=== PATIENT | female | born 1935 | race Caucasian/White ===

== ENCOUNTER 2016-07-22 07:55 | Day surgery (SDC) | payer MEDICARE, BC ==
[~2016-07-22 07:55] MED LIST: Sodium Chloride 0.9% 10 ML Syringe FLUSH PRN
[2016-07-22 10:13] VITALS: BP 158/68
--- NOTE | 2016-07-22 12:58 | OR ---
DATE OF PROCEDURE: 07/22/2016 POSTOPERATIVE CARE: Postoperative care will be provided mainly at the [address] [place] [address] Eye [facility] in conjunction with [facility]. PREOPERATIVE DIAGNOSIS: Cataract, left eye. PREOPERATIVE DIAGNOSIS: Cataract, left eye. PROCEDURE: Phacoemulsification with intraocular lens placement, left eye. ANESTHESIA: Topical and intracameral. ESTIMATED BLOOD LOSS: Minimal. COMPLICATIONS: None. PATHOLOGY SPECIMENS: None. SURGICAL FINDINGS: None. INDICATION FOR PROCEDURE: The patient is an 81-year-old female with history of a visually significant cataract in the left eye, which interfered with activities of daily living. This consisted of a nuclear sclerosis cataract. Following careful discussion of the risks, benefits and alternatives to cataract extraction with intraocular lens placement including blindness and , the patient elected to proceed, and informed, written consent was obtained prior to the procedure. DESCRIPTION OF THE PROCEDURE: The patient was previously identified, and a nasrin placed above the left eye. All sources, including the patient, indicated that the left eye was the correct eye. The patient was subsequently taken to the operating room where standard monitors were applied. The patient was then prepped and draped in the usual sterile fashion for ophthalmic surgery. Attention was first directed at the 12 o'clock position where a paracentesis port was fashioned. Shugar solution followed by Viscoat was instilled into the eye. Attention was then directed to the 8:30 position where a triplanar incision was made in a near-clear manner using a keratome. A continuous capsulorrhexis was then made using a combination of the cystotome and Utrata forceps. Hydrodissection was achieved using a balanced salt solution, and the lens rotated nicely. Phacoemulsification was then done using a modified pabavw-lwn-sadbmpa technique without complication. Phaco time was 21.49 CDE. The remaining cortex was removed using the irrigation/aspiration handpiece. Provisc was then instilled into the eye. A Technis lens, model [id number], at 20.5 diopters was then placed in the capsular bag using an Barron injector. The remaining viscoelastic was removed using the irrigation/aspiration forceps. All wounds were then checked and found to be watertight. The lid speculum and drapes were removed. Maxitrol ointment was placed in the patient's left eye, and the eye was shielded. The patient tolerated the procedure well. The patient was instructed to follow up tomorrow. All needle and sponge counts were correct at the end of the procedure. Kelsey Wright MD /[id number]
== END 2016-07-22 10:15 ==
LOC: JP.SDS 07:55
PROVIDERS: ATTEND Ophthalmology
DX: H26.9 Unspecified cataract (principal); I10 Essential (primary) hypertension; E11.9 Type 2 diabetes mellitus without complications; Z88.0 Allergy status to penicillin; Z91.011 Allergy to milk products
CPT/HCPCS: 66984; C1780

== ENCOUNTER 2016-08-19 06:49 | Day surgery (SDC) | payer MEDICARE, BC, MEDICAID ==
[2016-08-19] MEDS ORDERED: Sodium Chloride 0.9% 10 ML Syringe FLUSH PRN (07:00)
[2016-08-19 09:29] VITALS: BP 128/63
--- NOTE | 2016-08-19 12:28 | OR ---
DATE OF PROCEDURE: 08/19/2016 POSTOPERATIVE CARE: Postoperative care will be provided mainly at the [address] [place] [address] Eye [facility] in conjunction with [facility]. PREOPERATIVE DIAGNOSIS: Cataract, right eye. PREOPERATIVE DIAGNOSIS: Cataract, right eye. PROCEDURE: Phacoemulsification with intraocular lens placement, right eye. ANESTHESIA: Topical and intracameral. ESTIMATED BLOOD LOSS: Minimal. COMPLICATIONS: None. PATHOLOGY SPECIMENS: None. SURGICAL FINDINGS: None. INDICATION FOR PROCEDURE: The patient is an 81-year-old female with history of a visually significant cataract in the right eye, which interfered with activities of daily living. This consisted of a nuclear sclerosis cataract. Following careful discussion of the risks, benefits and alternatives to cataract extraction with intraocular lens placement including blindness and , the patient elected to proceed, and informed, written consent was obtained prior to the procedure. DESCRIPTION OF THE PROCEDURE: The patient was previously identified, and a nasrin placed above the right eye. All sources, including the patient, indicated that the right eye was the correct eye. The patient was subsequently taken to the operating room where standard monitors were applied. The patient was then prepped and draped in the usual sterile fashion for ophthalmic surgery. Attention was first directed at the 12 o'clock position where a paracentesis port was fashioned. Shugar solution followed by Viscoat was instilled into the eye. Attention was then directed to the 8:30 position where a triplanar incision was made in a near-clear manner using a keratome. A continuous capsulorrhexis was then made using a combination of the cystotome and Utrata forceps. Hydrodissection was achieved using a balanced salt solution, and the lens rotated nicely. Phacoemulsification was then done using a modified emgeoy-sfj-dggupbr technique without complication. Phaco time was 25.02 CDE. The remaining cortex was removed using the irrigation/aspiration handpiece. Provisc was then instilled into the eye. A Technis lens, model [id number], at 21.0 diopters was then placed in the capsular bag using an [place] injector. The remaining viscoelastic was removed using the irrigation/aspiration forceps. All wounds were then checked and found to be watertight. The lid speculum and drapes were removed. Maxitrol ointment was placed in the patient's right eye, and the eye was shielded. The patient tolerated the procedure well. The patient was instructed to follow up tomorrow. All needle and sponge counts were correct at the end of the procedure. Kelsey Wright MD /[id number]
== END 2016-08-19 10:00 ==
LOC: JP.SDS 06:49
PROVIDERS: ATTEND Ophthalmology
DX: H26.9 Unspecified cataract (principal); I10 Essential (primary) hypertension; K21.9 Gastro-esophageal reflux disease without esophagitis; E11.9 Type 2 diabetes mellitus without complications; Z88.0 Allergy status to penicillin; Z91.011 Allergy to milk products
CPT/HCPCS: 66984; C1780

== ENCOUNTER 2019-04-09 21:43 | Inpatient (IN) | payer MEDICARE, MEDICAID ==
--- NOTE | 2019-04-09 22:44 | CRLCR ---
INDICATION: Shortness of breath TECHNIQUE: Chest 1 view COMPARISON: None FINDINGS: Cardiovascular and mediastinum: Cardiomegaly with atherosclerotic calcification. Lungs and pleural spaces: Pulmonary cephalization with mild elevation of the right hemidiaphragm. Slight patchy opacities, probably atelectasis. Bones and soft tissues: Left glenohumeral osteoarthritis. IMPRESSION: Cardiomegaly with pulmonary cephalization and slight patchy opacities at the lung bases, probably atelectasis. Dictated by Colby Hedrick MD @ Apr 09 2019 10:42PM Signed by Dr. Colby Hedrick @ Apr 09 2019 10:43PM
--- NOTE | 2019-04-09 23:13 | EDM.PDOC ---
ED HPI GENERAL MEDICAL PROBLEM - General Chief Complaint: Respiratory Problem Stated Complaint: MEDICAL Time Seen by Provider: 04/09/19 23:31 Source of Information: Reports: Patient, EMS, Intermediate Records History Limitations: Reports: No Limitations - History of Present Illness INITIAL COMMENTS - FREE TEXT/NARRATIVE: 84 years old female patient brought in by ambulance with a chief complaint of cough, fever, shortness breath. History collected from her, EMS, residential. Patient was eating, choked on some of her food and started vomiting. Later on she went back to the room and vomited more and starts spiking a fever. 101.3. Per EMS. She was also hypoxic in the low 80s there EMS and requiring 4 or 5 L of oxygen. Shortness breath. Denies any chest pain. Feeling generalized weakness. Denies any abdominal pain diarrhea or constipation. Denies any urinary symptom. - Related Data Allergies Allergy/AdvReac Type Severity Reaction Status Date / Time milk Allergy Cannot Verified 04/09/19 22:16 Remember Penicillins Allergy Hives Verified 04/09/19 22:16 Home Meds: Home Meds Aspirin 325 mg PO DAILY 01/01/13 [History] Cholecalciferol (Vitamin D3) [Vitamin D] 400 units PO DAILY 01/01/13 [History] DULoxetine HCl [Cymbalta] 60 mg PO DAILY 01/01/13 [History] Meclizine HCl 25 mg PO TID PRN 01/01/13 [History] Phenytoin Sodium Extended 200 mg PO DAILY 01/01/13 [History] Phenytoin [Dilantin] 50 mg PO DAILY 01/01/13 [History] Simvastatin 40 mg PO BEDTIME 01/01/13 [History] Gabapentin [Neurontin] 400 - 800 mg PO TID 07/12/14 [History] Insulin Glargine,Hum.Rec.Anlog [Lantus Solostar] 40 units SQ BEDTIME 07/12/14 [ History] Losartan [Cozaar] 100 mg PO DAILY 07/12/14 [History] Oxybutynin [Oxybutynin ER] 10 mg PO DAILY 07/12/14 [History] Valsartan [Diovan] 160 mg PO DAILY 07/12/14 [History] metFORMIN [Glucophage] 1,000 mg PO BID 07/12/14 [History] traMADol [Ultram] 50 mg PO Q6H PRN 07/12/14 [History] Nystatin [Nystatin Crm] 1 applic TOP TID 07/19/16 [History] Past Medical History HEENT History: Reports: Allergic Rhinitis, Cataract, Impaired Vision Other HEENT History: wears glasses Cardiovascular History: Reports: High Cholesterol, Hypertension Gastrointestinal History: Reports: Colon Polyp, GERD Genitourinary History: Reports: Urinary Incontinence 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: Endometriosis, Musculoskeletal History: Reports: Back Pain, Chronic, Fracture, Osteoarthritis Neurological History: Reports: CVA, Seizure Psychiatric History: Reports: Depression Endocrine/Metabolic History: Reports: Diabetes, Type II, Obesity/BMI 30+ Hematologic History: Reports: Blood Transfusion(s) - Infectious Disease History Infectious Disease History: Reports: Chicken Pox, Measles, Rubella, Shingles - Past Surgical History HEENT Surgical History: Reports: Cataract Surgery Cardiovascular Surgical History: Reports: None GI Surgical History: Reports: Colonoscopy Female Surgical History: Reports: None Endocrine Surgical History: Reports: None Neurological Surgical History: Reports: None Musculoskeletal Surgical History: Reports: Hip Replacement Dermatological Surgical History: Reports: None Social & Family History - Tobacco Use Smoking Status *Q: Never Smoker - Caffeine Use Caffeine Use: Reports: Coffee - Recreational Drug Use Recreational Drug Use: No ED ROS GENERAL - Review of Systems Review Of Systems: Comprehensive ROS is negative, except as noted in HPI. ED EXAM, GENERAL - Physical Exam Exam: See Below Exam Limited By: No Limitations General Appearance: Alert, No Apparent Distress Nose: Normal Inspection, Normal Mucosa, No Blood Throat/Mouth: Normal Inspection, Normal Lips, Normal Teeth, Normal Gums, Normal Oropharynx, Normal Voice, No Airway Compromise Head: Atraumatic, Normocephalic Neck: Normal Inspection, Supple, Non-Tender, Full Range of Motion Respiratory/Chest: No Respiratory Distress, No Accessory Muscle Use, Chest Non- Tender, Crackles. No: Respiratory Distress, Wheezing Cardiovascular: Normal Peripheral Pulses, Regular Rate, Rhythm, No Edema, No Gallop, No JVD, No Murmur, No Rub GI/Abdominal: Normal Bowel Sounds, Soft, Non-Tender, No Organomegaly, No Distention, No Abnormal Bruit, No Mass Neurological: Alert, Oriented, CN II-XII Intact, Normal Cognition Psychiatric: Normal Affect, Normal Mood Skin Exam: Warm, Dry, Intact, Normal Color, No Rash Course - Vital Signs Last Recorded V/S: Last Vital Signs Temp 36.8 C 04/09/19 22:14 Pulse 104 H 04/09/19 22:14 Resp 20 04/09/19 22:14 BP 149/54 H 04/09/19 22:14 Pulse Ox 91 L 04/09/19 22:14 - Orders/Labs/Meds Orders: Active Orders 24 hr Category Date Time Status Patient Status [ADT] Routine ADT 04/09/19 23:20 Active Bedrest Bedside Commode [RC] ASDIRECTED Care 04/09/19 23:20 Active Blood Glucose Check, Bedside [RC] WITHMEALSANDBED Care 04/09/19 23:20 Active Oxygen Therapy [RC] PRN Care 04/09/19 23:20 Active Pulse Oximetry [RC] CONTINUOUS Care 04/09/19 23:23 Active RT Aerosol Therapy [RC] ASDIRECTED Care 04/09/19 23:25 Active Up With Assistance [RC] ASDIRECTED Care 04/09/19 23:20 Active Up to Chair [RC] QID Care 04/09/19 23:20 Active VTE/DVT Education [RC] Per Unit Routine Care 04/09/19 23:20 Active Vital Signs [RC] Q4H Care 04/09/19 23:20 Active Regular Diet [DIET] Diet 04/10/19 Breakfast Active CBC WITH AUTO DIFF [HEME] Timed Lab 04/10/19 06:00 Ordered COMPREHENSIVE METABOLIC PN,CMP [CHEM] Timed Lab 04/10/19 06:00 Ordered CULTURE BLOOD [BC] Urgent Lab 04/09/19 22:25 Received INFLUENZA A+B AG SCREEN [RM] Stat Lab 04/09/19 22:42 Ordered PRO B-TYPE NATRIUR PEPT,BNPPRO [CHEM] Stat Lab 04/09/19 23:21 Ordered UA W/MICROSCOPIC [URIN] Urgent Lab 04/09/19 21:51 Ordered Albuterol [Proventil Neb Soln] Med 04/09/19 23:20 Ordered 2.5 mg NEB Q4H PRN Levofloxacin/Dextrose 5%-Water [Levaquin in D5W 750 MG/ Med 04/09/19 23:30 Ordered 150 ML] 750 mg Premix Bag 1 bag IV Q24H Ondansetron [Zofran ODT] Med 04/09/19 23:20 Ordered 4 mg PO Q6H PRN Promethazine [Phenergan] 12.5 mg Med 04/09/19 23:20 Ordered Sodium Chloride 0.9% [Normal Saline] 50 ml IV Q6H Sodium Chloride 0.9% [Normal Saline] 1,000 ml Med 04/09/19 23:21 Active IV .BOLUS Vancomycin 1 gm Med 04/09/19 23:25 Active Sodium Chloride 0.9% [Normal Saline] 250 ml IV ONETIME Resuscitation Status Routine Resus Stat 04/09/19 23:20 Ordered Medication Orders Albuterol (Proventil Neb Soln) 2.5 mg NEB Q4H PRN PRN Reason: Shortness Of Breath/wheezing Sodium Chloride (Normal Saline) 1,000 mls @ 999 mls/hr IV .BOLUS STA Stop: 04/10/19 00:21 Vancomycin HCl 1 gm/ Sodium (Chloride) 250 mls @ 150 mls/hr IV ONETIME ONE Stop: 04/10/19 01:04 Levofloxacin/Dextrose 750 mg/ (Premix) 150 mls @ 100 mls/hr IV Q24H MISTI Promethazine HCl 12.5 mg/ (Sodium Chloride) 50.5 mls @ 200 mls/hr IV Q6H PRN PRN Reason: Nausea/Vomiting Ondansetron HCl (Zofran Odt) 4 mg PO Q6H PRN PRN Reason: Nausea able to take PO Labs: Laboratory Tests 04/09/19 04/09/19 04/09/19 Range/Units 22:25 22:25 22:25 WBC 15.6 H (4.5-11.0) K/uL RBC 4.40 (3.30-5.50) M/uL Hgb 11.8 L D (12.0-15.0) g/dL Hct 39.2 (36.0-48.0) % MCV 89 (80-98) fL MCH 27 (27-31) pg MCHC 30 L (32-36) % Plt Count 377 (150-400) K/uL Neut % (Auto) 85 H (36-66) % Lymph % (Auto) 9 L (24-44) % [place] % (Auto) 6 (2-6) % Eos % (Auto) 1 L (2-4) % Baso % (Auto) 0 (0-1) % PT 9.7 (9.5-12.0) sec INR 0.89 (0.80-1.20) Sodium 143 (140-148) mmol/L Potassium 3.9 (3.6-5.2) mmol/L Chloride 103 (100-108) mmol/L Carbon Dioxide 31 (21-32) mmol/L Anion Gap 8.9 (5.0-14.0) mmol/L BUN 26 H D (7-18) mg/dL Creatinine 1.0 D (0.6-1.0) mg/dL Est Cr Clr Drug Dosing 39.27 mL/min Estimated GFR (MDRD) 53 L (>60) Glucose 88 (74-106) mg/dL Lactic Acid (0.4-2.0) mmol/L Calcium 9.0 (8.5-10.1) mg/dL Total Bilirubin 0.2 (0.2-1.0) mg/dL AST 13 L (15-37) U/L ALT 25 (12-78) U/L Alkaline Phosphatase 76 (46-116) U/L Troponin I 0.045 (0.000-0.056) ng/mL C-Reactive Protein 2.38 H (0.0-0.3) mg/dL Total Protein 7.5 (6.4-8.2) g/dL Albumin 2.9 L (3.4-5.0) g/dL Globulin 4.6 H (2.3-3.5) g/dL Albumin/Globulin Ratio 0.6 L (1.2-2.2) 04/09/19 Range/Units 22:25 WBC (4.5-11.0) K/uL RBC (3.30-5.50) M/uL Hgb (12.0-15.0) g/dL Hct (36.0-48.0) % MCV (80-98) fL MCH (27-31) pg MCHC (32-36) % Plt Count (150-400) K/uL Neut % (Auto) (36-66) % Lymph % (Auto) (24-44) % [place] % (Auto) (2-6) % Eos % (Auto) (2-4) % Baso % (Auto) (0-1) % PT (9.5-12.0) sec INR (0.80-1.20) Sodium (140-148) mmol/L Potassium (3.6-5.2) mmol/L Chloride (100-108) mmol/L Carbon Dioxide (21-32) mmol/L Anion Gap (5.0-14.0) mmol/L BUN (7-18) mg/dL Creatinine (0.6-1.0) mg/dL Est Cr Clr Drug Dosing mL/min Estimated GFR (MDRD) (>60) Glucose (74-106) mg/dL Lactic Acid 2.6 H (0.4-2.0) mmol/L Calcium (8.5-10.1) mg/dL Total Bilirubin (0.2-1.0) mg/dL AST (15-37) U/L ALT (12-78) U/L Alkaline Phosphatase (46-116) U/L Troponin I (0.000-0.056) ng/mL C-Reactive Protein (0.0-0.3) mg/dL Total Protein (6.4-8.2) g/dL Albumin (3.4-5.0) g/dL Globulin (2.3-3.5) g/dL Albumin/Globulin Ratio (1.2-2.2) Meds: Medications Generic Name Dose Route Start Last Admin Trade Name Freq PRN Reason Stop Dose Admin Albuterol 2.5 mg 04/09/19 23:20 Proventil Neb Soln NEB Q4H PRN Shortness Of Breath/wheezing Sodium Chloride 1,000 mls @ 999 mls/hr 04/09/19 23:21 Normal Saline IV 04/10/19 00:21 .BOLUS STA Vancomycin HCl 1 gm/ Sodium 250 mls @ 150 mls/hr 04/09/19 23:25 Chloride IV 04/10/19 01:04 ONETIME ONE Levofloxacin/Dextrose 750 mg/ 150 mls @ 100 mls/hr 04/09/19 23:30 Premix IV Q24H MISTI Promethazine HCl 12.5 mg/ 50.5 mls @ 200 mls/hr 04/09/19 23:20 Sodium Chloride IV Q6H PRN Nausea/Vomiting Ondansetron HCl 4 mg 04/09/19 23:20 Zofran Odt PO Q6H PRN Nausea able to take PO - Re-Assessments/Exams Free Text/Narrative Re-Assessment/Exam: 04/09/19 23:35 Patient was seen and examined shortly after arrival. Stable. On sleep scientist. Started on oxygen. She is slightly tachycardic, given 1 L normal saline bolus. EKG, lab and imaging reviewed. Elevated white count. Elevated lactic acid. X-ray concerning for bilateral patchy infiltrate suspicious for pneumonia. Patient meets criteria for sepsis secondary to pneumonia. Started on vancomycin. And Levaquin. Influenza pending. Symptom improved. 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 Patient agrees with the plan. Stable for admission. Departure - Departure Time of Disposition: 23:37 Disposition: Admitted As Inpatient 64 Condition: Fair Clinical Impression: Sepsis, Pneumonia - Discharge Information *PRESCRIPTION DRUG MONITORING PROGRAM REVIEWED*: Not Applicable *COPY OF PRESCRIPTION DRUG MONITORING REPORT IN PATIENT SANTOS: Not Applicable Referrals: PCP,None [Primary Care Provider] - Forms: ED Department Discharge Sepsis Event Note - Evaluation Sepsis Screening Result: No Definite Risk - Focused Exam Vital Signs: Vital Signs Temp Pulse Resp BP Pulse Ox 04/09/19 22:14 36.8 C 104 H 20 149/54 H 91 L 04/09/19 21:59 36.8 C 104 H 22 H 149/54 H 91 L Date Exam was Performed: 04/09/19 Time Exam was Performed: 23:31 - My Orders Last 24 Hours: My Active Orders 04/09/19 21:51 UA W/MICROSCOPIC [URIN] Urgent 04/09/19 22:25 CULTURE BLOOD [BC] Urgent 04/09/19 22:42 INFLUENZA A+B AG SCREEN [RM] Stat 04/09/19 23:21 PRO B-TYPE NATRIUR PEPT,BNPPRO [CHEM] Stat Sodium Chloride 0.9% [Normal Saline] 1,000 ml IV .BOLUS 04/09/19 23:25 Vancomycin 1 gm Sodium Chloride 0.9% [Normal Saline] 250 ml IV ONETIME - Assessment/Plan Last 24 Hours: My Active Orders 04/09/19 21:51 UA W/MICROSCOPIC [URIN] Urgent 04/09/19 22:25 CULTURE BLOOD [BC] Urgent 04/09/19 22:42 INFLUENZA A+B AG SCREEN [RM] Stat 04/09/19 23:21 PRO B-TYPE NATRIUR PEPT,BNPPRO [CHEM] Stat Sodium Chloride 0.9% [Normal Saline] 1,000 ml IV .BOLUS 04/09/19 23:25 Vancomycin 1 gm Sodium Chloride 0.9% [Normal Saline] 250 ml IV ONETIME Plan: Admitted to Dr. Cano
[2019-04-09] MEDS ORDERED: Sodium Chloride 0.9% 1,000 ML IV STA (23:21)
[2019-04-09] MEDS ORDERED: Insulin Regular, Human 100 Units/ML 3 ML Vial SUBCUT ONE (23:34)
[2019-04-10] MEDS: Levofloxacin/Dextrose 5%-Water 750 MG in Premix Bag 1 BAG IV SCH ×2 (00:28→02:30)
--- NOTE | 2019-04-10 00:33 | PCM.HP.2 ---
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 She was vomiting during dinner and was then having respiratory distress with respirations to 44 and O2 sats down to 60. Patient was given a duoneb at longterm which brought her O2 sats to 89 and her RR down to 35. She denies any chest pain, she does have fevers, chills, nausea and vomiting. She is DNR/DNI Onset of Symptoms: Reports: Today, Sudden Symptom Onset Date: 04/09/19 Symptom Onset Time: 19:00 Duration of Symptoms: Reports: Getting Worse Location: Reports: Chest Improves with: Reports: None Worsens with: Reports: None Associated Symptoms: Reports: Cough, Fever/Chills - Related Data Allergies/Adverse Reactions: Allergies Allergy/AdvReac Type Severity Reaction Status Date / Time milk Allergy Cannot Verified 04/09/19 22:16 Remember Penicillins Allergy Hives Verified 04/09/19 22:16 Home Medications: Home Meds Aspirin 325 mg PO DAILY 01/01/13 [History] Cholecalciferol (Vitamin D3) [Vitamin D] 400 units PO DAILY 01/01/13 [History] DULoxetine HCl [Cymbalta] 60 mg PO DAILY 01/01/13 [History] Meclizine HCl 25 mg PO TID PRN 01/01/13 [History] Insulin Glargine,Hum.Rec.Anlog [Lantus Solostar] 55 units SQ DAILY 07/12/14 [ History] Losartan [Cozaar] 100 mg PO DAILY 07/12/14 [History] Oxybutynin [Oxybutynin ER] 10 mg PO DAILY 07/12/14 [History] metFORMIN [Glucophage] 1,000 mg PO BID 07/12/14 [History] Nystatin [Nystatin Crm] 1 applic TOP TID 07/19/16 [History] Empagliflozin [Jardiance] 25 mg PO DAILY 04/09/19 [History] Insulin Glarg,Human.Rec.Analog [Lantus Solostar] 45 units SQ BEDTIME 04/09/19 [ History] Pregabalin [Lyrica] 50 mg PO BID 04/09/19 [History] amLODIPine [Norvasc] 5 mg PO DAILY 04/09/19 [History] Past Medical History HEENT History: Reports: Allergic Rhinitis, Cataract, Impaired Vision Other HEENT History: wears glasses Cardiovascular History: Reports: High Cholesterol, Hypertension Gastrointestinal History: Reports: Colon Polyp, GERD Genitourinary History: Reports: Urinary Incontinence [employer] History: Reports: Endometriosis, Musculoskeletal History: Reports: Back Pain, Chronic, Fracture, Osteoarthritis Neurological History: Reports: CVA, Seizure Psychiatric History: Reports: Depression Endocrine/Metabolic History: Reports: Diabetes, Type II, Obesity/BMI 30+ Hematologic History: Reports: Blood Transfusion(s) - Infectious Disease History Infectious Disease History: Reports: Chicken Pox, Measles, Rubella, Shingles - Past Surgical History HEENT Surgical History: Reports: Cataract Surgery Cardiovascular Surgical History: Reports: None GI Surgical History: Reports: Colonoscopy Female Surgical History: Reports: None Endocrine Surgical History: Reports: None Neurological Surgical History: Reports: None Musculoskeletal Surgical History: Reports: Hip Replacement Dermatological Surgical History: Reports: None Social & Family History - Tobacco Use Smoking Status *Q: Never Smoker - Caffeine Use Caffeine Use: Reports: Coffee - Recreational Drug Use Recreational Drug Use: No H&P Review of Systems - Review of Systems: Review Of Systems: See Below General: Reports: Fever, Chills HEENT: Reports: No Symptoms Pulmonary: Reports: Shortness of Breath, Wheezing, Cough Cardiovascular: Reports: Blood Pressure Problem Gastrointestinal: Reports: Nausea, Vomiting Genitourinary: Reports: No Symptoms Musculoskeletal: Reports: No Symptoms Skin: Reports: No Symptoms Psychiatric: Reports: No Symptoms Neurological: Reports: No Symptoms Hematologic/Lymphatic: Reports: No Symptoms Immunologic: Reports: No Symptoms Exam - Exam Exam: See Below - Vital Signs Vital Signs: Last Vital Signs Temp 36.8 C 04/09/19 22:14 Pulse 104 H 04/09/19 22:14 Resp 20 04/09/19 22:14 BP 149/54 H 04/09/19 22:14 Pulse Ox 91 L 04/09/19 22:14 Weight: 97.976 kg - Exam General: Alert HEENT: PERRLA, Hearing Intact, Mucosa Moist & [place], Nares Patent, Normal Nasal Septum, Posterior Pharynx Clear, Conjunctiva Clear, EOMI, EACs Clear, TMs Clear Neck: Supple, Trachea Midline, 2 Lungs: Normal Respiratory Effort, Crackles, Wheezing Cardiovascular: Regular Rate, Regular Rhythm GI/Abdominal Exam: Normal Bowel Sounds, Soft, Non-Tender, No Organomegaly, No Distention, No Abnormal Bruit, No Mass, Pelvis Stable (Female) Exam: Deferred Rectal (Female) Exam: Deferred Back Exam: Normal Inspection, Full Range of Motion, NT Extremities: Normal Inspection, Normal Range of Motion, Non-Tender, No Pedal Edema, Normal Capillary Refill Skin: Warm, Dry, Intact Neuro Extensive - Mental Status: Alert, Other (left sided weakness) Psychiatric: Alert, Normal Affect, Normal Mood - Patient Data Lab Results Last 24 hrs: Laboratory Results - last 24 hr 04/09/19 04/09/19 04/09/19 Range/Units 22:25 22:25 22:25 WBC 15.6 H (4.5-11.0) K/uL RBC 4.40 (3.30-5.50) M/uL Hgb 11.8 L D (12.0-15.0) g/dL Hct 39.2 (36.0-48.0) % MCV 89 (80-98) fL MCH 27 (27-31) pg MCHC 30 L (32-36) % Plt Count 377 (150-400) K/uL Neut % (Auto) 85 H (36-66) % Lymph % (Auto) 9 L (24-44) % [place] % (Auto) 6 (2-6) % Eos % (Auto) 1 L (2-4) % Baso % (Auto) 0 (0-1) % PT 9.7 (9.5-12.0) sec INR 0.89 (0.80-1.20) Sodium 143 (140-148) mmol/L Potassium 3.9 (3.6-5.2) mmol/L Chloride 103 (100-108) mmol/L Carbon Dioxide 31 (21-32) mmol/L Anion Gap 8.9 (5.0-14.0) mmol/L BUN 26 H D (7-18) mg/dL Creatinine 1.0 D (0.6-1.0) mg/dL Est Cr Clr Drug Dosing 39.27 mL/min Estimated GFR (MDRD) 53 L (>60) Glucose 88 (74-106) mg/dL Lactic Acid (0.4-2.0) mmol/L Calcium 9.0 (8.5-10.1) mg/dL Total Bilirubin 0.2 (0.2-1.0) mg/dL AST 13 L (15-37) U/L ALT 25 (12-78) U/L Alkaline Phosphatase 76 (46-116) U/L Troponin I 0.045 (0.000-0.056) ng/mL C-Reactive Protein 2.38 H (0.0-0.3) mg/dL NT-Pro-B Natriuret Pep (5-450) pg/mL Total Protein 7.5 (6.4-8.2) g/dL Albumin 2.9 L (3.4-5.0) g/dL Globulin 4.6 H (2.3-3.5) g/dL Albumin/Globulin Ratio 0.6 L (1.2-2.2) 04/09/19 04/09/19 Range/Units 22:25 22:30 WBC (4.5-11.0) K/uL RBC (3.30-5.50) M/uL Hgb (12.0-15.0) g/dL Hct (36.0-48.0) % MCV (80-98) fL MCH (27-31) pg MCHC (32-36) % Plt Count (150-400) K/uL Neut % (Auto) (36-66) % Lymph % (Auto) (24-44) % [place] % (Auto) (2-6) % Eos % (Auto) (2-4) % Baso % (Auto) (0-1) % PT (9.5-12.0) sec INR (0.80-1.20) Sodium (140-148) mmol/L Potassium (3.6-5.2) mmol/L Chloride (100-108) mmol/L Carbon Dioxide (21-32) mmol/L Anion Gap (5.0-14.0) mmol/L BUN (7-18) mg/dL Creatinine (0.6-1.0) mg/dL Est Cr Clr Drug Dosing mL/min Estimated GFR (MDRD) (>60) Glucose (74-106) mg/dL Lactic Acid 2.6 H (0.4-2.0) mmol/L Calcium (8.5-10.1) mg/dL Total Bilirubin (0.2-1.0) mg/dL AST (15-37) U/L ALT (12-78) U/L Alkaline Phosphatase (46-116) U/L Troponin I (0.000-0.056) ng/mL C-Reactive Protein (0.0-0.3) mg/dL NT-Pro-B Natriuret Pep 779 H (5-450) pg/mL Total Protein (6.4-8.2) g/dL Albumin (3.4-5.0) g/dL Globulin (2.3-3.5) g/dL Albumin/Globulin Ratio (1.2-2.2) Result Diagrams: 04/09/19 22:25 04/09/19 22:25 Sepsis Event Note - Evaluation Sepsis Screening Result: No Definite Risk Current Stage of Sepsis: Sepsis Possible Source of Sepsis: Pulmonary - Focused Exam Vital Signs: Vital Signs Temp Pulse Resp BP Pulse Ox 04/09/19 22:14 36.8 C 104 H 20 149/54 H 91 L 04/09/19 21:59 36.8 C 104 H 22 H 149/54 H 91 L Date Exam was Performed: 04/10/19 Time Exam was Performed: 00:37 - Problem List (1) Pneumonia SNOMED Code(s): 633856197 ICD Code: J18.9 - PNEUMONIA, UNSPECIFIED ORGANISM Status: Acute Priority : High Current Visit: Yes Problem Details: Will start vanc and levoquin for aspiration PNA likely caused by vomiting at dinner time. Qualifiers: Pneumonia type: aspiration pneumonia Aspiration pneumonia type: due to vomit Laterality: unspecified laterality Lung location: unspecified part of lung Qualified Code(s): J69.0 - Pneumonitis due to inhalation of food and vomit (2) Sepsis SNOMED Code(s): 75190454 ICD Code: A41.9 - SEPSIS, UNSPECIFIED ORGANISM Status: Acute Current Visit: Yes Problem Details: Patient meets sepsis criteria with RR and Pulse, WBC, elevated lactate and source of infection, will start vanc and levoquin as patient is allergic to PCN Qualifiers: Sepsis type: sepsis due to unspecified organism Sepsis acute organ dysfunction status: without acute organ dysfunction Qualified Code(s): A41.9 - Sepsis, unspecified organism (3) Diabetes mellitus SNOMED Code(s): 36849623 ICD Code: E11.9 - TYPE 2 DIABETES MELLITUS WITHOUT COMPLICATIONS Status: Acute Current Visit: Yes Qualifiers: Diabetes mellitus type: type 2 Diabetes mellitus tank terminal gauger insulin use: with longterm use Diabetes mellitus complication status: with neurologic complications Diabetes mellitus complication detail: with unspecified neuropathy Qualified Code(s): E11.40 - Type 2 diabetes mellitus with diabetic neuropathy, unspecified; Z79.4 - salvage determiner (current) use of insulin (4) Diabetic neuropathy, painful SNOMED Code(s): 952713681, 983960127 ICD Code: E11.40 - TYPE 2 DIABETES MELLITUS WITH DIABETIC NEUROPATHY, UNSP Status: Acute Current Visit: Yes Problem Details: Will decrease patient's dose of lantus while in hospital to prevent hypoglycemia, and will keep mealtime insulin at 3 units. Held oral meds (5) History of CVA (cerebrovascular accident) SNOMED Code(s): 062825730 ICD Code: Z86.73 - PRSNL HX OF TIA (TIA), AND CEREB INFRC W/O RESID DEFICITS Status: Acute Current Visit: Yes Problem Details: patient may need assistance eating or drinking d/t stroke. Patient may benefit from [employer] evaluation d/t concerns for aspiration PNA Problem List Initiated/Reviewed/Updated: Yes Orders Last 24hrs: Active Orders 24 hr Category Date Time Status Patient Status [ADT] Routine ADT 04/09/19 23:20 Active Bedrest Bedside Commode [RC] ASDIRECTED Care 04/09/19 23:20 Active Blood Glucose Check, Bedside [RC] WITHMEALSANDBED Care 04/09/19 23:20 Active Oxygen Therapy [RC] PRN Care 04/09/19 23:20 Active Pulse Oximetry [RC] CONTINUOUS Care 04/09/19 23:23 Active RT Aerosol Therapy [RC] ASDIRECTED Care 04/09/19 23:25 Active Up With Assistance [RC] ASDIRECTED Care 04/09/19 23:20 Active Up to Chair [RC] QID Care 04/09/19 23:20 Active VTE/DVT Education [RC] Per Unit Routine Care 04/09/19 23:20 Active Vital Signs [RC] Q4H Care 04/09/19 23:20 Active Regular Diet [DIET] Diet 04/10/19 Breakfast Active CBC WITH AUTO DIFF [HEME] Routine Lab 04/10/19 06:00 Ordered COMPREHENSIVE METABOLIC PN,CMP [CHEM] Routine Lab 04/10/19 06:00 Ordered CULTURE BLOOD [BC] Urgent Lab 04/09/19 22:25 Received INFLUENZA A+B AG SCREEN [RM] Stat Lab 04/09/19 22:42 Ordered LACTIC ACID [CHEM] Routine Lab 04/10/19 06:00 Ordered UA W/MICROSCOPIC [URIN] Urgent Lab 04/09/19 21:51 Ordered Albuterol [Proventil Neb Soln] Med 04/09/19 23:20 Active 2.5 mg NEB Q4H PRN DULoxetine [Cymbalta] Med 04/10/19 09:00 Active 60 mg PO DAILY Insulin Glarg,Human.Rec.Analog [LantUS Solostar] Med 04/10/19 21:00 Active 30 units SUBCUT BEDTIME Insulin Regular, Human [HumuLIN R] Med 04/10/19 08:00 Active 3 unit SUBCUT WITHMEALSANDBED Levofloxacin/Dextrose 5%-Water [Levaquin in D5W 750 MG/ Med 04/10/19 00:00 Active 150 ML] 750 mg Premix Bag 1 bag IV Q48H Losartan [Cozaar] Med 04/10/19 09:00 Active 100 mg PO DAILY Ondansetron [Zofran ODT] Med 04/09/19 23:20 Active 4 mg PO Q6H PRN Oxybutynin Med 04/10/19 09:00 Pending 5 mg PO DAILY Pregabalin [Lyrica] Med 04/10/19 09:00 Active 50 mg PO BID Promethazine [Phenergan] 12.5 mg Med 04/09/19 23:20 Active Sodium Chloride 0.9% [Normal Saline] 50 ml IV Q6H Vancomycin 1 gm Med 04/09/19 23:25 Active Sodium Chloride 0.9% [Normal Saline] 250 ml IV ONETIME amLODIPine [Norvasc] Med 04/10/19 09:00 Active 5 mg PO DAILY Resuscitation Status Routine Resus Stat 04/09/19 23:20 Ordered Medication Orders Albuterol (Proventil Neb Soln) 2.5 mg NEB Q4H PRN PRN Reason: Shortness Of Breath/wheezing Amlodipine Besylate (Norvasc) 5 mg PO DAILY [facility] Duloxetine HCl (Cymbalta) 60 mg PO DAILY [facility] Vancomycin HCl 1 gm/ Sodium (Chloride) 250 mls @ 150 mls/hr IV ONETIME ONE Stop: 04/10/19 01:04 Levofloxacin/Dextrose 750 mg/ (Premix) 150 mls @ 100 mls/hr IV Q48H [facility] Promethazine HCl 12.5 mg/ (Sodium Chloride) 50.5 mls @ 200 mls/hr IV Q6H PRN PRN Reason: Nausea/Vomiting Insulin Glargine (Lantus Solostar) 30 units SUBCUT BEDTIME [facility] Insulin Human Regular (Humulin R) 3 unit SUBCUT WITHMEALSANDBED [facility] Losartan Potassium (Cozaar) 100 mg PO DAILY [facility] Ondansetron HCl (Zofran Odt) 4 mg PO Q6H PRN PRN Reason: Nausea able to take PO Oxybutynin Chloride (Oxybutynin) 5 mg PO DAILY [facility] Pregabalin (Lyrica) 50 mg PO BID [facility] - Mortality Measure Prognosis:: Good
[2019-04-10] MEDS ORDERED: Insulin Regular, Human 100 Units/ML 3 ML Vial SUBCUT SCH (08:00)
[2019-04-10] MEDS: DULoxetine 30 MG Cap PO SCH (09:10)
[2019-04-10] MEDS: Oxybutynin 5 MG Tab PO SCH ×2 (09:11→21:33)
[2019-04-10] MEDS: Losartan 50 MG Tab PO SCH (09:12)
[2019-04-10] MEDS: Pregabalin 50 MG Cap PO SCH ×2 (09:15→21:33)
[2019-04-10] MEDS: amLODIPine 5 MG Tab PO SCH (09:15)
[2019-04-10] MEDS: cefTRIAXone 1 GM in Sodium Chloride 0.9% 50 ML IV SCH (10:04)
[2019-04-10] MEDS ORDERED: Non-Formulary Medication 1 Each (Aspirin [Aspirin] 325 MG) PO SCH (11:00)
--- NOTE | 2019-04-10 11:02 | PCM.PN ---
- General Info Date of Service: 04/10/19 Subjective Update: No acute events overnight. Still requiring supplemental oxygen. Mild shortness of breath reported but no significant cough. She was febrile overnight. Still has some nausea this morning but no vomiting. In general she feels weak. Urine sample suggestive of infection and culture will be set up this morning. Functional Status: Reports: Pain Controlled, Tolerating Diet - Review of Systems General: Reports: Fever Pulmonary: Reports: Shortness of Breath Gastrointestinal: Reports: Nausea - Patient Data Vitals - Most Recent: Last Vital Signs Temp 37.2 C 04/10/19 07:58 Pulse 82 04/10/19 07:58 Resp 18 04/10/19 07:58 BP 118/48 L 04/10/19 09:15 Pulse Ox 93 L 04/10/19 07:58 Weight - Most Recent: 100.244 kg I&O - Last 24 Hours: Intake & Output 04/09/19 04/10/19 04/10/19 22:59 06:59 14:59 Intake Total 1628 50 Output Total 500 Balance 1128 50 Lab Results Last 24 Hours: Laboratory Results - last 24 hr 04/09/19 04/09/19 04/09/19 Range/Units 22:25 22:25 22:25 WBC 15.6 H (4.5-11.0) K/uL RBC 4.40 (3.30-5.50) M/uL Hgb 11.8 L D (12.0-15.0) g/dL Hct 39.2 (36.0-48.0) % MCV 89 (80-98) fL MCH 27 (27-31) pg MCHC 30 L (32-36) % Plt Count 377 (150-400) K/uL Neut % (Auto) 85 H (36-66) % Lymph % (Auto) 9 L (24-44) % [place] % (Auto) 6 (2-6) % Eos % (Auto) 1 L (2-4) % Baso % (Auto) 0 (0-1) % PT 9.7 (9.5-12.0) sec INR 0.89 (0.80-1.20) Sodium 143 (140-148) mmol/L Potassium 3.9 (3.6-5.2) mmol/L Chloride 103 (100-108) mmol/L Carbon Dioxide 31 (21-32) mmol/L Anion Gap 8.9 (5.0-14.0) mmol/L BUN 26 H D (7-18) mg/dL Creatinine 1.0 D (0.6-1.0) mg/dL Est Cr Clr Drug Dosing 39.27 mL/min Estimated GFR (MDRD) 53 L (>60) Glucose 88 (74-106) mg/dL Lactic Acid (0.4-2.0) mmol/L Calcium 9.0 (8.5-10.1) mg/dL Total Bilirubin 0.2 (0.2-1.0) mg/dL AST 13 L (15-37) U/L ALT 25 (12-78) U/L Alkaline Phosphatase 76 (46-116) U/L Troponin I 0.045 (0.000-0.056) ng/mL C-Reactive Protein 2.38 H (0.0-0.3) mg/dL NT-Pro-B Natriuret Pep (5-450) pg/mL Total Protein 7.5 (6.4-8.2) g/dL Albumin 2.9 L (3.4-5.0) g/dL Globulin 4.6 H (2.3-3.5) g/dL Albumin/Globulin Ratio 0.6 L (1.2-2.2) Urine Color (YELLOW) Urine Appearance (CLEAR) Urine pH (5.0-8.0) Ur Specific [place] (1.008-1.030) Urine Protein (NEGATIVE) mg/dL Urine Glucose (UA) (NEGATIVE) mg/dL Urine Ketones (NEGATIVE) mg/dL Urine Occult Blood (NEGATIVE) Urine Nitrite (NEGATIVE) Urine Bilirubin (NEGATIVE) Urine Urobilinogen (0.2-1.0) EU/dL Ur Leukocyte Esterase (NEGATIVE) Urine RBC (0-5) Urine WBC (0-5) Ur Epithelial Cells Amorphous Sediment Urine Bacteria Urine Mucus 04/09/19 04/09/19 04/10/19 Range/Units 22:25 22:30 01:00 WBC (4.5-11.0) K/uL RBC (3.30-5.50) M/uL Hgb (12.0-15.0) g/dL Hct (36.0-48.0) % MCV (80-98) fL MCH (27-31) pg MCHC (32-36) % Plt Count (150-400) K/uL Neut % (Auto) (36-66) % Lymph % (Auto) (24-44) % [place] % (Auto) (2-6) % Eos % (Auto) (2-4) % Baso % (Auto) (0-1) % PT (9.5-12.0) sec INR (0.80-1.20) Sodium (140-148) mmol/L Potassium (3.6-5.2) mmol/L Chloride (100-108) mmol/L Carbon Dioxide (21-32) mmol/L Anion Gap (5.0-14.0) mmol/L BUN (7-18) mg/dL Creatinine (0.6-1.0) mg/dL Est Cr Clr Drug Dosing mL/min Estimated GFR (MDRD) (>60) Glucose (74-106) mg/dL Lactic Acid 2.6 H (0.4-2.0) mmol/L Calcium (8.5-10.1) mg/dL Total Bilirubin (0.2-1.0) mg/dL AST (15-37) U/L ALT (12-78) U/L Alkaline Phosphatase (46-116) U/L Troponin I (0.000-0.056) ng/mL C-Reactive Protein (0.0-0.3) mg/dL NT-Pro-B Natriuret Pep 779 H (5-450) pg/mL Total Protein (6.4-8.2) g/dL Albumin (3.4-5.0) g/dL Globulin (2.3-3.5) g/dL Albumin/Globulin Ratio (1.2-2.2) Urine Color Yellow (YELLOW) Urine Appearance Cloudy A (CLEAR) Urine pH 6.0 (5.0-8.0) Ur Specific [place] 1.020 (1.008-1.030) Urine Protein 30 H (NEGATIVE) mg/dL Urine Glucose (UA) 500 H (NEGATIVE) mg/dL Urine Ketones Negative (NEGATIVE) mg/dL Urine Occult Blood Negative (NEGATIVE) Urine Nitrite Positive H (NEGATIVE) Urine Bilirubin Negative (NEGATIVE) Urine Urobilinogen 0.2 (0.2-1.0) EU/dL Ur Leukocyte Esterase Trace H (NEGATIVE) Urine RBC 0-5 (0-5) Urine WBC 40-50 H (0-5) Ur Epithelial Cells Few Amorphous Sediment Not seen Urine Bacteria Many Urine Mucus Not seen 04/10/19 04/10/19 04/10/19 Range/Units 05:30 05:30 05:30 WBC 8.9 (4.5-11.0) K/uL RBC 3.79 (3.30-5.50) M/uL Hgb 10.0 L (12.0-15.0) g/dL Hct 34.0 L (36.0-48.0) % MCV 90 (80-98) fL MCH 26 L (27-31) pg MCHC 29 L (32-36) % Plt Count 319 (150-400) K/uL Neut % (Auto) 72 H (36-66) % Lymph % (Auto) 18 L (24-44) % [place] % (Auto) 9 H (2-6) % Eos % (Auto) 1 L (2-4) % Baso % (Auto) 0 (0-1) % PT (9.5-12.0) sec INR (0.80-1.20) Sodium 144 (140-148) mmol/L Potassium 4.0 (3.6-5.2) mmol/L Chloride 105 (100-108) mmol/L Carbon Dioxide 31 (21-32) mmol/L Anion Gap 7.8 (5.0-14.0) mmol/L BUN 22 H (7-18) mg/dL Creatinine 0.9 (0.6-1.0) mg/dL Est Cr Clr Drug Dosing 43.63 mL/min Estimated GFR (MDRD) 59 L (>60) Glucose 47 L* (74-106) mg/dL Lactic Acid 1.2 (0.4-2.0) mmol/L Calcium 8.2 L (8.5-10.1) mg/dL Total Bilirubin 0.2 (0.2-1.0) mg/dL AST 11 L (15-37) U/L ALT 20 (12-78) U/L Alkaline Phosphatase 58 (46-116) U/L Troponin I (0.000-0.056) ng/mL C-Reactive Protein (0.0-0.3) mg/dL NT-Pro-B Natriuret Pep (5-450) pg/mL Total Protein 6.2 L (6.4-8.2) g/dL Albumin 2.4 L (3.4-5.0) g/dL Globulin 3.8 H (2.3-3.5) g/dL Albumin/Globulin Ratio 0.6 L (1.2-2.2) Urine Color (YELLOW) Urine Appearance (CLEAR) Urine pH (5.0-8.0) Ur Specific [place] (1.008-1.030) Urine Protein (NEGATIVE) mg/dL Urine Glucose (UA) (NEGATIVE) mg/dL Urine Ketones (NEGATIVE) mg/dL Urine Occult Blood (NEGATIVE) Urine Nitrite (NEGATIVE) Urine Bilirubin (NEGATIVE) Urine Urobilinogen (0.2-1.0) EU/dL Ur Leukocyte Esterase (NEGATIVE) Urine RBC (0-5) Urine WBC (0-5) Ur Epithelial Cells Amorphous Sediment Urine Bacteria Urine Mucus Cornelio Results Last 24 Hours: Microbiology 04/10/19 01:00 Influenza Type A Antigen Screen - Final Nasal, Unspecified NEGATIVE INFLUENZA A VIRUS AG REFERENCE RANGE: NEGATIVE Influenza Type B Antigen Screen - Final NEGATIVE INFLUENZA B VIRUS AG REFERENCE RANGE: NEGATIVE Med Orders - Current: Current Medications Acetaminophen (Tylenol) 650 mg PO Q4H PRN PRN Reason: Pain/Fever Albuterol (Proventil Neb Soln) 2.5 mg NEB Q4H PRN PRN Reason: Shortness Of Breath/wheezing Amlodipine Besylate (Norvasc) 5 mg PO DAILY [facility] Last Admin: 04/10/19 09:15 Dose: 5 mg Duloxetine HCl (Cymbalta) 60 mg PO DAILY [facility] Last Admin: 04/10/19 09:10 Dose: 60 mg Levofloxacin/Dextrose 750 mg/ (Premix) 150 mls @ 100 mls/hr IV Q48H [facility] Last Admin: 04/10/19 02:30 Dose: 100 mls/hr Promethazine HCl 12.5 mg/ (Sodium Chloride) 50.5 mls @ 200 mls/hr IV Q6H PRN PRN Reason: Nausea/Vomiting Ceftriaxone Sodium 1 gm/ (Sodium Chloride) 50 mls @ 100 mls/hr IV Q24H [facility] Last Admin: 04/10/19 10:04 Dose: 100 mls/hr Insulin Human Lispro (Humalog) 0 unit SUBCUT QIDACANDBED [facility]; Protocol Losartan Potassium (Cozaar) 100 mg PO DAILY [facility] Last Admin: 04/10/19 09:12 Dose: 100 mg Non-Formulary Medication (Aspirin [Aspirin]) 325 mg PO DAILY [facility] Non-Formulary Medication (Metformin [Glucophage]) 1,000 mg PO BIDAC [facility] Ondansetron HCl (Zofran Odt) 4 mg PO Q6H PRN PRN Reason: Nausea able to take PO Oxybutynin Chloride (Oxybutynin) 2.5 mg PO BID [facility] Last Admin: 04/10/19 09:11 Dose: 2.5 mg Pregabalin (Lyrica) 50 mg PO BID [facility] Last Admin: 04/10/19 09:15 Dose: 50 mg Discontinued Medications Sodium Chloride (Normal Saline) 1,000 mls @ 999 mls/hr IV .BOLUS STA Stop: 04/10/19 00:21 Last Admin: 04/10/19 00:22 Dose: 999 mls/hr Vancomycin HCl 1 gm/ Sodium (Chloride) 250 mls @ 150 mls/hr IV ONETIME ONE Stop: 04/10/19 01:04 Last Admin: 04/10/19 00:42 Dose: 150 mls/hr Insulin Glargine (Lantus Solostar) 30 units SUBCUT BEDTIME [facility] Insulin Human Regular (Humulin R) 3 unit SUBCUT WITHMEALSANDBED [facility] Last Admin: 04/10/19 08:46 Dose: Not Given - Exam Quality Assessment: Supplemental Oxygen General: Alert, Oriented, Cooperative, No Acute Distress Lungs: Normal Respiratory Effort, Decreased Breath Sounds (mild left lung base) , Crackles (mild left lung base) Cardiovascular: Regular Rate, Regular Rhythm GI/Abdominal Exam: Normal Bowel Sounds, Soft, No Distention Extremities: No Pedal Edema. No: Increased Warmth Skin: Warm, Dry Psy/Mental Status: Alert, Normal Affect Sepsis Event Note - Evaluation Sepsis Screening Result: No Definite Risk - Focused Exam Vital Signs: Vital Signs Temp Pulse Resp BP BP Pulse Ox 04/10/19 09:15 118/48 L 04/10/19 09:12 118/48 L 04/10/19 07:58 37.2 C 82 18 121/53 L 93 L 04/10/19 07:35 93 L 04/10/19 01:32 38.0 C 89 20 111/48 L 98 04/10/19 00:52 36.3 C 96 20 108/47 L 95 04/09/19 23:23 97 Date Exam was Performed: 04/10/19 Time Exam was Performed: 13:29 - Problem List Review Problem List Initiated/Reviewed/Updated: Yes - My Orders Last 24 Hours: My Active Orders 04/10/19 08:43 Antiembolic Devices [RC] .Routine SCD [Sequential Compression Device] [OM.PC] Routine 04/10/19 08:44 CULTURE URINE [RM] Routine 04/10/19 10:00 cefTRIAXone [Rocephin] 1 gm Sodium Chloride 0.9% [Normal Saline] 50 ml IV Q24H 04/10/19 10:58 Acetaminophen [Tylenol] 650 mg PO Q4H PRN 04/10/19 11:00 Aspirin [Aspirin] 325 mg PO DAILY 04/10/19 11:01 Communication Order [RC] PRN Communication Order [RC] PRN Diabetes Education [RC] Click to Edit Notify Provider [RC] PRN 04/10/19 16:30 metFORMIN [Glucophage] 1,000 mg PO BIDAC 04/10/19 17:00 Insulin Lispro [HumaLOG] See Protocol SUBCUT QIDACANDBED 04/11/19 05:00 BASIC METABOLIC PANEL,BMP [CHEM] Timed CBC W/O DIFF,HEMOGRAM [HEME] Timed (1) - Plan Plan:: ASSESSMENT AND PLAN - Acute cystitis without hematuria-complicated by sepsis. I suspect this infection was the cause for her vomiting which led to the aspiration pneumonitis. Culture will be set up this morning. Still some nausea but otherwise feeling better. Lactic acid level is now normal. -Antibiotic coverage with levofloxacin and ceftriaxone -Follow-up urine culture Aspiration pneumonitis-still on oxygen but clinically doing better with less supplemental oxygen. Lungs are relatively clear at this point. Complicated by acute respiratory failure with hypoxia. Swallowing well so I do not believe that she is much of an aspiration risk at this time. -Supplement oxygen as needed -antibiotic coverage as above -Nebulizers as needed Insulin-dependent diabetes mellitus-hypoglycemic this morning despite reductions in her medications last night. Planning to hold mealtime and long- acting insulin until we see how her blood sugars trend over the next 12 to 24 hours. 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 -Continue medical management Maintenance issues - - DVT prophylaxis -SCDs - GI prophylaxis -PPI - Nutrition -diabetic - Garcia catheter -not indicated Disposition - I anticipate discharge back to the assisted after the hospital stay Stanley Nobles M.D.
[2019-04-10] MEDS: Ondansetron 4 MG Tab.DIS PO PRN (11:03)
[2019-04-10] MEDS: Promethazine 12.5 MG in Sodium Chloride 0.9% 50 ML IV PRN (11:32)
[2019-04-10] MEDS: Aspirin 325 MG Tab.EC PO SCH (12:16)
[2019-04-10] MEDS: Acetaminophen 325 MG Tab PO PRN (12:26)
[2019-04-10] MEDS: Albuterol 0.083% 2.5 MG/3 ML Neb Soln NEB PRN (14:16)
[2019-04-10] MEDS ORDERED: Non-Formulary Medication 1 Each (Metformin [Glucophage] 1,000 MG) PO SCH (16:30)
[2019-04-10] MEDS: metFORMIN 500 MG Tab PO SCH (17:26)
[2019-04-10] MEDS: Insulin Lispro 100 Unit/ML 3 ML KwikPen SUBCUT SCH ×2 (17:29→21:33)
[2019-04-10] MEDS ORDERED: Insulin Glargine,Human Rec. Analog 100 Units/ML 3 ML Pen SUBCUT SCH (21:00)
[2019-04-11] MEDS: Acetaminophen 325 MG Tab PO PRN ×2 (04:04→15:59)
[2019-04-11] MEDS: Albuterol 0.083% 2.5 MG/3 ML Neb Soln NEB PRN ×2 (07:37→15:56)
[2019-04-11] MEDS: Insulin Lispro 100 Unit/ML 3 ML KwikPen SUBCUT SCH ×4 (08:08→21:56)
[2019-04-11] MEDS: metFORMIN 500 MG Tab PO SCH ×2 (08:29→17:51)
[2019-04-11] MEDS: Losartan 50 MG Tab PO SCH (08:30)
[2019-04-11] MEDS: DULoxetine 30 MG Cap PO SCH (08:30)
[2019-04-11] MEDS: Aspirin 325 MG Tab.EC PO SCH (08:31)
[2019-04-11] MEDS: Oxybutynin 5 MG Tab PO SCH ×2 (08:31→21:55)
[2019-04-11] MEDS: amLODIPine 5 MG Tab PO SCH (08:36)
[2019-04-11] MEDS: Pregabalin 50 MG Cap PO SCH ×2 (08:36→21:55)
[2019-04-11] MEDS: cefTRIAXone 1 GM in Sodium Chloride 0.9% 50 ML IV SCH (10:30)
[2019-04-11] MEDS: Ondansetron 4 MG Tab.DIS PO PRN (10:36)
--- NOTE | 2019-04-11 11:00 | PCM.PN ---
- General Info Date of Service: 04/11/19 Subjective Update: Yesterday evening the patient had an episode with difficult swallowing followed by emesis and then a decline in her respiratory status. She is using more supplemental oxygen today than she had been yesterday. She does not feel significantly short of breath and has not been coughing much. No fevers overnight. She was seen by speech pathology today and did very well with her swallowing studies. No complaints of abdominal pain or nausea today. Urine culture still pending. Functional Status: Reports: Pain Controlled, Tolerating Diet - Review of Systems General: Reports: Weakness. Denies: Fever Pulmonary: Reports: Shortness of Breath - Patient Data Vitals - Most Recent: Last Vital Signs Temp 37.1 C 04/11/19 09:03 Pulse 103 H 04/11/19 09:03 Resp 22 H 04/11/19 09:03 BP 118/56 L 04/11/19 09:03 Pulse Ox 90 L 04/11/19 09:03 Weight - Most Recent: 100.244 kg I&O - Last 24 Hours: Intake & Output 04/10/19 04/11/19 04/11/19 22:59 06:59 14:59 Intake Total 150 Output Total 75 Balance 150 -75 Lab Results Last 24 Hours: Laboratory Results - last 24 hr 04/11/19 04/11/19 Range/Units 04:00 04:00 WBC 11.3 H (4.5-11.0) K/uL RBC 4.09 (3.30-5.50) M/uL Hgb 10.6 L (12.0-15.0) g/dL Hct 37.3 (36.0-48.0) % MCV 91 (80-98) fL MCH 26 L (27-31) pg MCHC 28 L (32-36) % Plt Count 342 (150-400) K/uL Sodium 142 (140-148) mmol/L Potassium 4.1 (3.6-5.2) mmol/L Chloride 104 (100-108) mmol/L Carbon Dioxide 31 (21-32) mmol/L Anion Gap 7.4 (5.0-14.0) mmol/L BUN 20 H (7-18) mg/dL Creatinine 1.1 H (0.6-1.0) mg/dL Est Cr Clr Drug Dosing 35.60 mL/min Estimated GFR (MDRD) 47 L (>60) Glucose 123 H (74-106) mg/dL Calcium 8.7 (8.5-10.1) mg/dL Cornelio Results Last 24 Hours: Microbiology 04/10/19 08:44 Urine Culture - Preliminary Urine, Clean Catch 04/09/19 22:25 Aerobic Blood Culture - Preliminary Blood NO GROWTH AFTER 1 DAY Anaerobic Blood Culture - Preliminary NO GROWTH AFTER 1 DAY Med Orders - Current: Current Medications Acetaminophen (Tylenol) 650 mg PO Q4H PRN PRN Reason: Pain/Fever Last Admin: 04/11/19 04:04 Dose: 650 mg Albuterol (Proventil Neb Soln) 2.5 mg NEB Q4H PRN PRN Reason: Shortness Of Breath/wheezing Last Admin: 04/11/19 07:37 Dose: 2.5 mg Amlodipine Besylate (Norvasc) 5 mg PO DAILY [facility] Last Admin: 04/11/19 08:36 Dose: Not Given Aspirin (Ecotrin) 325 mg PO DAILY [facility] Last Admin: 04/11/19 08:31 Dose: 325 mg Duloxetine HCl (Cymbalta) 60 mg PO DAILY [facility] Last Admin: 04/11/19 08:30 Dose: 60 mg Levofloxacin/Dextrose 750 mg/ (Premix) 150 mls @ 100 mls/hr IV Q48H [facility] Last Admin: 04/10/19 02:30 Dose: 100 mls/hr Promethazine HCl 12.5 mg/ (Sodium Chloride) 50.5 mls @ 200 mls/hr IV Q6H PRN PRN Reason: Nausea/Vomiting Last Admin: 04/10/19 11:32 Dose: 200 mls/hr Ceftriaxone Sodium 1 gm/ (Sodium Chloride) 50 mls @ 100 mls/hr IV Q24H [facility] Last Admin: 04/11/19 10:30 Dose: 100 mls/hr Insulin Human Lispro (Humalog) 0 unit SUBCUT QIDACANDBED [facility]; Protocol Last Admin: 04/11/19 08:08 Dose: Not Given Losartan Potassium (Cozaar) 100 mg PO DAILY [facility] Last Admin: 04/11/19 08:30 Dose: Not Given Metformin HCl (Glucophage) 1,000 mg PO BIDMEALS [facility] Last Admin: 04/11/19 08:29 Dose: 500 mg Methylprednisolone Sodium Succinate (Solu-Medrol) 125 mg IVPUSH ONETIME ONE Stop: 04/11/19 10:58 Ondansetron HCl (Zofran Odt) 4 mg PO Q6H PRN PRN Reason: Nausea able to take PO Last Admin: 04/11/19 10:36 Dose: 4 mg Oxybutynin Chloride (Oxybutynin) 2.5 mg PO BID [facility] Last Admin: 04/11/19 08:31 Dose: 2.5 mg Pregabalin (Lyrica) 50 mg PO BID [facility] Last Admin: 04/11/19 08:36 Dose: 50 mg Discontinued Medications Sodium Chloride (Normal Saline) 1,000 mls @ 999 mls/hr IV .BOLUS STA Stop: 04/10/19 00:21 Last Admin: 04/10/19 00:22 Dose: 999 mls/hr Vancomycin HCl 1 gm/ Sodium (Chloride) 250 mls @ 150 mls/hr IV ONETIME ONE Stop: 04/10/19 01:04 Last Admin: 04/10/19 00:42 Dose: 150 mls/hr Insulin Human Regular (Humulin R) 3 unit SUBCUT WITHMEALSANDBED [facility] Last Admin: 04/10/19 08:46 Dose: Not Given - Exam Quality Assessment: Supplemental Oxygen General: Alert, Oriented, Cooperative, No Acute Distress Lungs: Normal Respiratory Effort, Decreased Breath Sounds (left lung base), Crackles (left lung base) Cardiovascular: Regular Rate, Regular Rhythm GI/Abdominal Exam: Soft, No Distention Extremities: No Pedal Edema. No: Increased Warmth Skin: Warm, Dry Psy/Mental Status: Alert, Normal Affect Sepsis Event Note - Evaluation Sepsis Screening Result: No Definite Risk - Focused Exam Vital Signs: Vital Signs Temp Pulse Resp BP BP Pulse Ox Pulse Ox 04/11/19 09:03 37.1 C 103 H 22 H 118/56 L 90 L 04/11/19 08:36 90/39 L 04/11/19 08:30 90/39 L 04/11/19 07:34 36.8 C 93 18 108/43 L 89 L 04/11/19 04:59 91 L 04/11/19 04:00 36.6 C 88 22 H 114/50 L 92 L Date Exam was Performed: 04/11/19 Time Exam was Performed: 14:19 - Problem List Review Problem List Initiated/Reviewed/Updated: Yes - My Orders Last 24 Hours: My Active Orders 04/10/19 10:00 cefTRIAXone [Rocephin] 1 gm Sodium Chloride 0.9% [Normal Saline] 50 ml IV Q24H 04/10/19 10:58 Acetaminophen [Tylenol] 650 mg PO Q4H PRN 04/10/19 11:01 Communication Order [RC] PRN Communication Order [RC] PRN Diabetes Education [RC] Click to Edit Notify Provider [RC] PRN 04/10/19 12:00 Aspirin [Ecotrin] 325 mg PO DAILY 04/10/19 14:21 SEARCH MANAGER Eval and Treat [SEARCH MANAGER Evaluation and Treatment] [CONS] Routine 04/10/19 17:00 Insulin Lispro [HumaLOG] See Protocol SUBCUT QIDACANDBED metFORMIN [Glucophage] 1,000 mg PO BIDMEALS 04/10/19 Dinner Mechanical Soft Diet [DIET] 04/11/19 10:57 methylPREDNISolone Sod Succ [Solu-MEDROL] 125 mg IVPUSH ONETIME ONE 04/12/19 05:00 BASIC METABOLIC PANEL,BMP [CHEM] Timed CBC W/O DIFF,HEMOGRAM [HEME] Timed (1) - Plan Plan:: ASSESSMENT AND PLAN - Acute cystitis without hematuria-complicated by sepsis which has resolved. I suspect this infection was the cause for her vomiting which led to the aspiration pneumonitis. Culture still pending with gram-negative radha growing. No significant nausea or confusion today. -Antibiotic coverage as below -Follow-up urine culture Aspiration pneumonitis-second episode of aspiration last night with increasing oxygen requirements. Clinically she looks good and is stable so hopefully respiratory status will come around in the next day or 2. No evidence for aspiration with speech pathology evaluation today. -Antibiotic coverage with levofloxacin and ceftriaxone -Dose of Solu-Medrol today -Supplement oxygen as needed -Pulmonary toilet with inspiratory spirometer -Nebulizers as needed Insulin-dependent diabetes mellitus-blood sugars have been acceptable with current management. 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 -Continue medical management Maintenance issues - - DVT prophylaxis -SCDs - GI prophylaxis -PPI - Nutrition -diabetic - Garcia catheter -not indicated [facility] Stanley Nobles M.D.
[2019-04-11] MEDS ORDERED: methylPREDNISolone Sodium Succinate 125 MG/2 ML SDV IVPUSH ONE (11:45)
[2019-04-11] MEDS: methylPREDNISolone Sodium Succinate 125 MG/2 ML SDV IVPUSH SCH (19:26)
[2019-04-11] MEDS ORDERED: Insulin Glargine,Human Rec. Analog 100 Units/ML 3 ML Pen SUBCUT SCH (21:00)
[2019-04-11] MEDS: Albuterol/Ipratropium 3.0-0.5 MG/3 ML Neb Soln NEB SCH (21:55)
[2019-04-12] MEDS: Levofloxacin/Dextrose 5%-Water 750 MG in Premix Bag 1 BAG IV SCH (00:21)
[2019-04-12] MEDS: methylPREDNISolone Sodium Succinate 125 MG/2 ML SDV IVPUSH SCH ×3 (03:59→20:57)
[2019-04-12] MEDS: Albuterol/Ipratropium 3.0-0.5 MG/3 ML Neb Soln NEB SCH ×4 (07:14→20:56)
[2019-04-12] MEDS: DULoxetine 30 MG Cap PO SCH (08:08)
[2019-04-12] MEDS: metFORMIN 500 MG Tab PO SCH ×2 (08:08→17:57)
[2019-04-12] MEDS: Oxybutynin 5 MG Tab PO SCH ×2 (08:09→20:56)
[2019-04-12] MEDS: Aspirin 325 MG Tab.EC PO SCH (08:10)
[2019-04-12] MEDS: Pregabalin 50 MG Cap PO SCH ×2 (08:16→20:56)
[2019-04-12] MEDS: Insulin Lispro 100 Unit/ML 3 ML KwikPen SUBCUT SCH ×4 (08:25→20:58)
--- NOTE | 2019-04-12 10:43 | PCM.PN ---
- General Info Date of Service: 04/12/19 Subjective Update: Overnight the patient had an increase in her oxygen requirements and was up to 6 L via mask. This morning she is feeling less short of breath and is still requiring oxygen but down to 5 L via nasal cannula. No significant sputum production but she does have a loose sounding cough on occasion. No chest pain. Appetite improving. Blood sugar is rising after being on the low side a couple of days ago. No fevers overnight. Cultures negative other than her urine culture which had pansensitive E. coli. Functional Status: Reports: Pain Controlled - Review of Systems General: Reports: Weakness Pulmonary: Reports: Shortness of Breath - Patient Data Vitals - Most Recent: Last Vital Signs Temp 35.7 C 04/12/19 07:00 Pulse 96 04/12/19 10:40 Resp 16 04/12/19 07:00 BP 123/53 L 04/12/19 07:00 Pulse Ox 90 L 04/12/19 07:14 Weight - Most Recent: 100.244 kg I&O - Last 24 Hours: Intake & Output 04/11/19 04/12/19 04/12/19 22:59 06:59 14:59 Intake Total 510 Output Total 550 350 Balance -40 -350 Lab Results Last 24 Hours: Laboratory Results - last 24 hr 04/12/19 04/12/19 Range/Units 04:13 04:13 WBC 8.3 (4.5-11.0) K/uL RBC 3.64 (3.30-5.50) M/uL Hgb 9.7 L (12.0-15.0) g/dL Hct 32.9 L (36.0-48.0) % MCV 90 (80-98) fL MCH 27 (27-31) pg MCHC 30 L (32-36) % Plt Count 353 (150-400) K/uL Sodium 138 L (140-148) mmol/L Potassium 4.8 (3.6-5.2) mmol/L Chloride 102 (100-108) mmol/L Carbon Dioxide 29 (21-32) mmol/L Anion Gap 11.8 (5.0-14.0) mmol/L BUN 25 H (7-18) mg/dL Creatinine 1.2 H (0.6-1.0) mg/dL Est Cr Clr Drug Dosing 32.64 mL/min Estimated GFR (MDRD) 43 L (>60) Glucose 273 H (74-106) mg/dL Calcium 8.9 (8.5-10.1) mg/dL Cornelio Results Last 24 Hours: Microbiology 04/10/19 08:44 Urine Culture - Final Urine, Clean Catch Escherichia Coli 04/09/19 22:25 Aerobic Blood Culture - Preliminary Blood NO GROWTH AFTER 2 DAYS Anaerobic Blood Culture - Preliminary NO GROWTH AFTER 2 DAYS Med Orders - Current: Current Medications Acetaminophen (Tylenol) 650 mg PO Q4H PRN PRN Reason: Pain/Fever Last Admin: 04/11/19 15:59 Dose: 650 mg Albuterol (Proventil Neb Soln) 2.5 mg NEB Q4H PRN PRN Reason: Shortness Of Breath/wheezing Last Admin: 04/11/19 15:56 Dose: 2.5 mg Albuterol/Ipratropium (Duoneb 3.0-0.5 Mg/3 Ml) 3 ml NEB QIDRT [facility] Last Admin: 04/12/19 07:14 Dose: 3 ml Amlodipine Besylate (Norvasc) 5 mg PO DAILY [facility] Last Admin: 04/11/19 08:36 Dose: Not Given Aspirin (Ecotrin) 325 mg PO DAILY [facility] Last Admin: 04/12/19 08:10 Dose: 325 mg Duloxetine HCl (Cymbalta) 60 mg PO DAILY [facility] Last Admin: 04/12/19 08:08 Dose: 60 mg Levofloxacin/Dextrose 750 mg/ (Premix) 150 mls @ 100 mls/hr IV Q48H [facility] Last Admin: 04/12/19 00:21 Dose: 100 mls/hr Promethazine HCl 12.5 mg/ (Sodium Chloride) 50.5 mls @ 200 mls/hr IV Q6H PRN PRN Reason: Nausea/Vomiting Last Admin: 04/10/19 11:32 Dose: 200 mls/hr Ceftriaxone Sodium 1 gm/ (Sodium Chloride) 50 mls @ 100 mls/hr IV Q24H [facility] Last Admin: 04/11/19 10:30 Dose: 100 mls/hr Insulin Human Lispro (Humalog) 0 unit SUBCUT QIDACANDBED [facility]; Protocol Last Admin: 04/12/19 08:25 Dose: 6 units Losartan Potassium (Cozaar) 100 mg PO DAILY [facility] Last Admin: 04/11/19 08:30 Dose: Not Given Metformin HCl (Glucophage) 1,000 mg PO BIDMEALS [facility] Last Admin: 04/12/19 08:08 Dose: 1,000 mg Methylprednisolone Sodium Succinate (Solu-Medrol) 62.5 mg IVPUSH Q8H [facility] Last Admin: 04/12/19 03:59 Dose: 62.5 mg Ondansetron HCl (Zofran Odt) 4 mg PO Q6H PRN PRN Reason: Nausea able to take PO Last Admin: 04/11/19 10:36 Dose: 4 mg Oxybutynin Chloride (Oxybutynin) 2.5 mg PO BID [facility] Last Admin: 04/12/19 08:09 Dose: 2.5 mg Pregabalin (Lyrica) 50 mg PO BID [facility] Last Admin: 04/12/19 08:16 Dose: 50 mg Discontinued Medications Sodium Chloride (Normal Saline) 1,000 mls @ 999 mls/hr IV .BOLUS STA Stop: 04/10/19 00:21 Last Admin: 04/10/19 00:22 Dose: 999 mls/hr Vancomycin HCl 1 gm/ Sodium (Chloride) 250 mls @ 150 mls/hr IV ONETIME ONE Stop: 04/10/19 01:04 Last Admin: 04/10/19 00:42 Dose: 150 mls/hr Insulin Glargine (Lantus Solostar) 10 units SUBCUT BEDTIME [facility] Last Admin: 04/11/19 21:55 Dose: 10 units Insulin Human Regular (Humulin R) 3 unit SUBCUT WITHMEALSANDBED [facility] Last Admin: 04/10/19 08:46 Dose: Not Given Methylprednisolone Sodium Succinate (Solu-Medrol) 125 mg IVPUSH ONETIME ONE Stop: 04/11/19 11:46 Last Admin: 04/11/19 12:12 Dose: 125 mg - Exam Quality Assessment: Supplemental Oxygen General: Alert, Oriented, Cooperative, No Acute Distress Lungs: Normal Respiratory Effort, Decreased Breath Sounds (both bases), Crackles (both bases) Cardiovascular: Regular Rate, Regular Rhythm GI/Abdominal Exam: Soft, No Distention Extremities: No Pedal Edema, Other (left great toe is slightly cool ). No: Increased Warmth Skin: Warm, Dry Psy/Mental Status: Alert, Normal Affect Sepsis Event Note - Evaluation Sepsis Screening Result: No Definite Risk - Focused Exam Vital Signs: Vital Signs Temp Pulse Resp BP Pulse Ox Pulse Ox 04/12/19 10:40 96 04/12/19 07:15 82 04/12/19 07:14 90 L 04/12/19 07:00 35.7 C 89 16 123/53 L 91 L 04/12/19 05:37 90 L 04/12/19 05:35 90 L 04/12/19 03:56 36.1 C 82 20 108/47 L 94 L 04/12/19 01:52 94 L 04/12/19 01:04 93 L 04/12/19 00:45 88 L Date Exam was Performed: 04/12/19 Time Exam was Performed: 14:46 - Problem List Review Problem List Initiated/Reviewed/Updated: Yes - My Orders Last 24 Hours: My Active Orders 04/11/19 20:00 methylPREDNISolone Sod Succ [Solu-MEDROL] 62.5 mg IVPUSH Q8H 04/11/19 21:00 Albuterol/Ipratropium [DuoNeb 3.0-0.5 MG/3 ML] 3 ml NEB QIDRT 04/12/19 21:00 Insulin Glarg,Human.Rec.Analog [LantUS Solostar] 30 units SUBCUT BEDTIME 04/13/19 05:00 BASIC METABOLIC PANEL,BMP [CHEM] Timed CBC W/O DIFF,HEMOGRAM [HEME] Timed (1) - Plan Plan:: ASSESSMENT AND PLAN - Acute cystitis without hematuria-complicated by sepsis which has resolved. I suspect this infection was the cause for her vomiting which led to the aspiration pneumonitis. Culture grew out pansensitive E. coli. -Antibiotic coverage as below -Follow-up urine culture Aspiration pneumonitis-second episode of aspiration 2 nights ago with increasing oxygen requirements. Clinically she is looking and feeling better today with a slight decrease in her supplemental oxygen requirement but respiratory status is still tenuous. -Antibiotic coverage with levofloxacin and ceftriaxone -Continue Solu-Medrol for at least 1 more day -Supplement oxygen as needed -Pulmonary toilet with inspiratory spirometer -Nebulizers as needed Insulin-dependent diabetes mellitus-blood sugars rising with administration of IV steroid. 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 -Continue medical management Maintenance issues - - DVT prophylaxis -SCDs - GI prophylaxis -PPI - Nutrition -diabetic - Garcia catheter -not indicated Disposition - I anticipate discharge back to the [place] [facility] the hospital stay Stanley Nobles M.D.
[2019-04-12] MEDS: cefTRIAXone 1 GM in Sodium Chloride 0.9% 50 ML IV SCH (11:50)
[2019-04-12] MEDS: Insulin Glargine,Human Rec. Analog 100 Units/ML 3 ML Pen SUBCUT SCH (20:59)
[2019-04-13] MEDS: methylPREDNISolone Sodium Succinate 125 MG/2 ML SDV IVPUSH SCH (03:30)
[2019-04-13] MEDS: Albuterol 0.083% 2.5 MG/3 ML Neb Soln NEB PRN (04:26)
[2019-04-13] MEDS: Albuterol/Ipratropium 3.0-0.5 MG/3 ML Neb Soln NEB SCH ×4 (07:07→21:02)
[2019-04-13] MEDS: Insulin Lispro 100 Unit/ML 3 ML KwikPen SUBCUT SCH ×4 (08:17→21:01)
[2019-04-13] MEDS: metFORMIN 500 MG Tab PO SCH ×3 (08:18→17:46)
[2019-04-13] MEDS: DULoxetine 30 MG Cap PO SCH (10:10)
[2019-04-13] MEDS: Aspirin 325 MG Tab.EC PO SCH (10:11)
[2019-04-13] MEDS: amLODIPine 5 MG Tab PO SCH (10:12)
[2019-04-13] MEDS: Losartan 50 MG Tab PO SCH (10:12)
[2019-04-13] MEDS: Insulin Glargine,Human Rec. Analog 100 Units/ML 3 ML Pen SUBCUT SCH ×2 (10:13→21:03)
[2019-04-13] MEDS: Oxybutynin 5 MG Tab PO SCH ×2 (10:14→21:05)
[2019-04-13] MEDS: Pregabalin 50 MG Cap PO SCH ×2 (10:15→21:06)
--- NOTE | 2019-04-13 10:26 | CRLCR ---
Indication: Cough and hypoxia Technique: A single portable view of the chest was acquired Comparison: A similar study of April 09, 2019 Findings: The heart size is top normal but appears unchanged. There is moderate diffuse multifocal airspace disease bilaterally, left greater than right. This appearance has minimally worsened given technical factors when compared to the prior study. There is no definite pleural effusion or pneumothorax. The imaging features are overlap in appearance between pulmonary edema and multifocal pneumonia. Impression: Moderate diffuse multifocal airspace disease bilaterally somewhat worsened since April 09, 2021. No pleural effusions. Dictated by Lucio Salinas MD @ Apr 13 2019 10:23AM Signed by Dr. Lucio Salinas @ Apr 13 2019 10:26AM
--- NOTE | 2019-04-13 10:58 | PCM.PN ---
- General Info Date of Service: 04/13/19 Subjective Update: No acute events overnight. Still needing quite a bit of oxygen but looks good. Currently on 8 L via mask. Mild SOB and loose cough. No fevers. Repeat CXR today with diffuse patchy infiltrates. Mild lower chest pain with coughing. Appetite good. Sugars elevated in the past 24 hours. Kidney function stable. Cultures negative so far. Functional Status: Reports: Pain Controlled, Tolerating Diet - Review of Systems General: Denies: Fever Pulmonary: Reports: Shortness of Breath, Cough Cardiovascular: Reports: Chest Pain - Patient Data Vitals - Most Recent: Last Vital Signs Temp 36.5 C 04/13/19 07:00 Pulse 93 04/13/19 02:52 Resp 20 04/13/19 07:00 BP 169/51 H 04/13/19 10:12 Pulse Ox 86 L 04/13/19 07:42 Weight - Most Recent: 100.244 kg I&O - Last 24 Hours: Intake & Output 04/12/19 04/13/19 04/13/19 22:59 06:59 14:59 Intake Total 120 120 Output Total 175 Balance -55 120 Lab Results Last 24 Hours: Laboratory Results - last 24 hr 04/13/19 04/13/19 Range/Units 04:12 04:12 WBC 15.4 H (4.5-11.0) K/uL RBC 3.82 (3.30-5.50) M/uL Hgb 9.9 L (12.0-15.0) g/dL Hct 34.3 L (36.0-48.0) % MCV 90 (80-98) fL MCH 26 L (27-31) pg MCHC 29 L (32-36) % Plt Count 423 H (150-400) K/uL Sodium 140 (140-148) mmol/L Potassium 4.6 (3.6-5.2) mmol/L Chloride 104 (100-108) mmol/L Carbon Dioxide 29 (21-32) mmol/L Anion Gap 6.9 (5.0-14.0) mmol/L BUN 37 H (7-18) mg/dL Creatinine 1.1 H (0.6-1.0) mg/dL Est Cr Clr Drug Dosing 35.60 mL/min Estimated GFR (MDRD) 47 L (>60) Glucose 242 H (74-106) mg/dL Calcium 9.0 (8.5-10.1) mg/dL Cornelio Results Last 24 Hours: Microbiology 04/09/19 22:25 Aerobic Blood Culture - Preliminary Blood NO GROWTH AFTER 3 DAYS Anaerobic Blood Culture - Preliminary NO GROWTH AFTER 3 DAYS 04/10/19 08:44 Urine Culture - Final Urine, Clean Catch Escherichia Coli Med Orders - Current: Current Medications Acetaminophen (Tylenol) 650 mg PO Q4H PRN PRN Reason: Pain/Fever Last Admin: 04/11/19 15:59 Dose: 650 mg Albuterol (Proventil Neb Soln) 2.5 mg NEB Q4H PRN PRN Reason: Shortness Of Breath/wheezing Last Admin: 04/13/19 04:26 Dose: 2.5 mg Albuterol/Ipratropium (Duoneb 3.0-0.5 Mg/3 Ml) 3 ml NEB QIDRT [facility] Last Admin: 04/13/19 07:07 Dose: 3 ml Amlodipine Besylate (Norvasc) 5 mg PO DAILY [facility] Last Admin: 04/13/19 10:12 Dose: 5 mg Aspirin (Ecotrin) 325 mg PO DAILY [facility] Last Admin: 04/13/19 10:11 Dose: 325 mg Duloxetine HCl (Cymbalta) 60 mg PO DAILY [facility] Last Admin: 04/13/19 10:10 Dose: 60 mg Promethazine HCl 12.5 mg/ (Sodium Chloride) 50.5 mls @ 200 mls/hr IV Q6H PRN PRN Reason: Nausea/Vomiting Last Admin: 04/10/19 11:32 Dose: 200 mls/hr Ceftazidime 1 gm/ Sodium (Chloride) 50 mls @ 100 mls/hr IV Q8H [facility] Last Admin: 04/13/19 10:50 Dose: 100 mls/hr Doxycycline Hyclate 100 mg/ (Sodium Chloride) 100 mls @ 100 mls/hr IV Q12H [facility] Insulin Glargine (Lantus Solostar) 30 units SUBCUT BEDTIME [facility] Last Admin: 04/12/19 20:59 Dose: 30 units Insulin Glargine (Lantus Solostar) 30 units SUBCUT DAILY [facility] Last Admin: 04/13/19 10:13 Dose: 30 units Insulin Human Lispro (Humalog) 0 unit SUBCUT QIDACANDBED [facility]; Protocol Last Admin: 04/13/19 08:17 Dose: 6 units Losartan Potassium (Cozaar) 100 mg PO DAILY [facility] Last Admin: 04/13/19 10:12 Dose: 100 mg Metformin HCl (Glucophage) 1,000 mg PO BIDMEALS [facility] Last Admin: 04/13/19 08:18 Dose: 1,000 mg Ondansetron HCl (Zofran Odt) 4 mg PO Q6H PRN PRN Reason: Nausea able to take PO Last Admin: 04/11/19 10:36 Dose: 4 mg Oxybutynin Chloride (Oxybutynin) 2.5 mg PO BID [facility] Last Admin: 04/13/19 10:14 Dose: 2.5 mg Pregabalin (Lyrica) 50 mg PO BID [facility] Last Admin: 04/13/19 10:15 Dose: 50 mg Discontinued Medications Sodium Chloride (Normal Saline) 1,000 mls @ 999 mls/hr IV .BOLUS STA Stop: 04/10/19 00:21 Last Admin: 04/10/19 00:22 Dose: 999 mls/hr Vancomycin HCl 1 gm/ Sodium (Chloride) 250 mls @ 150 mls/hr IV ONETIME ONE Stop: 04/10/19 01:04 Last Admin: 04/10/19 00:42 Dose: 150 mls/hr Levofloxacin/Dextrose 750 mg/ (Premix) 150 mls @ 100 mls/hr IV Q48H [facility] Last Admin: 04/12/19 00:21 Dose: 100 mls/hr Ceftriaxone Sodium 1 gm/ (Sodium Chloride) 50 mls @ 100 mls/hr IV Q24H [facility] Last Admin: 04/12/19 11:50 Dose: 100 mls/hr Insulin Glargine (Lantus Solostar) 10 units SUBCUT BEDTIME [facility] Last Admin: 04/11/19 21:55 Dose: 10 units Insulin Human Regular (Humulin R) 3 unit SUBCUT WITHMEALSANDBED [facility] Last Admin: 04/10/19 08:46 Dose: Not Given Methylprednisolone Sodium Succinate (Solu-Medrol) 125 mg IVPUSH ONETIME ONE Stop: 04/11/19 11:46 Last Admin: 04/11/19 12:12 Dose: 125 mg Methylprednisolone Sodium Succinate (Solu-Medrol) 62.5 mg IVPUSH Q8H [facility] Last Admin: 04/13/19 03:30 Dose: 62.5 mg - Exam Quality Assessment: Supplemental Oxygen General: Alert, Oriented, Cooperative, No Acute Distress Lungs: Normal Respiratory Effort, Crackles (diffuse anteriorly and inferior posteriorly ). No: Wheezing Cardiovascular: Regular Rate, Regular Rhythm GI/Abdominal Exam: Soft, No Distention Extremities: No Pedal Edema. No: Increased Warmth Skin: Warm, Dry Psy/Mental Status: Alert, Normal Affect Sepsis Event Note - Evaluation Sepsis Screening Result: No Definite Risk - Focused Exam Vital Signs: Vital Signs Temp Pulse Resp BP BP Pulse Ox 04/13/19 10:12 169/51 H 04/13/19 07:42 86 L 04/13/19 07:00 36.5 C 20 150/57 H 89 L 04/13/19 02:52 36.4 C 93 18 145/61 H 89 L 04/13/19 02:25 90 L Date Exam was Performed: 04/13/19 Time Exam was Performed: 13:35 - Problem List Review Problem List Initiated/Reviewed/Updated: Yes - My Orders Last 24 Hours: My Active Orders 04/12/19 21:00 Insulin Glarg,Human.Rec.Analog [LantUS Solostar] 30 units SUBCUT BEDTIME 04/13/19 09:00 Insulin Glarg,Human.Rec.Analog [LantUS Solostar] 30 units SUBCUT DAILY 04/13/19 10:30 cefTAZidime Pentahydrate [Fortaz] 1 gm Sodium Chloride 0.9% [Normal Saline] 50 ml IV Q8H 04/13/19 10:56 methylPREDNISolone Sod Succ [Solu-MEDROL] 40 mg IVPUSH Q8H 04/13/19 11:00 Doxycycline [Vibramycin] 100 mg Sodium Chloride 0.9% [Normal Saline] 100 ml IV Q12H 04/13/19 14:00 Dextromethorphan/guaiFENesin [Robitussin DM] 10 ml PO TID 04/14/19 05:00 BASIC METABOLIC PANEL,BMP [CHEM] Timed CBC W/O DIFF,HEMOGRAM [HEME] Timed (1) - Plan Plan:: ASSESSMENT AND PLAN - Acute cystitis without hematuria-complicated by sepsis which has resolved. Culture grew out pansensitive E. coli. -Antibiotic coverage as below -Follow-up urine culture Aspiration pneumonitis-second episode of aspiration 2 nights ago with increasing oxygen requirements. Clinically she is looking and feeling ok but is needing more O2 today. No fevers. CXR worse today. -Antibiotic coverage with doxycycline and ceftazidime -Continue Solu-Medrol -Supplement oxygen as needed -Pulmonary toilet with inspiratory spirometer -Nebulizers as needed Insulin-dependent diabetes mellitus-blood sugars rising with administration of IV steroid. 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 -Continue medical management Maintenance issues - - DVT prophylaxis -SCDs - GI prophylaxis -PPI - Nutrition -diabetic - Garcia catheter -not indicated Disposition - I anticipate discharge back to the longterm after the hospital stay Stanley Nobles M.D.
[2019-04-13] MEDS: methylPREDNISolone Sodium Succinate 40 MG/1 ML SDV IVPUSH SCH ×2 (12:16→19:18)
[2019-04-13] MEDS: Doxycycline 100 MG in Sodium Chloride 0.9% 100 ML IV SCH ×2 (12:16→22:58)
[2019-04-13] MEDS: cefTRIAXone 1 GM in Sodium Chloride 0.9% 50 ML IV SCH (12:31)
[2019-04-13] MEDS: guaiFENesin/Dextromethorphan 100-10 MG/5 ML Soln 10 ML Cup PO SCH ×2 (13:39→21:05)
[2019-04-13] MEDS: Ondansetron 4 MG Tab.DIS PO PRN (17:48)
[2019-04-13] MEDS: Promethazine 12.5 MG in Sodium Chloride 0.9% 50 ML IV PRN (21:33)
[2019-04-14] MEDS: methylPREDNISolone Sodium Succinate 40 MG/1 ML SDV IVPUSH SCH ×3 (04:04→20:13)
[2019-04-14] MEDS: Albuterol/Ipratropium 3.0-0.5 MG/3 ML Neb Soln NEB SCH ×4 (07:16→20:18)
[2019-04-14] MEDS: Insulin Lispro 100 Unit/ML 3 ML KwikPen SUBCUT SCH ×4 (07:38→20:58)
[2019-04-14] MEDS: metFORMIN 500 MG Tab PO SCH ×2 (07:39→17:22)
[2019-04-14] MEDS: Insulin Glargine,Human Rec. Analog 100 Units/ML 3 ML Pen SUBCUT SCH ×2 (09:13→20:59)
[2019-04-14] MEDS: amLODIPine 5 MG Tab PO SCH (09:14)
[2019-04-14] MEDS: Losartan 50 MG Tab PO SCH (09:14)
[2019-04-14] MEDS: Oxybutynin 5 MG Tab PO SCH ×2 (09:14→20:17)
[2019-04-14] MEDS: DULoxetine 30 MG Cap PO SCH (09:14)
[2019-04-14] MEDS: Aspirin 325 MG Tab.EC PO SCH (09:14)
[2019-04-14] MEDS: Pregabalin 50 MG Cap PO SCH ×2 (09:15→20:17)
[2019-04-14] MEDS: guaiFENesin/Dextromethorphan 100-10 MG/5 ML Soln 10 ML Cup PO SCH ×3 (09:15→20:18)
--- NOTE | 2019-04-14 10:27 | PCM.PN ---
- General Info Date of Service: 04/14/19 Subjective Update: No acute events overnight though the patient did have another episode of emesis which was small. She has not had any fevers. She is still requiring supplemental oxygen but is now down to 4 to 4-1/2 L. She feels mildly short of breath. She does have a loose but nonproductive cough. No complaints of abdominal pain. Blood sugar control has been acceptable. Kidney function is stable. She is sleepy today but otherwise feels okay. Functional Status: Reports: Pain Controlled, Tolerating Diet - Review of Systems General: Denies: Fever Pulmonary: Reports: Shortness of Breath (mild), Cough - Patient Data Vitals - Most Recent: Last Vital Signs Temp 37.1 C 04/14/19 06:00 Pulse 98 04/14/19 07:17 Resp 18 04/14/19 06:00 BP 166/86 H 04/14/19 09:14 Pulse Ox 94 L 04/14/19 07:22 Weight - Most Recent: 100.244 kg I&O - Last 24 Hours: Intake & Output 04/13/19 04/14/19 04/14/19 22:59 06:59 14:59 Intake Total 750 50 120 Output Total 200 50 Balance 550 0 120 Lab Results Last 24 Hours: Laboratory Results - last 24 hr 04/14/19 04/14/19 Range/Units 04:40 04:40 WBC 12.6 H (4.5-11.0) K/uL RBC 3.70 (3.30-5.50) M/uL Hgb 9.8 L (12.0-15.0) g/dL Hct 33.2 L (36.0-48.0) % MCV 90 (80-98) fL MCH 27 (27-31) pg MCHC 30 L (32-36) % Plt Count 438 H (150-400) K/uL Sodium 145 (140-148) mmol/L Potassium 4.2 (3.6-5.2) mmol/L Chloride 105 (100-108) mmol/L Carbon Dioxide 31 (21-32) mmol/L Anion Gap 9.3 (5.0-14.0) mmol/L BUN 38 H (7-18) mg/dL Creatinine 1.0 (0.6-1.0) mg/dL Est Cr Clr Drug Dosing 39.17 mL/min Estimated GFR (MDRD) 53 L (>60) Glucose 196 H (74-106) mg/dL Calcium 8.6 (8.5-10.1) mg/dL Cornelio Results Last 24 Hours: Microbiology 04/09/19 22:25 Aerobic Blood Culture - Preliminary Blood NO GROWTH AFTER 4 DAYS Anaerobic Blood Culture - Preliminary NO GROWTH AFTER 4 DAYS Med Orders - Current: Current Medications Acetaminophen (Tylenol) 650 mg PO Q4H PRN PRN Reason: Pain/Fever Last Admin: 04/11/19 15:59 Dose: 650 mg Albuterol (Proventil Neb Soln) 2.5 mg NEB Q4H PRN PRN Reason: Shortness Of Breath/wheezing Last Admin: 04/13/19 04:26 Dose: 2.5 mg Albuterol/Ipratropium (Duoneb 3.0-0.5 Mg/3 Ml) 3 ml NEB QIDRT [facility] Last Admin: 04/14/19 07:16 Dose: 3 ml Amlodipine Besylate (Norvasc) 5 mg PO DAILY [facility] Last Admin: 04/14/19 09:14 Dose: 5 mg Aspirin (Ecotrin) 325 mg PO DAILY [facility] Last Admin: 04/14/19 09:14 Dose: 325 mg Duloxetine HCl (Cymbalta) 60 mg PO DAILY [facility] Last Admin: 04/14/19 09:14 Dose: 60 mg Guaifenesin/Dextromethorphan (Robitussin Dm) 10 ml PO TID [facility] Last Admin: 04/14/19 09:15 Dose: 10 ml Promethazine HCl 12.5 mg/ (Sodium Chloride) 50.5 mls @ 200 mls/hr IV Q6H PRN PRN Reason: Nausea/Vomiting Last Admin: 04/13/19 21:33 Dose: 200 mls/hr Ceftazidime 1 gm/ Sodium (Chloride) 50 mls @ 100 mls/hr IV Q8H [facility] Last Admin: 04/14/19 09:55 Dose: 100 mls/hr Doxycycline Hyclate 100 mg/ (Sodium Chloride) 100 mls @ 100 mls/hr IV Q12H [facility] Last Admin: 04/13/19 22:58 Dose: 100 mls/hr Insulin Glargine (Lantus Solostar) 30 units SUBCUT BEDTIME [facility] Last Admin: 04/13/19 21:03 Dose: 30 units Insulin Glargine (Lantus Solostar) 30 units SUBCUT DAILY [facility] Last Admin: 04/14/19 09:13 Dose: 30 units Insulin Human Lispro (Humalog) 0 unit SUBCUT QIDACANDBED [facility]; Protocol Last Admin: 04/14/19 07:38 Dose: 2 units Losartan Potassium (Cozaar) 100 mg PO DAILY [facility] Last Admin: 04/14/19 09:14 Dose: 100 mg Metformin HCl (Glucophage) 1,000 mg PO BIDMEALS [facility] Last Admin: 04/14/19 07:39 Dose: 1,000 mg Methylprednisolone Sodium Succinate (Solu-Medrol) 40 mg IVPUSH Q8H [facility] Last Admin: 04/14/19 04:04 Dose: 40 mg Ondansetron HCl (Zofran Odt) 4 mg PO Q6H PRN PRN Reason: Nausea able to take PO Last Admin: 04/13/19 17:48 Dose: 4 mg Oxybutynin Chloride (Oxybutynin) 2.5 mg PO BID [facility] Last Admin: 04/14/19 09:14 Dose: 2.5 mg Pregabalin (Lyrica) 50 mg PO BID [facility] Last Admin: 04/14/19 09:15 Dose: 50 mg Discontinued Medications Sodium Chloride (Normal Saline) 1,000 mls @ 999 mls/hr IV .BOLUS STA Stop: 04/10/19 00:21 Last Admin: 04/10/19 00:22 Dose: 999 mls/hr Vancomycin HCl 1 gm/ Sodium (Chloride) 250 mls @ 150 mls/hr IV ONETIME ONE Stop: 04/10/19 01:04 Last Admin: 04/10/19 00:42 Dose: 150 mls/hr Levofloxacin/Dextrose 750 mg/ (Premix) 150 mls @ 100 mls/hr IV Q48H [facility] Last Admin: 04/12/19 00:21 Dose: 100 mls/hr Ceftriaxone Sodium 1 gm/ (Sodium Chloride) 50 mls @ 100 mls/hr IV Q24H [facility] Last Admin: 04/13/19 12:31 Dose: Not Given Insulin Glargine (Lantus Solostar) 10 units SUBCUT BEDTIME [facility] Last Admin: 04/11/19 21:55 Dose: 10 units Insulin Human Regular (Humulin R) 3 unit SUBCUT WITHMEALSANDBED [facility] Last Admin: 04/10/19 08:46 Dose: Not Given Methylprednisolone Sodium Succinate (Solu-Medrol) 125 mg IVPUSH ONETIME ONE Stop: 04/11/19 11:46 Last Admin: 04/11/19 12:12 Dose: 125 mg Methylprednisolone Sodium Succinate (Solu-Medrol) 62.5 mg IVPUSH Q8H [facility] Last Admin: 04/13/19 03:30 Dose: 62.5 mg - Exam Quality Assessment: Supplemental Oxygen General: Alert, Oriented, Cooperative, No Acute Distress Lungs: Normal Respiratory Effort, Decreased Breath Sounds (both bases and mid lung areas), Crackles (bilateral lower 1/2 lungs ) Cardiovascular: Regular Rate, Regular Rhythm GI/Abdominal Exam: Soft, No Distention Extremities: No Pedal Edema. No: Increased Warmth Skin: Warm, Dry Psy/Mental Status: Alert, Normal Affect Sepsis Event Note - Evaluation Sepsis Screening Result: Sepsis Risk - Focused Exam Vital Signs: Vital Signs Temp Pulse Resp BP BP BP Pulse Ox 04/14/19 09:14 166/86 H 04/14/19 07:22 94 L 04/14/19 07:17 98 04/14/19 06:00 37.1 C 98 18 166/86 H 91 L 04/14/19 02:48 37.2 C 100 20 128/81 90 L 04/14/19 00:53 85 L 04/13/19 22:51 36.4 C 104 H 24 H 152/60 H 88 L Date Exam was Performed: 04/14/19 Time Exam was Performed: 12:21 - Problem List Review Problem List Initiated/Reviewed/Updated: Yes - My Orders Last 24 Hours: My Active Orders 04/13/19 10:30 cefTAZidime Pentahydrate [Fortaz] 1 gm Sodium Chloride 0.9% [Normal Saline] 50 ml IV Q8H 04/13/19 11:00 Doxycycline [Vibramycin] 100 mg Sodium Chloride 0.9% [Normal Saline] 100 ml IV Q12H 04/13/19 12:00 methylPREDNISolone Sod Succ [Solu-MEDROL] 40 mg IVPUSH Q8H 04/13/19 14:00 Dextromethorphan/guaiFENesin [Robitussin DM] 10 ml PO TID 04/15/19 05:00 BASIC METABOLIC PANEL,BMP [CHEM] Timed CBC W/O DIFF,HEMOGRAM [HEME] Timed (1) - Plan Plan:: ASSESSMENT AND PLAN - Acute cystitis without hematuria-complicated by sepsis which has resolved. Culture grew out pansensitive E. coli. -Antibiotic coverage as below -Follow-up urine culture Aspiration pneumonitis-2 and possibly 3 episodes of aspiration prior to and during the hospital stay. Clinically she is looking and feeling ok and supplemental oxygen requirement is finally decreasing. She did have a speech pathology evaluation and did well with this. Tolerating antibiotic change and steroids so far. -Antibiotic coverage with doxycycline and ceftazidime -Continue Solu-Medrol -Supplement oxygen as needed -Pulmonary toilet with Acapella -Nebulizers as needed Insulin-dependent diabetes mellitus-blood sugars acceptable at this time. 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 -Continue medical management Maintenance issues - - DVT prophylaxis -SCDs - GI prophylaxis -PPI - Nutrition -diabetic - Garcia catheter -not indicated Disposition - [facility] the hospital stay Stanley Nobles M.D.
[2019-04-14] MEDS: Doxycycline 100 MG in Sodium Chloride 0.9% 100 ML IV SCH ×2 (12:43→22:25)
[2019-04-15] MEDS: methylPREDNISolone Sodium Succinate 40 MG/1 ML SDV IVPUSH SCH ×3 (05:06→21:03)
[2019-04-15] MEDS: Albuterol/Ipratropium 3.0-0.5 MG/3 ML Neb Soln NEB SCH ×5 (07:01→21:06)
[2019-04-15] MEDS: Ondansetron 4 MG Tab.DIS PO PRN (07:59)
[2019-04-15] MEDS: Losartan 50 MG Tab PO SCH (09:16)
[2019-04-15] MEDS: Insulin Lispro 100 Unit/ML 3 ML KwikPen SUBCUT SCH ×4 (09:16→21:12)
[2019-04-15] MEDS: metFORMIN 500 MG Tab PO SCH ×2 (09:17→18:20)
[2019-04-15] MEDS: amLODIPine 5 MG Tab PO SCH (09:18)
[2019-04-15] MEDS: DULoxetine 30 MG Cap PO SCH (09:18)
[2019-04-15] MEDS: Aspirin 325 MG Tab.EC PO SCH (09:18)
[2019-04-15] MEDS: Insulin Glargine,Human Rec. Analog 100 Units/ML 3 ML Pen SUBCUT SCH ×2 (09:19→21:14)
[2019-04-15] MEDS: Pregabalin 50 MG Cap PO SCH ×2 (09:26→21:07)
[2019-04-15] MEDS: guaiFENesin/Dextromethorphan 100-10 MG/5 ML Soln 10 ML Cup PO SCH ×3 (09:26→21:07)
[2019-04-15] MEDS: Oxybutynin 5 MG Tab PO SCH ×2 (09:36→21:08)
[2019-04-15] MEDS ORDERED: Acetylcysteine 20% 200 MG/ML 4 ML Nebulizer Soln SDV NEB SCH (10:00)
--- NOTE | 2019-04-15 10:02 | PCM.PN ---
- General Info Date of Service: 04/15/19 Subjective Update: No acute events overnight but patient is requiring more supplemental oxygen again today. She is currently needing 8 L by simple mask. She looks well and says that she feels okay other than some shortness of breath. She does have a loose cough but has difficulty producing sputum. She has not had any fevers. Appetite has been good. She said that she slept well last night. CT scan of the chest was obtained this morning and showed bilateral infiltrates with the most prominent in the right upper lobe. These were concerning for pneumonia. She also had some small bilateral effusions. Functional Status: Reports: Pain Controlled, Tolerating Diet - Review of Systems General: Reports: Weakness Pulmonary: Reports: Shortness of Breath Cardiovascular: Reports: Chest Pain (with coughing ) - Patient Data Vitals - Most Recent: Last Vital Signs Temp 36.6 C 04/15/19 08:38 Pulse 98 04/15/19 08:38 Resp 18 04/15/19 08:38 BP 150/61 H 04/15/19 09:18 Pulse Ox 91 L 04/15/19 08:38 Weight - Most Recent: 100.244 kg I&O - Last 24 Hours: Intake & Output 04/14/19 04/15/19 04/15/19 22:59 06:59 14:59 Intake Total 250 50 Balance 250 50 Lab Results Last 24 Hours: Laboratory Results - last 24 hr 04/15/19 04/15/19 Range/Units 04:20 04:20 WBC 11.6 H (4.5-11.0) K/uL RBC 3.78 (3.30-5.50) M/uL Hgb 9.7 L (12.0-15.0) g/dL Hct 34.1 L (36.0-48.0) % MCV 90 (80-98) fL MCH 26 L (27-31) pg MCHC 28 L (32-36) % Plt Count 443 H (150-400) K/uL Sodium 145 (140-148) mmol/L Potassium 4.6 (3.6-5.2) mmol/L Chloride 107 (100-108) mmol/L Carbon Dioxide 31 (21-32) mmol/L Anion Gap 7.5 (5.0-14.0) mmol/L BUN 37 H (7-18) mg/dL Creatinine 0.9 (0.6-1.0) mg/dL Est Cr Clr Drug Dosing 43.52 mL/min Estimated GFR (MDRD) 59 L (>60) Glucose 133 H (74-106) mg/dL Calcium 8.7 (8.5-10.1) mg/dL Cornelio Results Last 24 Hours: Microbiology 04/09/19 22:25 Aerobic Blood Culture - Final Blood NO GROWTH AFTER 5 DAYS Anaerobic Blood Culture - Final NO GROWTH AFTER 5 DAYS Med Orders - Current: Current Medications Acetaminophen (Tylenol) 650 mg PO Q4H PRN PRN Reason: Pain/Fever Last Admin: 04/11/19 15:59 Dose: 650 mg Acetylcysteine (Mucomyst 20%) 200 mg NEB TIDRT [facility] Albuterol (Proventil Neb Soln) 2.5 mg NEB Q4H PRN PRN Reason: Shortness Of Breath/wheezing Last Admin: 04/13/19 04:26 Dose: 2.5 mg Albuterol/Ipratropium (Duoneb 3.0-0.5 Mg/3 Ml) 3 ml NEB QIDRT [facility] Last Admin: 04/15/19 08:43 Dose: 3 ml Amlodipine Besylate (Norvasc) 5 mg PO DAILY [facility] Last Admin: 04/15/19 09:18 Dose: 5 mg Aspirin (Ecotrin) 325 mg PO DAILY [facility] Last Admin: 04/15/19 09:18 Dose: 325 mg Duloxetine HCl (Cymbalta) 60 mg PO DAILY [facility] Last Admin: 04/15/19 09:18 Dose: 60 mg Guaifenesin/Dextromethorphan (Robitussin Dm) 10 ml PO TID [facility] Last Admin: 04/15/19 09:26 Dose: 10 ml Promethazine HCl 12.5 mg/ (Sodium Chloride) 50.5 mls @ 200 mls/hr IV Q6H PRN PRN Reason: Nausea/Vomiting Last Admin: 04/13/19 21:33 Dose: 200 mls/hr Ceftazidime 1 gm/ Sodium (Chloride) 50 mls @ 100 mls/hr IV Q8H [facility] Last Admin: 04/15/19 01:40 Dose: 100 mls/hr Doxycycline Hyclate 100 mg/ (Sodium Chloride) 100 mls @ 100 mls/hr IV Q12H [facility] Last Admin: 04/14/19 22:25 Dose: 100 mls/hr Insulin Glargine (Lantus Solostar) 30 units SUBCUT BEDTIME [facility] Last Admin: 04/14/19 20:59 Dose: 30 units Insulin Glargine (Lantus Solostar) 30 units SUBCUT DAILY [facility] Last Admin: 04/15/19 09:19 Dose: 30 units Insulin Human Lispro (Humalog) 0 unit SUBCUT QIDACANDBED [facility]; Protocol Last Admin: 04/15/19 09:16 Dose: 2 units Losartan Potassium (Cozaar) 100 mg PO DAILY [facility] Last Admin: 04/15/19 09:16 Dose: 100 mg Metformin HCl (Glucophage) 1,000 mg PO BIDMEALS [facility] Last Admin: 04/15/19 09:17 Dose: 1,000 mg Methylprednisolone Sodium Succinate (Solu-Medrol) 40 mg IVPUSH Q8H [facility] Last Admin: 04/15/19 05:06 Dose: 40 mg Ondansetron HCl (Zofran Odt) 4 mg PO Q6H PRN PRN Reason: Nausea able to take PO Last Admin: 04/15/19 07:59 Dose: 4 mg Oxybutynin Chloride (Oxybutynin) 2.5 mg PO BID [facility] Last Admin: 04/15/19 09:36 Dose: 2.5 mg Pregabalin (Lyrica) 50 mg PO BID [facility] Last Admin: 04/15/19 09:26 Dose: 50 mg Discontinued Medications Sodium Chloride (Normal Saline) 1,000 mls @ 999 mls/hr IV .BOLUS STA Stop: 04/10/19 00:21 Last Admin: 04/10/19 00:22 Dose: 999 mls/hr Vancomycin HCl 1 gm/ Sodium (Chloride) 250 mls @ 150 mls/hr IV ONETIME ONE Stop: 04/10/19 01:04 Last Admin: 04/10/19 00:42 Dose: 150 mls/hr Levofloxacin/Dextrose 750 mg/ (Premix) 150 mls @ 100 mls/hr IV Q48H [facility] Last Admin: 04/12/19 00:21 Dose: 100 mls/hr Ceftriaxone Sodium 1 gm/ (Sodium Chloride) 50 mls @ 100 mls/hr IV Q24H [facility] Last Admin: 04/13/19 12:31 Dose: Not Given Insulin Glargine (Lantus Solostar) 10 units SUBCUT BEDTIME [facility] Last Admin: 04/11/19 21:55 Dose: 10 units Insulin Human Regular (Humulin R) 3 unit SUBCUT WITHMEALSANDBED [facility] Last Admin: 04/10/19 08:46 Dose: Not Given Methylprednisolone Sodium Succinate (Solu-Medrol) 125 mg IVPUSH ONETIME ONE Stop: 04/11/19 11:46 Last Admin: 04/11/19 12:12 Dose: 125 mg Methylprednisolone Sodium Succinate (Solu-Medrol) 62.5 mg IVPUSH Q8H [facility] Last Admin: 04/13/19 03:30 Dose: 62.5 mg - Exam Quality Assessment: Supplemental Oxygen General: Alert, Oriented, Cooperative, No Acute Distress Lungs: Normal Respiratory Effort, Decreased Breath Sounds (both bases L>R), Crackles (both bases L>R) Cardiovascular: Regular Rate, Regular Rhythm GI/Abdominal Exam: Soft, No Distention Extremities: No Pedal Edema. No: Increased Warmth Skin: Warm, Dry Psy/Mental Status: Alert, Normal Affect Sepsis Event Note - Evaluation Sepsis Screening Result: Sepsis Risk - Focused Exam Vital Signs: Vital Signs Temp Pulse Resp BP BP BP Pulse Ox 04/15/19 09:18 150/61 H 04/15/19 09:16 150/61 H 04/15/19 08:38 36.6 C 98 18 150/61 H 91 L 04/15/19 07:46 89 L 04/15/19 02:22 36.6 C 91 18 127/61 90 L 04/15/19 00:48 90 L 04/14/19 23:10 95 89 L Date Exam was Performed: 04/15/19 Time Exam was Performed: 12:43 - Problem List Review Problem List Initiated/Reviewed/Updated: Yes - My Orders Last 24 Hours: My Active Orders 04/15/19 09:59 Chest w Cont [CT] Routine 04/15/19 10:00 RT Aerosol Therapy [RC] ASDIRECTED Acetylcysteine [Mucomyst 20%] 200 mg NEB TIDRT 04/16/19 05:00 BASIC METABOLIC PANEL,BMP [CHEM] Timed CBC W/O DIFF,HEMOGRAM [HEME] Timed (1) - Plan Plan:: ASSESSMENT AND PLAN - Aspiration pneumonitis-complicated by acute respiratory failure with hypoxia. Episode of aspiration prior to admission and possibly 2 more while hospitalized. Supplemental oxygen requirements have increased again, probably secondary to her aspiration 2 days ago. Cultures have been negative. She is not having fevers. CT scan suggested persistent infiltrates concerning for pneumonia. Had been doing better after antibiotic change a couple of days ago. -Antibiotic coverage with doxycycline and ceftazidime -Continue Solu-Medrol -Mucomyst nebs -Dose of furosemide -Supplement oxygen as needed -Pulmonary toilet with Acapella -Nebulizers as needed Acute cystitis without hematuria-complicated by sepsis which has resolved. Culture grew out pansensitive E. coli. -Antibiotic coverage as above -Follow-up urine culture Insulin-dependent diabetes mellitus-blood sugars acceptable at this time. 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 -Continue medical management Maintenance issues - - DVT prophylaxis -SCDs - GI prophylaxis -PPI - Nutrition -diabetic - Garcia catheter -not indicated Disposition - [facility] Stanley Nobles M.D.
[2019-04-15] MEDS ORDERED: Iopamidol 612 MG/ML 100 ML Bottle IV PRN (10:12)
[2019-04-15] MEDS ORDERED: Sodium Chloride 0.9% 10 ML Syringe FLUSH SCH (10:15)
--- NOTE | 2019-04-15 12:20 | CRLCT ---
INDICATIONS: Persistent pneumonia, severe hypoxia. TECHNIQUE: CT chest without contrast. COMPARISON: Chest radiograph 04/09/2019. FINDINGS: Small bilateral pleural effusions, left greater than right. No pericardial effusion. Borderline superior mediastinal nodes. Aortic atherosclerosis. Thoracic aorta is normal in caliber. Dilatation of the main pulmonary artery to 3.3 cm. Cardiomegaly and mild to moderate coronary artery calcifications. Soft tissues of the thoracic wall are unremarkable. No pneumothorax. Central airways are patent. Bilateral dense, nodular and ground-glass opacities are present throughout both lungs, most pronounced in the right upper lobe. Bibasilar atelectasis, left greater than right. Visualized unenhanced upper abdomen is unremarkable. Bone windows demonstrate demineralization and degenerative changes of the spine. No acute or suspicious osseous abnormality. IMPRESSION: 1. Bilateral airspace disease most pronounced in the right upper lobe, worrisome for pneumonia. 2. Small bilateral pleural effusions with bilateral lower lobe atelectasis, left greater than right. 3. Cardiomegaly and mild to moderate coronary artery calcifications. Dictated by Ervin Grimes MD @ 04/15/2019 12:18:58 PM Dictated by: Ervin Grimes MD @ 04/15/2019 12:19:12 (Electronically Signed)
[2019-04-15] MEDS ORDERED: Furosemide 20 MG/2 ML VIAL IVPUSH ONE (13:00)
[2019-04-15] MEDS: Doxycycline 100 MG in Sodium Chloride 0.9% 100 ML IV SCH ×2 (13:32→23:19)
[2019-04-15] MEDS: Acetylcysteine 20% 200 MG/ML 4 ML Nebulizer Soln SDV NEB SCH ×2 (14:14→21:00)
[2019-04-16] MEDS: methylPREDNISolone Sodium Succinate 40 MG/1 ML SDV IVPUSH SCH ×3 (04:15→21:02)
[2019-04-16] MEDS: Albuterol/Ipratropium 3.0-0.5 MG/3 ML Neb Soln NEB SCH ×4 (07:01→21:03)
[2019-04-16] MEDS: Acetylcysteine 20% 200 MG/ML 4 ML Nebulizer Soln SDV NEB SCH ×3 (07:01→21:25)
[2019-04-16] MEDS: Insulin Lispro 100 Unit/ML 3 ML KwikPen SUBCUT SCH ×4 (08:36→21:10)
[2019-04-16] MEDS: metFORMIN 500 MG Tab PO SCH ×2 (08:40→16:19)
[2019-04-16] MEDS: Aspirin 325 MG Tab.EC PO SCH (08:41)
[2019-04-16] MEDS: Losartan 50 MG Tab PO SCH (08:41)
[2019-04-16] MEDS: DULoxetine 30 MG Cap PO SCH (08:41)
[2019-04-16] MEDS: Oxybutynin 5 MG Tab PO SCH ×2 (08:43→21:04)
[2019-04-16] MEDS: guaiFENesin/Dextromethorphan 100-10 MG/5 ML Soln 10 ML Cup PO SCH ×3 (08:43→21:05)
[2019-04-16] MEDS: amLODIPine 5 MG Tab PO SCH (08:43)
[2019-04-16] MEDS: Pregabalin 50 MG Cap PO SCH ×2 (08:48→21:07)
[2019-04-16] MEDS: Doxycycline 100 MG in Sodium Chloride 0.9% 100 ML IV SCH (11:24)
[2019-04-16] MEDS: Insulin Glargine,Human Rec. Analog 100 Units/ML 3 ML Pen SUBCUT SCH ×2 (11:33→21:33)
--- NOTE | 2019-04-16 15:40 | PCM.PN ---
- General Info Date of Service: 04/16/19 Subjective Update: Ms. Flores has been stable since yesterday, further improvement in shortness of breath, continues to require relatively high level of supplemental oxygen. Vital signs have been good and she has remained afebrile. Functional Status: Reports: Tolerating Diet, Urinating - Review of Systems General: Reports: Weakness. Denies: Fever, Chills Pulmonary: Reports: Shortness of Breath, Cough. Denies: Pleuritic Chest Pain, Sputum, Hemoptysis, Wheezing Cardiovascular: Reports: Dyspnea on Exertion. Denies: Chest Pain, Palpitations , Orthopnea, PND, Edema, Lightheadedness Gastrointestinal: Reports: No Symptoms - Patient Data Vitals - Most Recent: Last Vital Signs Temp 97.5 F 04/16/19 11:00 Pulse 88 04/16/19 14:43 Resp 18 04/16/19 11:00 BP 134/71 04/16/19 11:00 Pulse Ox 97 04/16/19 13:26 Weight - Most Recent: 221 lb 0.003 oz I&O - Last 24 Hours: Intake & Output 04/16/19 04/16/19 04/16/19 06:59 14:59 22:59 Intake Total 350 690 Output Total 31 Balance 350 659 Lab Results Last 24 Hours: Laboratory Results - last 24 hr 04/16/19 04/16/19 Range/Units 05:00 05:00 WBC 12.7 H (4.5-11.0) K/uL RBC 3.88 (3.30-5.50) M/uL Hgb 10.0 L (12.0-15.0) g/dL Hct 34.7 L (36.0-48.0) % MCV 89 (80-98) fL MCH 26 L (27-31) pg MCHC 29 L (32-36) % Plt Count 456 H (150-400) K/uL Sodium 142 (140-148) mmol/L Potassium 4.7 (3.6-5.2) mmol/L Chloride 105 (100-108) mmol/L Carbon Dioxide 31 (21-32) mmol/L Anion Gap 6.0 (5.0-14.0) mmol/L BUN 36 H (7-18) mg/dL Creatinine 0.9 (0.6-1.0) mg/dL Est Cr Clr Drug Dosing 43.52 mL/min Estimated GFR (MDRD) 59 L (>60) Glucose 117 H (74-106) mg/dL Calcium 8.9 (8.5-10.1) mg/dL Med Orders - Current: Current Medications Acetaminophen (Tylenol) 650 mg PO Q4H PRN PRN Reason: Pain/Fever Last Admin: 04/11/19 15:59 Dose: 650 mg Acetylcysteine (Mucomyst 20%) 200 mg NEB 0700,1500,2100 [facility] Last Admin: 04/16/19 14:42 Dose: 200 mg Albuterol (Proventil Neb Soln) 2.5 mg NEB Q4H PRN PRN Reason: Shortness Of Breath/wheezing Last Admin: 04/13/19 04:26 Dose: 2.5 mg Albuterol/Ipratropium (Duoneb 3.0-0.5 Mg/3 Ml) 3 ml NEB QIDRT [facility] Last Admin: 04/16/19 14:42 Dose: 3 ml Amlodipine Besylate (Norvasc) 5 mg PO DAILY [facility] Last Admin: 04/16/19 08:43 Dose: 5 mg Aspirin (Ecotrin) 325 mg PO DAILY [facility] Last Admin: 04/16/19 08:41 Dose: 325 mg Dimethicone/Zinc Oxide (Rash Relief-Zinc Oxide [place]) 0 gm TOP ASDIRECTED PRN PRN Reason: Rash Duloxetine HCl (Cymbalta) 60 mg PO DAILY [facility] Last Admin: 04/16/19 08:41 Dose: 60 mg Guaifenesin/Dextromethorphan (Robitussin Dm) 10 ml PO TID [facility] Last Admin: 04/16/19 08:43 Dose: 10 ml Promethazine HCl 12.5 mg/ (Sodium Chloride) 50.5 mls @ 200 mls/hr IV Q6H PRN PRN Reason: Nausea/Vomiting Last Admin: 04/13/19 21:33 Dose: 200 mls/hr Ceftazidime 1 gm/ Sodium (Chloride) 50 mls @ 100 mls/hr IV Q8H [facility] Last Admin: 04/16/19 12:06 Dose: 100 mls/hr Sodium Chloride (Normal Saline) 79 mls @ 3 mls/sec IV ASDIRECTED [facility] Last Admin: 04/15/19 11:37 Dose: 3 mls/sec Clindamycin Phosphate 600 mg/ (Sodium Chloride) 54 mls @ 100 mls/hr IV Q6H [facility] Insulin Glargine (Lantus Solostar) 30 units SUBCUT BEDTIME [facility] Last Admin: 04/15/19 21:14 Dose: 30 units Insulin Glargine (Lantus Solostar) 30 units SUBCUT DAILY [facility] Last Admin: 04/16/19 11:33 Dose: 16 units Insulin Human Lispro (Humalog) 0 unit SUBCUT QIDACANDBED [facility]; Protocol Last Admin: 04/16/19 11:36 Dose: 2 units Lactobacillus Rhamnosus (Culturelle) 1 cap PO BID [facility] Losartan Potassium (Cozaar) 100 mg PO DAILY [facility] Last Admin: 04/16/19 08:41 Dose: 100 mg Metformin HCl (Glucophage) 1,000 mg PO BIDMEALS [facility] Last Admin: 04/16/19 08:40 Dose: 1,000 mg Methylprednisolone Sodium Succinate (Solu-Medrol) 40 mg IVPUSH Q8H [facility] Last Admin: 04/16/19 11:45 Dose: 40 mg Ondansetron HCl (Zofran Odt) 4 mg PO Q6H PRN PRN Reason: Nausea able to take PO Last Admin: 04/15/19 07:59 Dose: 4 mg Oxybutynin Chloride (Oxybutynin) 2.5 mg PO BID [facility] Last Admin: 04/16/19 08:43 Dose: 2.5 mg Pregabalin (Lyrica) 50 mg PO BID [facility] Last Admin: 04/16/19 08:48 Dose: 50 mg Sodium Chloride (Saline Flush) 10 ml FLUSH ONETIME [facility] Last Admin: 04/15/19 11:40 Dose: 10 ml Discontinued Medications Acetylcysteine (Mucomyst 20%) 200 mg NEB TIDRT [facility] Last Admin: 04/15/19 10:51 Dose: 200 mg Furosemide (Lasix) 20 mg IVPUSH ONETIME ONE Stop: 04/15/19 13:01 Last Admin: 04/15/19 13:31 Dose: 20 mg Sodium Chloride (Normal Saline) 1,000 mls @ 999 mls/hr IV .BOLUS STA Stop: 04/10/19 00:21 Last Admin: 04/10/19 00:22 Dose: 999 mls/hr Vancomycin HCl 1 gm/ Sodium (Chloride) 250 mls @ 150 mls/hr IV ONETIME ONE Stop: 04/10/19 01:04 Last Admin: 04/10/19 00:42 Dose: 150 mls/hr Levofloxacin/Dextrose 750 mg/ (Premix) 150 mls @ 100 mls/hr IV Q48H [facility] Last Admin: 04/12/19 00:21 Dose: 100 mls/hr Ceftriaxone Sodium 1 gm/ (Sodium Chloride) 50 mls @ 100 mls/hr IV Q24H [facility] Last Admin: 04/13/19 12:31 Dose: Not Given Doxycycline Hyclate 100 mg/ (Sodium Chloride) 100 mls @ 100 mls/hr IV Q12H [facility] Last Admin: 04/16/19 11:24 Dose: 100 mls/hr Insulin Glargine (Lantus Solostar) 10 units SUBCUT BEDTIME [facility] Last Admin: 04/11/19 21:55 Dose: 10 units Insulin Human Regular (Humulin R) 3 unit SUBCUT WITHMEALSANDBED [facility] Last Admin: 04/10/19 08:46 Dose: Not Given Iopamidol (Isovue-300 (61%)) 100 ml IV . DIRECTED PRN PRN Reason: RADIOLOGY EXAM Stop: 04/16/19 10:13 Methylprednisolone Sodium Succinate (Solu-Medrol) 125 mg IVPUSH ONETIME ONE Stop: 04/11/19 11:46 Last Admin: 04/11/19 12:12 Dose: 125 mg Methylprednisolone Sodium Succinate (Solu-Medrol) 62.5 mg IVPUSH Q8H [facility] Last Admin: 04/13/19 03:30 Dose: 62.5 mg - Exam Quality Assessment: Supplemental Oxygen, DVT Prophylaxis General: Alert, Oriented, Cooperative, Mild Distress Lungs: Clear to Auscultation, Normal Respiratory Effort Cardiovascular: Regular Rate, Regular Rhythm, No Murmurs GI/Abdominal Exam: Soft, Non-Tender, No Organomegaly, No Distention Extremities: Non-Tender, No Pedal Edema Sepsis Event Note - Evaluation Sepsis Screening Result: No Definite Risk - Focused Exam Vital Signs: Vital Signs Temp Pulse Resp BP BP BP Pulse Ox 04/16/19 14:43 88 04/16/19 13:26 97 04/16/19 11:00 97.5 F 91 18 134/71 94 L 04/16/19 08:43 152/76 H 04/16/19 08:41 152/76 H 04/16/19 07:56 94 L 04/16/19 07:01 80 04/16/19 07:00 97.9 F 93 18 152/76 H 93 L Date Exam was Performed: 04/16/19 Time Exam was Performed: 15:40 - Problem List Review Problem List Initiated/Reviewed/Updated: Yes - My Orders Last 24 Hours: My Active Orders 04/16/19 14:51 RT Acapella [RESPCARE] Routine 04/16/19 15:45 Clindamycin Phosphate [Cleocin] 600 mg Sodium Chloride 0.9% [Normal Saline] 50 ml IV Q6H Lactobacillus Rhamnosus GG [Culturelle] 1 cap PO BID 04/17/19 05:00 BASIC METABOLIC PANEL,BMP [CHEM] Timed CBC WITH AUTO DIFF [HEME] Timed - Plan Plan:: ASSESSMENT AND PLAN - Aspiration pneumonitis-complicated by acute respiratory failure with hypoxia. Episode of aspiration prior to admission and possibly 2 more while hospitalized. Supplemental oxygen requirements stable over the last 24 hours -Antibiotic coverage with clindamycin and ceftazidime -Continue Solu-Medrol -Mucomyst nebs -Supplement oxygen as needed -Pulmonary toilet with Acapella -Nebulizers as needed Acute cystitis without hematuria-complicated by sepsis which has resolved. Culture grew out pansensitive E. coli. -Antibiotic coverage as above Insulin-dependent diabetes mellitus-blood sugars acceptable at this time. 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 -Continue medical management Maintenance issues - - DVT prophylaxis -SCDs - GI prophylaxis -PPI - Nutrition -diabetic - Garcia catheter -not indicated Disposition - I anticipate discharge back to the halfway after the hospital stay
[2019-04-16] MEDS: Lactobacillus Rhamnosus GG (Probiotic) Cap PO SCH ×2 (16:19→21:03)
[2019-04-17] MEDS: methylPREDNISolone Sodium Succinate 40 MG/1 ML SDV IVPUSH SCH (03:30)
[2019-04-17] MEDS: Albuterol/Ipratropium 3.0-0.5 MG/3 ML Neb Soln NEB SCH ×4 (06:59→21:29)
[2019-04-17] MEDS: Acetylcysteine 20% 200 MG/ML 4 ML Nebulizer Soln SDV NEB SCH ×3 (07:00→21:30)
[2019-04-17] MEDS: Insulin Lispro 100 Unit/ML 3 ML KwikPen SUBCUT SCH ×4 (08:27→21:37)
[2019-04-17] MEDS: Oxybutynin 5 MG Tab PO SCH ×2 (09:13→21:29)
[2019-04-17] MEDS: DULoxetine 30 MG Cap PO SCH (09:13)
[2019-04-17] MEDS: Losartan 50 MG Tab PO SCH (09:13)
[2019-04-17] MEDS: metFORMIN 500 MG Tab PO SCH ×2 (09:13→16:57)
[2019-04-17] MEDS: Aspirin 325 MG Tab.EC PO SCH (09:13)
[2019-04-17] MEDS: Lactobacillus Rhamnosus GG (Probiotic) Cap PO SCH ×2 (09:13→21:29)
[2019-04-17] MEDS: Pregabalin 50 MG Cap PO SCH ×2 (09:13→21:30)
[2019-04-17] MEDS: amLODIPine 5 MG Tab PO SCH (09:13)
[2019-04-17] MEDS: guaiFENesin/Dextromethorphan 100-10 MG/5 ML Soln 10 ML Cup PO SCH ×4 (09:14→21:30)
[2019-04-17] MEDS: Acetaminophen 325 MG Tab PO PRN (09:40)
[2019-04-17] MEDS: Insulin Glargine,Human Rec. Analog 100 Units/ML 3 ML Pen SUBCUT SCH ×2 (11:56→21:35)
--- NOTE | 2019-04-17 14:08 | PCM.PN ---
- General Info Date of Service: 04/17/19 Subjective Update: Ms. Flores has been stable since yesterday, no recurrent episodes of vomiting or aspiration. She feels somewhat stronger and less short of breath, appetite seems to be slowly improving. Continues to require relatively high level of supplemental oxygen. Functional Status: Reports: Tolerating Diet, Urinating - Review of Systems General: Reports: Weakness, Chills. Denies: Fever, Appetite Pulmonary: Reports: No Symptoms Cardiovascular: Reports: No Symptoms Gastrointestinal: Reports: No Symptoms - Patient Data Vitals - Most Recent: Last Vital Signs Temp 96.5 F 04/17/19 11:00 Pulse 94 04/17/19 11:00 Resp 20 04/17/19 11:00 BP 123/47 L 04/17/19 11:00 Pulse Ox 92 L 04/17/19 12:47 Weight - Most Recent: 221 lb 0.003 oz I&O - Last 24 Hours: Intake & Output 04/16/19 04/17/19 04/17/19 22:59 06:59 14:59 Intake Total 2071 450 220 Output Total 350 Balance 2071 100 220 Lab Results Last 24 Hours: Laboratory Results - last 24 hr 04/17/19 04/17/19 Range/Units 05:30 05:30 WBC 13.9 H (4.5-11.0) K/uL RBC 3.79 (3.30-5.50) M/uL Hgb 9.9 L (12.0-15.0) g/dL Hct 33.5 L (36.0-48.0) % MCV 88 (80-98) fL MCH 26 L (27-31) pg MCHC 30 L (32-36) % Plt Count 484 H (150-400) K/uL Neut % (Auto) 88 H (36-66) % Lymph % (Auto) 6 L (24-44) % [place] % (Auto) 6 (2-6) % Eos % (Auto) 0 L (2-4) % Baso % (Auto) 0 (0-1) % Sodium 140 (140-148) mmol/L Potassium 4.6 (3.6-5.2) mmol/L Chloride 105 (100-108) mmol/L Carbon Dioxide 30 (21-32) mmol/L Anion Gap 4.7 L (5.0-14.0) mmol/L BUN 32 H (7-18) mg/dL Creatinine 0.8 (0.6-1.0) mg/dL Est Cr Clr Drug Dosing 48.96 mL/min Estimated GFR (MDRD) > 60 (>60) Glucose 120 H (74-106) mg/dL Calcium 8.4 L (8.5-10.1) mg/dL Med Orders - Current: Current Medications Acetaminophen (Tylenol) 650 mg PO Q4H PRN PRN Reason: Pain/Fever Last Admin: 04/17/19 09:40 Dose: 650 mg Acetylcysteine (Mucomyst 20%) 200 mg NEB 0700,1500,2100 [facility] Last Admin: 04/17/19 07:00 Dose: 200 mg Albuterol (Proventil Neb Soln) 2.5 mg NEB Q4H PRN PRN Reason: Shortness Of Breath/wheezing Last Admin: 04/13/19 04:26 Dose: 2.5 mg Albuterol/Ipratropium (Duoneb 3.0-0.5 Mg/3 Ml) 3 ml NEB QIDRT [facility] Last Admin: 04/17/19 11:04 Dose: 3 ml Amlodipine Besylate (Norvasc) 5 mg PO DAILY [facility] Last Admin: 04/17/19 09:13 Dose: 5 mg Aspirin (Ecotrin) 325 mg PO DAILY [facility] Last Admin: 04/17/19 09:13 Dose: 325 mg Dimethicone/Zinc Oxide (Rash Relief-Zinc Oxide [place]) 0 gm TOP ASDIRECTED PRN PRN Reason: Rash Duloxetine HCl (Cymbalta) 60 mg PO DAILY [facility] Last Admin: 04/17/19 09:13 Dose: 60 mg Guaifenesin/Dextromethorphan (Robitussin Dm) 10 ml PO TID [facility] Last Admin: 04/17/19 09:49 Dose: Not Given Promethazine HCl 12.5 mg/ (Sodium Chloride) 50.5 mls @ 200 mls/hr IV Q6H PRN PRN Reason: Nausea/Vomiting Last Admin: 04/13/19 21:33 Dose: 200 mls/hr Ceftazidime 1 gm/ Sodium (Chloride) 50 mls @ 100 mls/hr IV Q8H [facility] Last Admin: 04/17/19 11:14 Dose: 100 mls/hr Clindamycin Phosphate 600 mg/ (Sodium Chloride) 54 mls @ 100 mls/hr IV Q6H [facility] Last Admin: 04/17/19 11:13 Dose: 100 mls/hr Insulin Glargine (Lantus Solostar) 20 units SUBCUT BID [facility] Last Admin: 04/17/19 11:56 Dose: 20 units Insulin Human Lispro (Humalog) 0 unit SUBCUT QIDACANDBED [facility]; Protocol Last Admin: 04/17/19 11:57 Dose: 4 units Lactobacillus Rhamnosus (Culturelle) 1 cap PO BID [facility] Last Admin: 04/17/19 09:13 Dose: 1 cap Losartan Potassium (Cozaar) 100 mg PO DAILY [facility] Last Admin: 04/17/19 09:13 Dose: 100 mg Metformin HCl (Glucophage) 1,000 mg PO BIDMEALS [facility] Last Admin: 04/17/19 09:13 Dose: 1,000 mg Ondansetron HCl (Zofran Odt) 4 mg PO Q6H PRN PRN Reason: Nausea able to take PO Last Admin: 04/15/19 07:59 Dose: 4 mg Oxybutynin Chloride (Oxybutynin) 2.5 mg PO BID [facility] Last Admin: 04/17/19 09:13 Dose: 2.5 mg Pregabalin (Lyrica) 50 mg PO BID [facility] Last Admin: 04/17/19 09:13 Dose: 50 mg Sodium Chloride (Saline Flush) 10 ml FLUSH ONETIME [facility] Last Admin: 04/15/19 11:40 Dose: 10 ml Discontinued Medications Acetylcysteine (Mucomyst 20%) 200 mg NEB TIDRT [facility] Last Admin: 04/15/19 10:51 Dose: 200 mg Furosemide (Lasix) 20 mg IVPUSH ONETIME ONE Stop: 04/15/19 13:01 Last Admin: 04/15/19 13:31 Dose: 20 mg Sodium Chloride (Normal Saline) 1,000 mls @ 999 mls/hr IV .BOLUS STA Stop: 04/10/19 00:21 Last Admin: 04/10/19 00:22 Dose: 999 mls/hr Vancomycin HCl 1 gm/ Sodium (Chloride) 250 mls @ 150 mls/hr IV ONETIME ONE Stop: 04/10/19 01:04 Last Admin: 04/10/19 00:42 Dose: 150 mls/hr Levofloxacin/Dextrose 750 mg/ (Premix) 150 mls @ 100 mls/hr IV Q48H [facility] Last Admin: 04/12/19 00:21 Dose: 100 mls/hr Ceftriaxone Sodium 1 gm/ (Sodium Chloride) 50 mls @ 100 mls/hr IV Q24H [facility] Last Admin: 04/13/19 12:31 Dose: Not Given Doxycycline Hyclate 100 mg/ (Sodium Chloride) 100 mls @ 100 mls/hr IV Q12H [facility] Last Admin: 04/16/19 11:24 Dose: 100 mls/hr Sodium Chloride (Normal Saline) 79 mls @ 3 mls/sec IV ASDIRECTED [facility] Last Admin: 04/15/19 11:37 Dose: 3 mls/sec Insulin Glargine (Lantus Solostar) 10 units SUBCUT BEDTIME [facility] Last Admin: 04/11/19 21:55 Dose: 10 units Insulin Glargine (Lantus Solostar) 30 units SUBCUT BEDTIME [facility] Last Admin: 04/16/19 21:33 Dose: Not Given Insulin Glargine (Lantus Solostar) 30 units SUBCUT DAILY [facility] Last Admin: 04/16/19 11:33 Dose: 16 units Insulin Human Regular (Humulin R) 3 unit SUBCUT WITHMEALSANDBED [facility] Last Admin: 04/10/19 08:46 Dose: Not Given Iopamidol (Isovue-300 (61%)) 100 ml IV . DIRECTED PRN PRN Reason: RADIOLOGY EXAM Stop: 04/16/19 10:13 Methylprednisolone Sodium Succinate (Solu-Medrol) 125 mg IVPUSH ONETIME ONE Stop: 04/11/19 11:46 Last Admin: 04/11/19 12:12 Dose: 125 mg Methylprednisolone Sodium Succinate (Solu-Medrol) 62.5 mg IVPUSH Q8H [facility] Last Admin: 04/13/19 03:30 Dose: 62.5 mg Methylprednisolone Sodium Succinate (Solu-Medrol) 40 mg IVPUSH Q8H [facility] Last Admin: 04/17/19 03:30 Dose: 40 mg - Exam Quality Assessment: DVT Prophylaxis General: Alert, Oriented, Cooperative, Mild Distress Lungs: Clear to Auscultation, Normal Respiratory Effort Cardiovascular: Regular Rate, Regular Rhythm, No Murmurs GI/Abdominal Exam: Soft, Non-Tender, No Organomegaly, No Distention Extremities: Non-Tender, No Pedal Edema Sepsis Event Note - Evaluation Sepsis Screening Result: Sepsis Risk - Focused Exam Vital Signs: Vital Signs Temp Pulse Resp BP BP Pulse Ox 04/17/19 12:47 92 L 04/17/19 11:00 96.5 F 94 20 123/47 L 92 L 04/17/19 09:13 150/51 H 04/17/19 08:27 95 04/17/19 07:23 95 04/17/19 07:00 95.4 F 92 20 150/51 H 95 04/17/19 02:36 91 L 04/17/19 02:31 96.7 F 76 20 161/60 H 87 L Date Exam was Performed: 04/17/19 Time Exam was Performed: 14:06 - Problem List Review Problem List Initiated/Reviewed/Updated: Yes - My Orders Last 24 Hours: My Active Orders 04/16/19 14:51 RT Acapella [RESPCARE] Routine 04/16/19 15:45 Lactobacillus Rhamnosus GG [Culturelle] 1 cap PO BID 04/16/19 16:00 Clindamycin Phosphate [Cleocin] 600 mg Sodium Chloride 0.9% [Normal Saline] 50 ml IV Q6H 04/17/19 12:00 Insulin Glarg,Human.Rec.Analog [LantUS Solostar] 20 units SUBCUT BID - Plan Plan:: ASSESSMENT AND PLAN - Aspiration pneumonitis-complicated by acute respiratory failure with hypoxia. Episode of aspiration prior to admission and possibly 2 more while hospitalized. Supplemental oxygen requirements stable over the last 24 hours -Antibiotic coverage with clindamycin and ceftazidime -Discontinue Solu-Medrol -Mucomyst nebs -Supplement oxygen as needed -Pulmonary toilet with Acapella -Nebulizers as needed Acute cystitis without hematuria-complicated by sepsis which has resolved. Culture grew out pansensitive E. coli. -Antibiotic coverage as above Insulin-dependent diabetes mellitus-blood sugars acceptable at this time. 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 -Continue medical management Maintenance issues - - DVT prophylaxis -SCDs - GI prophylaxis -PPI - Nutrition -diabetic - Garcia catheter -not indicated Disposition - I anticipate discharge back to the [facility] after the hospital stay
[2019-04-17] MEDS: Dimethicone 20%/Zinc Oxide 25% 56 GM Spray Bottle TOP PRN (19:35)
[2019-04-17] MEDS ORDERED: Insulin Glargine,Human Rec. Analog 100 Units/ML 3 ML Pen SUBCUT SCH (21:00)
[2019-04-18] MEDS: Acetylcysteine 20% 200 MG/ML 4 ML Nebulizer Soln SDV NEB SCH ×3 (07:11→20:36)
[2019-04-18] MEDS: Albuterol/Ipratropium 3.0-0.5 MG/3 ML Neb Soln NEB SCH ×4 (07:11→20:36)
[2019-04-18] MEDS: Insulin Lispro 100 Unit/ML 3 ML KwikPen SUBCUT SCH ×4 (08:10→20:38)
[2019-04-18] MEDS: Dimethicone 20%/Zinc Oxide 25% 56 GM Spray Bottle TOP PRN ×2 (08:19→21:51)
[2019-04-18] MEDS: guaiFENesin/Dextromethorphan 100-10 MG/5 ML Soln 10 ML Cup PO SCH ×3 (10:20→21:42)
[2019-04-18] MEDS: Aspirin 325 MG Tab.EC PO SCH (10:54)
[2019-04-18] MEDS: DULoxetine 30 MG Cap PO SCH (10:54)
[2019-04-18] MEDS: amLODIPine 5 MG Tab PO SCH (10:54)
[2019-04-18] MEDS: Losartan 50 MG Tab PO SCH (10:54)
[2019-04-18] MEDS: Lactobacillus Rhamnosus GG (Probiotic) Cap PO SCH ×2 (10:54→20:37)
[2019-04-18] MEDS: Pregabalin 50 MG Cap PO SCH ×2 (10:54→20:37)
[2019-04-18] MEDS: metFORMIN 500 MG Tab PO SCH ×2 (10:54→17:31)
[2019-04-18] MEDS: Oxybutynin 5 MG Tab PO SCH ×2 (10:55→20:37)
[2019-04-18] MEDS ORDERED: Loperamide 2 MG Cap PO PRN (11:52)
--- NOTE | 2019-04-18 11:54 | PCM.PN ---
- General Info Date of Service: 04/18/19 Subjective Update: Ms. Flores is experiencing loose stools this morning, otherwise she has shown improvement with increased energy level and decreased supplemental oxygen requirement. Vital signs have remained stable and she has been afebrile. Functional Status: Reports: Urinating. Denies: Tolerating Diet, Ambulating - Review of Systems General: Reports: Weakness, Fatigue. Denies: Fever, Chills Pulmonary: Reports: Shortness of Breath. Denies: Pleuritic Chest Pain, Cough, Sputum, Hemoptysis, Wheezing Cardiovascular: Reports: Dyspnea on Exertion. Denies: Chest Pain, Palpitations , Orthopnea, PND, Edema, Lightheadedness Gastrointestinal: Reports: Decreased Appetite, Diarrhea. Denies: Abdominal Pain , Constipation, Difficulty Swallowing, Nausea, Vomiting - Patient Data Vitals - Most Recent: Last Vital Signs Temp 96.7 F 04/18/19 11:21 Pulse 58 L 04/18/19 11:21 Resp 18 04/18/19 11:21 BP 151/59 H 04/18/19 11:21 Pulse Ox 97 04/18/19 11:21 Weight - Most Recent: 221 lb 0.003 oz I&O - Last 24 Hours: Intake & Output 04/17/19 04/18/19 04/18/19 22:59 06:59 14:59 Intake Total 900 104 340 Output Total 400 Balance 900 104 -60 Med Orders - Current: Current Medications Acetaminophen (Tylenol) 650 mg PO Q4H PRN PRN Reason: Pain/Fever Last Admin: 04/17/19 09:40 Dose: 650 mg Acetylcysteine (Mucomyst 20%) 200 mg NEB 0700,1500,2100 [facility] Last Admin: 04/18/19 07:11 Dose: 200 mg Albuterol (Proventil Neb Soln) 2.5 mg NEB Q4H PRN PRN Reason: Shortness Of Breath/wheezing Last Admin: 04/13/19 04:26 Dose: 2.5 mg Albuterol/Ipratropium (Duoneb 3.0-0.5 Mg/3 Ml) 3 ml NEB QIDRT [facility] Last Admin: 04/18/19 11:20 Dose: 3 ml Amlodipine Besylate (Norvasc) 5 mg PO DAILY [facility] Last Admin: 04/18/19 10:54 Dose: Not Given Aspirin (Ecotrin) 325 mg PO DAILY [facility] Last Admin: 04/18/19 10:54 Dose: Not Given Dimethicone/Zinc Oxide (Rash Relief-Zinc Oxide [place]) 0 gm TOP ASDIRECTED PRN PRN Reason: Rash Last Admin: 04/18/19 08:19 Dose: 1 applic Duloxetine HCl (Cymbalta) 60 mg PO DAILY [facility] Last Admin: 04/18/19 10:54 Dose: Not Given Guaifenesin/Dextromethorphan (Robitussin Dm) 10 ml PO TID [facility] Last Admin: 04/18/19 10:20 Dose: Not Given Promethazine HCl 12.5 mg/ (Sodium Chloride) 50.5 mls @ 200 mls/hr IV Q6H PRN PRN Reason: Nausea/Vomiting Last Admin: 04/13/19 21:33 Dose: 200 mls/hr Ceftazidime 1 gm/ Sodium (Chloride) 50 mls @ 100 mls/hr IV Q8H [facility] Last Admin: 04/18/19 11:36 Dose: 100 mls/hr Clindamycin Phosphate 600 mg/ (Sodium Chloride) 54 mls @ 100 mls/hr IV Q6H [facility] Last Admin: 04/18/19 10:16 Dose: 100 mls/hr Insulin Glargine (Lantus Solostar) 20 units SUBCUT BID [facility] Last Admin: 04/17/19 21:35 Dose: 20 units Insulin Human Lispro (Humalog) 0 unit SUBCUT QIDACANDBED [facility]; Protocol Last Admin: 04/18/19 11:36 Dose: Not Given Lactobacillus Rhamnosus (Culturelle) 1 cap PO BID [facility] Last Admin: 04/18/19 10:54 Dose: Not Given Loperamide HCl (Imodium) 2 mg PO Q4H PRN PRN Reason: Diarrhea Losartan Potassium (Cozaar) 100 mg PO DAILY [facility] Last Admin: 04/18/19 10:54 Dose: Not Given Metformin HCl (Glucophage) 1,000 mg PO BIDMEALS [facility] Last Admin: 04/18/19 10:54 Dose: Not Given Ondansetron HCl (Zofran Odt) 4 mg PO Q6H PRN PRN Reason: Nausea able to take PO Last Admin: 04/15/19 07:59 Dose: 4 mg Oxybutynin Chloride (Oxybutynin) 2.5 mg PO BID [facility] Last Admin: 04/18/19 10:55 Dose: Not Given Pregabalin (Lyrica) 50 mg PO BID [facility] Last Admin: 04/18/19 10:54 Dose: Not Given Sodium Chloride (Saline Flush) 10 ml FLUSH ONETIME [facility] Last Admin: 04/15/19 11:40 Dose: 10 ml Discontinued Medications Acetylcysteine (Mucomyst 20%) 200 mg NEB TIDRT [facility] Last Admin: 04/15/19 10:51 Dose: 200 mg Furosemide (Lasix) 20 mg IVPUSH ONETIME ONE Stop: 04/15/19 13:01 Last Admin: 04/15/19 13:31 Dose: 20 mg Sodium Chloride (Normal Saline) 1,000 mls @ 999 mls/hr IV .BOLUS STA Stop: 04/10/19 00:21 Last Admin: 04/10/19 00:22 Dose: 999 mls/hr Vancomycin HCl 1 gm/ Sodium (Chloride) 250 mls @ 150 mls/hr IV ONETIME ONE Stop: 04/10/19 01:04 Last Admin: 04/10/19 00:42 Dose: 150 mls/hr Levofloxacin/Dextrose 750 mg/ (Premix) 150 mls @ 100 mls/hr IV Q48H [facility] Last Admin: 04/12/19 00:21 Dose: 100 mls/hr Ceftriaxone Sodium 1 gm/ (Sodium Chloride) 50 mls @ 100 mls/hr IV Q24H [facility] Last Admin: 04/13/19 12:31 Dose: Not Given Doxycycline Hyclate 100 mg/ (Sodium Chloride) 100 mls @ 100 mls/hr IV Q12H [facility] Last Admin: 04/16/19 11:24 Dose: 100 mls/hr Sodium Chloride (Normal Saline) 79 mls @ 3 mls/sec IV ASDIRECTED [facility] Last Admin: 04/15/19 11:37 Dose: 3 mls/sec Insulin Glargine (Lantus Solostar) 10 units SUBCUT BEDTIME [facility] Last Admin: 04/11/19 21:55 Dose: 10 units Insulin Glargine (Lantus Solostar) 30 units SUBCUT BEDTIME [facility] Last Admin: 04/16/19 21:33 Dose: Not Given Insulin Glargine (Lantus Solostar) 30 units SUBCUT DAILY [facility] Last Admin: 04/16/19 11:33 Dose: 16 units Insulin Human Regular (Humulin R) 3 unit SUBCUT WITHMEALSANDBED [facility] Last Admin: 04/10/19 08:46 Dose: Not Given Iopamidol (Isovue-300 (61%)) 100 ml IV . DIRECTED PRN PRN Reason: RADIOLOGY EXAM Stop: 04/16/19 10:13 Methylprednisolone Sodium Succinate (Solu-Medrol) 125 mg IVPUSH ONETIME ONE Stop: 04/11/19 11:46 Last Admin: 04/11/19 12:12 Dose: 125 mg Methylprednisolone Sodium Succinate (Solu-Medrol) 62.5 mg IVPUSH Q8H [facility] Last Admin: 04/13/19 03:30 Dose: 62.5 mg Methylprednisolone Sodium Succinate (Solu-Medrol) 40 mg IVPUSH Q8H [facility] Last Admin: 04/17/19 03:30 Dose: 40 mg - Exam Quality Assessment: DVT Prophylaxis General: Alert, Oriented, Cooperative, Mild Distress Lungs: Clear to Auscultation, Normal Respiratory Effort Cardiovascular: Regular Rate, Regular Rhythm, No Murmurs GI/Abdominal Exam: Soft, Non-Tender, No Organomegaly, No Distention Extremities: Non-Tender, No Pedal Edema Sepsis Event Note - Evaluation Sepsis Screening Result: No Definite Risk - Focused Exam Vital Signs: Vital Signs Temp Pulse Resp BP BP BP Pulse Ox 04/18/19 11:21 96.7 F 58 L 18 151/59 H 97 04/18/19 11:20 90 04/18/19 08:14 97.5 F 78 20 145/50 H 93 L 04/18/19 07:12 86 04/18/19 06:56 93 L 04/18/19 03:13 97.3 F 76 18 147/64 H 93 L 04/18/19 01:00 93 L Pulse Ox 04/18/19 11:21 04/18/19 11:20 97 04/18/19 08:14 04/18/19 07:12 92 L 04/18/19 06:56 04/18/19 03:13 04/18/19 01:00 Date Exam was Performed: 04/18/19 Time Exam was Performed: 11:55 - Problem List Review Problem List Initiated/Reviewed/Updated: Yes - My Orders Last 24 Hours: My Active Orders 04/17/19 12:00 Insulin Glarg,Human.Rec.Analog [LantUS Solostar] 20 units SUBCUT BID 04/18/19 11:52 Loperamide [Imodium] 2 mg PO Q4H PRN - Plan Plan:: ASSESSMENT AND PLAN Aspiration pneumonitis-complicated by acute respiratory failure with hypoxia. Episode of aspiration prior to admission and possibly 2 more while hospitalized. Requiring decreased level of supplemental oxygen over the last 24 hours -Antibiotic coverage with clindamycin and ceftazidime -Mucomyst nebs -Supplement oxygen as needed -Pulmonary toilet with Acapella -Nebulizers as needed Acute cystitis without hematuria-complicated by sepsis which has resolved. Culture grew out pansensitive E. coli. -Antibiotic coverage as above Insulin-dependent diabetes mellitus-blood sugars acceptable at this time. 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 -Continue medical management Maintenance issues - - DVT prophylaxis -SCDs - GI prophylaxis -PPI - Nutrition -diabetic - Garcia catheter -not indicated Disposition - I anticipate discharge back to the care home after the hospital stay
[2019-04-18] MEDS: Insulin Glargine,Human Rec. Analog 100 Units/ML 3 ML Pen SUBCUT SCH (12:27)
[2019-04-18] MEDS ORDERED: Diltiazem 25 MG/5 ML SDV IVPUSH ONE (16:30)
--- NOTE | 2019-04-18 16:44 | PCM.SN ---
- Free Text/Narrative Note: Ms. Flores and to have an elevated heart rate this afternoon. EKG and telemetry monitoring showed evidence of atrial fibrillation. She did experience some nausea but denied any chest pain or pressure or shortness of breath and other vital signs were stable. She was monitored for about an hour on second floor and remained in the atrial fibrillation. On examination she was found to have rapid irregular rhythm, breath sounds were clear. She has been transferred to the intensive care unit and will be given a bolus dose of diltiazem at 20 mg and started on a continuous infusion of diltiazem.
[2019-04-18] MEDS: Diltiazem 100 MG in Sodium Chloride 0.9% 100 ML IV SCH ×2 (17:08→23:25)
[2019-04-18] MEDS ORDERED: oxyCODONE 5 MG Tab PO PRN (17:11)
[2019-04-18] MEDS: Ondansetron 4 MG Tab.DIS PO PRN (17:26)
[2019-04-19] MEDS: Albuterol/Ipratropium 3.0-0.5 MG/3 ML Neb Soln NEB SCH ×4 (07:27→21:34)
[2019-04-19] MEDS: Acetylcysteine 20% 200 MG/ML 4 ML Nebulizer Soln SDV NEB SCH ×3 (07:27→21:34)
[2019-04-19] MEDS: Insulin Lispro 100 Unit/ML 3 ML KwikPen SUBCUT SCH ×4 (08:02→21:39)
[2019-04-19] MEDS: metFORMIN 500 MG Tab PO SCH ×2 (08:09→17:42)
[2019-04-19] MEDS ORDERED: Diltiazem 100 MG in Sodium Chloride 0.9% 100 ML IV SCH (08:15)
[2019-04-19] MEDS: Acetaminophen 325 MG Tab PO PRN (08:35)
[2019-04-19] MEDS ORDERED: Insulin Glargine,Human Rec. Analog 100 Units/ML 3 ML Pen SUBCUT SCH (09:00)
--- NOTE | 2019-04-19 09:33 | PCM.PN ---
- General Info Date of Service: 04/19/19 Subjective Update: Ms. Flores developed atrial fibrillation with rapid ventricular response yesterday afternoon. She was transferred to the intensive care unit and started on continuous infusion of IV diltiazem. Heart rate has come under better control but she remains in atrial fibrillation. Denies any symptoms of chest pain or shortness of breath but has had nausea yesterday, improved this morning. - Review of Systems General: Reports: Weakness. Denies: Fever, Chills Pulmonary: Reports: Shortness of Breath. Denies: Pleuritic Chest Pain, Cough, Sputum, Hemoptysis, Wheezing Cardiovascular: Reports: Dyspnea on Exertion. Denies: Chest Pain, Palpitations , Orthopnea, PND, Edema Gastrointestinal: Reports: No Symptoms - Patient Data Vitals - Most Recent: Last Vital Signs Temp 98 F 04/19/19 09:22 Pulse 106 H 04/19/19 09:22 Resp 13 04/19/19 09:22 BP 116/45 L 04/19/19 09:22 Pulse Ox 92 L 04/19/19 09:22 Weight - Most Recent: 221 lb 0.003 oz I&O - Last 24 Hours: Intake & Output 04/18/19 04/19/19 04/19/19 22:59 06:59 14:59 Intake Total 50 1250 Output Total 150 Balance -100 1250 Lab Results Last 24 Hours: Laboratory Results - last 24 hr 04/19/19 Range/Units 05:52 Sodium 144 (140-148) mmol/L Potassium 4.2 (3.6-5.2) mmol/L Chloride 105 (100-108) mmol/L Carbon Dioxide 32 (21-32) mmol/L Anion Gap 6.9 (5.0-14.0) mmol/L BUN 32 H (7-18) mg/dL Creatinine 1.0 (0.6-1.0) mg/dL Est Cr Clr Drug Dosing 39.17 mL/min Estimated GFR (MDRD) 53 L (>60) Glucose 224 H (74-106) mg/dL Calcium 8.2 L (8.5-10.1) mg/dL Med Orders - Current: Current Medications Acetaminophen (Tylenol) 650 mg PO Q4H PRN PRN Reason: Pain/Fever Last Admin: 04/19/19 08:35 Dose: 650 mg Acetylcysteine (Mucomyst 20%) 200 mg NEB 0700,1500,2100 [facility] Last Admin: 04/19/19 07:27 Dose: 200 mg Albuterol (Proventil Neb Soln) 2.5 mg NEB Q4H PRN PRN Reason: Shortness Of Breath/wheezing Last Admin: 04/13/19 04:26 Dose: 2.5 mg Albuterol/Ipratropium (Duoneb 3.0-0.5 Mg/3 Ml) 3 ml NEB QIDRT [facility] Last Admin: 04/19/19 07:27 Dose: 3 ml Aspirin (Ecotrin) 325 mg PO DAILY [facility] Last Admin: 04/18/19 10:54 Dose: Not Given Diltiazem HCl (Cardizem) 60 mg PO Q6H [facility] Dimethicone/Zinc Oxide (Rash Relief-Zinc Oxide [place]) 0 gm TOP ASDIRECTED PRN PRN Reason: Rash Last Admin: 04/18/19 21:51 Dose: 1 applic Duloxetine HCl (Cymbalta) 60 mg PO DAILY [facility] Last Admin: 04/18/19 10:54 Dose: Not Given Guaifenesin/Dextromethorphan (Robitussin Dm) 10 ml PO TID [facility] Last Admin: 04/18/19 21:42 Dose: Not Given Promethazine HCl 12.5 mg/ (Sodium Chloride) 50.5 mls @ 200 mls/hr IV Q6H PRN PRN Reason: Nausea/Vomiting Last Admin: 04/13/19 21:33 Dose: 200 mls/hr Ceftazidime 1 gm/ Sodium (Chloride) 50 mls @ 100 mls/hr IV Q8H [facility] Last Admin: 04/19/19 03:52 Dose: 100 mls/hr Clindamycin Phosphate 600 mg/ (Sodium Chloride) 54 mls @ 100 mls/hr IV Q6H [facility] Last Admin: 04/19/19 04:28 Dose: 100 mls/hr Insulin Glargine (Lantus Solostar) 30 units SUBCUT DAILY [facility] Insulin Human Lispro (Humalog) 0 unit SUBCUT QIDACANDBED [facility]; Protocol Last Admin: 04/19/19 08:02 Dose: 1 unit Lactobacillus Rhamnosus (Culturelle) 1 cap PO BID [facility] Last Admin: 04/18/19 20:37 Dose: 1 cap Loperamide HCl (Imodium) 2 mg PO Q4H PRN PRN Reason: Diarrhea Last Admin: 04/18/19 12:38 Dose: 2 mg Metformin HCl (Glucophage) 1,000 mg PO BIDMEALS [facility] Last Admin: 04/19/19 08:09 Dose: 1,000 mg Ondansetron HCl (Zofran Odt) 4 mg PO Q6H PRN PRN Reason: Nausea able to take PO Last Admin: 04/18/19 17:26 Dose: 4 mg Oxybutynin Chloride (Oxybutynin) 2.5 mg PO BID [facility] Last Admin: 04/18/19 20:37 Dose: 2.5 mg Oxycodone HCl (Oxycodone) 5 mg PO Q4H PRN PRN Reason: Pain Last Admin: 04/18/19 17:21 Dose: 5 mg Pregabalin (Lyrica) 50 mg PO BID [facility] Last Admin: 04/18/19 20:37 Dose: 50 mg Sodium Chloride (Saline Flush) 10 ml FLUSH ONETIME [facility] Last Admin: 04/15/19 11:40 Dose: 10 ml Discontinued Medications Acetylcysteine (Mucomyst 20%) 200 mg NEB TIDRT [facility] Last Admin: 04/15/19 10:51 Dose: 200 mg Amlodipine Besylate (Norvasc) 5 mg PO DAILY [facility] Last Admin: 04/18/19 10:54 Dose: Not Given Diltiazem HCl (Diltiazem) 20 mg IVPUSH ONETIME ONE Stop: 04/18/19 16:31 Last Admin: 04/18/19 17:04 Dose: 20 mg Furosemide (Lasix) 20 mg IVPUSH ONETIME ONE Stop: 04/15/19 13:01 Last Admin: 04/15/19 13:31 Dose: 20 mg Diltiazem HCl 100 mg/ Sodium (Chloride) 100 mls @ 5 mls/hr IV TITRATE [facility]; Protocol Last Admin: 04/19/19 08:44 Dose: 12.5 mg/hr, 12.5 mls/hr Sodium Chloride (Normal Saline) 1,000 mls @ 999 mls/hr IV .BOLUS STA Stop: 04/10/19 00:21 Last Admin: 04/10/19 00:22 Dose: 999 mls/hr Vancomycin HCl 1 gm/ Sodium (Chloride) 250 mls @ 150 mls/hr IV ONETIME ONE Stop: 04/10/19 01:04 Last Admin: 04/10/19 00:42 Dose: 150 mls/hr Levofloxacin/Dextrose 750 mg/ (Premix) 150 mls @ 100 mls/hr IV Q48H [facility] Last Admin: 04/12/19 00:21 Dose: 100 mls/hr Ceftriaxone Sodium 1 gm/ (Sodium Chloride) 50 mls @ 100 mls/hr IV Q24H [facility] Last Admin: 04/13/19 12:31 Dose: Not Given Doxycycline Hyclate 100 mg/ (Sodium Chloride) 100 mls @ 100 mls/hr IV Q12H [facility] Last Admin: 04/16/19 11:24 Dose: 100 mls/hr Sodium Chloride (Normal Saline) 79 mls @ 3 mls/sec IV ASDIRECTED [facility] Last Admin: 04/15/19 11:37 Dose: 3 mls/sec Diltiazem HCl 100 mg/ Sodium (Chloride) 100 mls @ 5 mls/hr IV TITRATE [facility]; Protocol Last Titration: 04/19/19 07:44 Dose: 12.5 mg/hr, 12.5 mls/hr Insulin Glargine (Lantus Solostar) 10 units SUBCUT BEDTIME [facility] Last Admin: 04/11/19 21:55 Dose: 10 units Insulin Glargine (Lantus Solostar) 30 units SUBCUT BEDTIME [facility] Last Admin: 04/16/19 21:33 Dose: Not Given Insulin Glargine (Lantus Solostar) 30 units SUBCUT DAILY [facility] Last Admin: 04/16/19 11:33 Dose: 16 units Insulin Glargine (Lantus Solostar) 20 units SUBCUT BID [facility] Last Admin: 04/18/19 12:27 Dose: Not Given Insulin Glargine (Lantus Solostar) 20 units SUBCUT DAILY [facility] Insulin Human Lispro (Humalog) 0 unit SUBCUT QIDACANDBED [facility]; Protocol Last Admin: 04/18/19 11:36 Dose: Not Given Insulin Human Regular (Humulin R) 3 unit SUBCUT WITHMEALSANDBED [facility] Last Admin: 04/10/19 08:46 Dose: Not Given Iopamidol (Isovue-300 (61%)) 100 ml IV . DIRECTED PRN PRN Reason: RADIOLOGY EXAM Stop: 04/16/19 10:13 Losartan Potassium (Cozaar) 100 mg PO DAILY [facility] Last Admin: 04/18/19 10:54 Dose: Not Given Methylprednisolone Sodium Succinate (Solu-Medrol) 125 mg IVPUSH ONETIME ONE Stop: 04/11/19 11:46 Last Admin: 04/11/19 12:12 Dose: 125 mg Methylprednisolone Sodium Succinate (Solu-Medrol) 62.5 mg IVPUSH Q8H [facility] Last Admin: 04/13/19 03:30 Dose: 62.5 mg Methylprednisolone Sodium Succinate (Solu-Medrol) 40 mg IVPUSH Q8H [facility] Last Admin: 04/17/19 03:30 Dose: 40 mg - Exam General: Alert, Oriented, Cooperative, Mild Distress Lungs: Clear to Auscultation, Normal Respiratory Effort Cardiovascular: No Murmurs, Irregular Rhythm, Tachycardia GI/Abdominal Exam: Soft, Non-Tender, No Organomegaly, No Distention Sepsis Event Note - Evaluation Sepsis Screening Result: No Definite Risk - Focused Exam Vital Signs: Vital Signs Temp Pulse Resp BP Pulse Ox 04/19/19 09:22 98 F 106 H 13 116/45 L 92 L 04/19/19 07:30 102 H 04/19/19 07:00 93 15 112/46 L 94 L 04/19/19 06:00 99 16 104/43 L 93 L 04/19/19 05:00 105 H 17 112/35 L 90 L 04/19/19 04:00 96.2 F 153 H 16 112/63 95 04/19/19 03:00 126 H 16 109/42 L 94 L 04/19/19 02:00 122 H 17 104/41 L 93 L 04/19/19 01:00 116 H 17 105/48 L 94 L 04/19/19 00:00 96.5 F 112 H 16 94/52 L 93 L 04/18/19 23:00 135 H 18 81/48 L 93 L 04/18/19 22:00 117 H 17 98/42 L 93 L Date Exam was Performed: 04/19/19 Time Exam was Performed: 09:29 - Problem List Review Problem List Initiated/Reviewed/Updated: Yes - My Orders Last 24 Hours: My Active Orders 04/18/19 11:52 Loperamide [Imodium] 2 mg PO Q4H PRN 04/18/19 15:21 EKG Documentation Completion [RC] ASDIRECTED EKG 12 Lead [EK] Routine 04/18/19 16:30 Patient Status [ADT] Routine Cardiac Monitoring [RC] Q6H 04/18/19 17:00 Insulin Lispro [HumaLOG] See Protocol SUBCUT QIDACANDBED 04/18/19 17:11 oxyCODONE 5 mg PO Q4H PRN 04/19/19 10:00 Diltiazem IR [Cardizem] 60 mg PO Q6HR 04/20/19 05:00 BASIC METABOLIC PANEL,BMP [CHEM] Timed MAGNESIUM [CHEM] Timed 04/20/19 09:00 Insulin Glarg,Human.Rec.Analog [LantUS Solostar] 30 units SUBCUT DAILY - Plan Plan:: ASSESSMENT AND PLAN Aspiration pneumonitis-complicated by acute respiratory failure with hypoxia. Episode of aspiration prior to admission and possibly 2 more while hospitalized. Continued slow improvement in respiratory status -Antibiotic coverage with clindamycin and ceftazidime -Mucomyst nebs -Supplement oxygen as needed -Pulmonary toilet with Acapella -Nebulizers as needed Atrial fibrillation with rapid ventricular response-new onset yesterday afternoon requiring transfer to the intensive care unit and use of IV diltiazem. Rate is under better control today on current therapy. -Discontinue IV diltiazem -Transition to oral diltiazem 60 mg every 6 hours Acute cystitis without hematuria-complicated by sepsis which has resolved. Culture grew out pansensitive E. coli. -Antibiotic coverage as above Insulin-dependent diabetes mellitus-blood sugars acceptable at this time. 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 -Continue medical management Maintenance issues - - DVT prophylaxis -SCDs - GI prophylaxis -PPI - Nutrition -diabetic - Garcia catheter -not indicated Disposition - I anticipate discharge back to the longterm after the hospital stay
[2019-04-19] MEDS: DULoxetine 30 MG Cap PO SCH (09:58)
[2019-04-19] MEDS: Lactobacillus Rhamnosus GG (Probiotic) Cap PO SCH ×2 (09:58→21:30)
[2019-04-19] MEDS: Aspirin 325 MG Tab.EC PO SCH (09:59)
[2019-04-19] MEDS: Oxybutynin 5 MG Tab PO SCH ×2 (09:59→21:30)
[2019-04-19] MEDS: Diltiazem IR 30 MG Tab PO SCH ×3 (10:00→21:31)
[2019-04-19] MEDS: guaiFENesin/Dextromethorphan 100-10 MG/5 ML Soln 10 ML Cup PO SCH ×4 (10:01→21:31)
[2019-04-19] MEDS: Pregabalin 50 MG Cap PO SCH ×2 (10:06→21:34)
[2019-04-19] MEDS: Insulin Glargine,Human Rec. Analog 100 Units/ML 3 ML Pen SUBCUT SCH (10:39)
[2019-04-20] MEDS: Diltiazem IR 30 MG Tab PO SCH (04:05)
[2019-04-20] MEDS: Albuterol/Ipratropium 3.0-0.5 MG/3 ML Neb Soln NEB SCH ×4 (07:43→21:40)
[2019-04-20] MEDS: Acetylcysteine 20% 200 MG/ML 4 ML Nebulizer Soln SDV NEB SCH ×3 (07:43→21:41)
[2019-04-20] MEDS ORDERED: Diltiazem 120 MG Cap.CD PO SCH (09:00)
[2019-04-20] MEDS: Insulin Lispro 100 Unit/ML 3 ML KwikPen SUBCUT SCH ×4 (09:20→21:47)
[2019-04-20] MEDS: Insulin Glargine,Human Rec. Analog 100 Units/ML 3 ML Pen SUBCUT SCH (09:23)
--- NOTE | 2019-04-20 09:24 | PCM.PN ---
- General Info Date of Service: 04/20/19 Subjective Update: Ms. Flores has remained in atrial fibrillation over the last 24 hours, rate control is still suboptimal. She denies any shortness of breath or chest pain. Continues to require supplemental oxygen at 3 L/min via nasal cannula. Appetite remains poor. Functional Status: Reports: Urinating. Denies: Tolerating Diet - Review of Systems General: Reports: Weakness. Denies: Fever, Chills Pulmonary: Reports: No Symptoms, Shortness of Breath Cardiovascular: Reports: No Symptoms Gastrointestinal: Reports: No Symptoms - Patient Data Vitals - Most Recent: Last Vital Signs Temp 97.9 F 04/20/19 04:00 Pulse 107 H 04/20/19 07:44 Resp 15 04/20/19 06:00 BP 126/47 L 04/20/19 06:00 Pulse Ox 92 L 04/20/19 07:44 Weight - Most Recent: 221 lb 0.003 oz I&O - Last 24 Hours: Intake & Output 04/19/19 04/20/19 04/20/19 22:59 06:59 14:59 Intake Total 1072 340 Balance 1072 340 Lab Results Last 24 Hours: Laboratory Results - last 24 hr 04/20/19 Range/Units 04:10 Sodium 144 (140-148) mmol/L Potassium 3.8 (3.6-5.2) mmol/L Chloride 105 (100-108) mmol/L Carbon Dioxide 32 (21-32) mmol/L Anion Gap 7.4 (5.0-14.0) mmol/L BUN 26 H (7-18) mg/dL Creatinine 0.9 (0.6-1.0) mg/dL Est Cr Clr Drug Dosing 43.52 mL/min Estimated GFR (MDRD) 59 L (>60) Glucose 162 H (74-106) mg/dL Calcium 7.7 L (8.5-10.1) mg/dL Magnesium 1.4 L (1.8-2.4) mg/dL Med Orders - Current: Current Medications Acetaminophen (Tylenol) 650 mg PO Q4H PRN PRN Reason: Pain/Fever Last Admin: 04/19/19 08:35 Dose: 650 mg Acetylcysteine (Mucomyst 20%) 200 mg NEB 0700,1500,2100 [facility] Last Admin: 04/20/19 07:43 Dose: 200 mg Albuterol (Proventil Neb Soln) 2.5 mg NEB Q4H PRN PRN Reason: Shortness Of Breath/wheezing Last Admin: 04/13/19 04:26 Dose: 2.5 mg Albuterol/Ipratropium (Duoneb 3.0-0.5 Mg/3 Ml) 3 ml NEB QIDRT [facility] Last Admin: 04/20/19 07:43 Dose: 3 ml Apixaban (Eliquis) 5 mg PO BID [facility] Aspirin (Ecotrin) 325 mg PO DAILY [facility] Last Admin: 04/19/19 09:59 Dose: 325 mg Calcium Carbonate (Caltrate 600+D 1500 Mg-400 Units) 1 tab PO BID [facility] Diltiazem HCl (Cardizem Cd) 240 mg PO DAILY [facility] Dimethicone/Zinc Oxide (Rash Relief-Zinc Oxide [place]) 0 gm TOP ASDIRECTED PRN PRN Reason: Rash Last Admin: 04/18/19 21:51 Dose: 1 applic Duloxetine HCl (Cymbalta) 60 mg PO DAILY [facility] Last Admin: 04/19/19 09:58 Dose: 60 mg Guaifenesin/Dextromethorphan (Robitussin Dm) 10 ml PO TID [facility] Last Admin: 04/19/19 21:31 Dose: Not Given Magnesium Sulfate 2 gm/ Premix 50 mls @ 25 mls/hr IV Q6H [facility] Stop: 04/20/19 22:59 Promethazine HCl 12.5 mg/ (Sodium Chloride) 50.5 mls @ 200 mls/hr IV Q6H PRN PRN Reason: Nausea/Vomiting Last Admin: 04/13/19 21:33 Dose: 200 mls/hr Ceftazidime 1 gm/ Sodium (Chloride) 50 mls @ 100 mls/hr IV Q8H [facility] Stop: 04/21/19 09:00 Last Admin: 04/20/19 01:58 Dose: 100 mls/hr Clindamycin Phosphate 600 mg/ (Sodium Chloride) 54 mls @ 100 mls/hr IV Q6H [facility] Stop: 04/21/19 09:00 Last Admin: 04/20/19 04:05 Dose: 100 mls/hr Insulin Glargine (Lantus Solostar) 30 units SUBCUT DAILY [facility] Last Admin: 01/23/20 10:39 Dose: 30 units Insulin Human Lispro (Humalog) 0 unit SUBCUT QIDACANDBED [facility]; Protocol Last Admin: 04/19/19 21:39 Dose: 2 unit Lactobacillus Rhamnosus (Culturelle) 1 cap PO BID [facility] Last Admin: 04/19/19 21:30 Dose: 1 cap Loperamide HCl (Imodium) 2 mg PO Q4H PRN PRN Reason: Diarrhea Last Admin: 04/18/19 12:38 Dose: 2 mg Magnesium Oxide (Magnesium Oxide) 400 mg PO BID [facility] Metformin HCl (Glucophage) 1,000 mg PO BIDMEALS [facility] Last Admin: 04/19/19 17:42 Dose: 1,000 mg Metoprolol Tartrate (Lopressor) 12.5 mg PO Q6H [facility] Ondansetron HCl (Zofran Odt) 4 mg PO Q6H PRN PRN Reason: Nausea able to take PO Last Admin: 04/18/19 17:26 Dose: 4 mg Oxybutynin Chloride (Oxybutynin) 2.5 mg PO BID [facility] Last Admin: 04/19/19 21:30 Dose: 2.5 mg Oxycodone HCl (Oxycodone) 5 mg PO Q4H PRN PRN Reason: Pain Last Admin: 04/18/19 17:21 Dose: 5 mg Pregabalin (Lyrica) 50 mg PO BID [facility] Last Admin: 04/19/19 21:34 Dose: 50 mg Sodium Chloride (Saline Flush) 10 ml FLUSH ONETIME [facility] Last Admin: 04/15/19 11:40 Dose: 10 ml Discontinued Medications Acetylcysteine (Mucomyst 20%) 200 mg NEB TIDRT [facility] Last Admin: 04/15/19 10:51 Dose: 200 mg Amlodipine Besylate (Norvasc) 5 mg PO DAILY [facility] Last Admin: 04/18/19 10:54 Dose: Not Given Diltiazem HCl (Cardizem) 60 mg PO Q6H [facility] Last Admin: 04/20/19 04:05 Dose: 60 mg Diltiazem HCl (Diltiazem) 20 mg IVPUSH ONETIME ONE Stop: 04/18/19 16:31 Last Admin: 04/18/19 17:04 Dose: 20 mg Furosemide (Lasix) 20 mg IVPUSH ONETIME ONE Stop: 04/15/19 13:01 Last Admin: 04/15/19 13:31 Dose: 20 mg Diltiazem HCl 100 mg/ Sodium (Chloride) 100 mls @ 5 mls/hr IV TITRATE [facility]; Protocol Last Admin: 04/19/19 08:44 Dose: 12.5 mg/hr, 12.5 mls/hr Sodium Chloride (Normal Saline) 1,000 mls @ 999 mls/hr IV .BOLUS STA Stop: 04/10/19 00:21 Last Admin: 04/10/19 00:22 Dose: 999 mls/hr Vancomycin HCl 1 gm/ Sodium (Chloride) 250 mls @ 150 mls/hr IV ONETIME ONE Stop: 04/10/19 01:04 Last Admin: 04/10/19 00:42 Dose: 150 mls/hr Levofloxacin/Dextrose 750 mg/ (Premix) 150 mls @ 100 mls/hr IV Q48H [facility] Last Admin: 04/12/19 00:21 Dose: 100 mls/hr Ceftriaxone Sodium 1 gm/ (Sodium Chloride) 50 mls @ 100 mls/hr IV Q24H [facility] Last Admin: 04/13/19 12:31 Dose: Not Given Doxycycline Hyclate 100 mg/ (Sodium Chloride) 100 mls @ 100 mls/hr IV Q12H [facility] Last Admin: 04/16/19 11:24 Dose: 100 mls/hr Sodium Chloride (Normal Saline) 79 mls @ 3 mls/sec IV ASDIRECTED [facility] Last Admin: 04/15/19 11:37 Dose: 3 mls/sec Diltiazem HCl 100 mg/ Sodium (Chloride) 100 mls @ 5 mls/hr IV TITRATE [facility]; Protocol Last Titration: 04/19/19 07:44 Dose: 12.5 mg/hr, 12.5 mls/hr Insulin Glargine (Lantus Solostar) 10 units SUBCUT BEDTIME [facility] Last Admin: 04/11/19 21:55 Dose: 10 units Insulin Glargine (Lantus Solostar) 30 units SUBCUT BEDTIME [facility] Last Admin: 04/16/19 21:33 Dose: Not Given Insulin Glargine (Lantus Solostar) 30 units SUBCUT DAILY [facility] Last Admin: 04/16/19 11:33 Dose: 16 units Insulin Glargine (Lantus Solostar) 20 units SUBCUT BID [facility] Last Admin: 04/18/19 12:27 Dose: Not Given Insulin Glargine (Lantus Solostar) 20 units SUBCUT DAILY [facility] Last Admin: 04/19/19 17:52 Dose: Not Given Insulin Human Lispro (Humalog) 0 unit SUBCUT QIDACANDBED [facility]; Protocol Last Admin: 04/18/19 11:36 Dose: Not Given Insulin Human Regular (Humulin R) 3 unit SUBCUT WITHMEALSANDBED [facility] Last Admin: 04/10/19 08:46 Dose: Not Given Iopamidol (Isovue-300 (61%)) 100 ml IV . DIRECTED PRN PRN Reason: RADIOLOGY EXAM Stop: 04/16/19 10:13 Losartan Potassium (Cozaar) 100 mg PO DAILY [facility] Last Admin: 04/18/19 10:54 Dose: Not Given Methylprednisolone Sodium Succinate (Solu-Medrol) 125 mg IVPUSH ONETIME ONE Stop: 04/11/19 11:46 Last Admin: 04/11/19 12:12 Dose: 125 mg Methylprednisolone Sodium Succinate (Solu-Medrol) 62.5 mg IVPUSH Q8H [facility] Last Admin: 04/13/19 03:30 Dose: 62.5 mg Methylprednisolone Sodium Succinate (Solu-Medrol) 40 mg IVPUSH Q8H [facility] Last Admin: 04/17/19 03:30 Dose: 40 mg - Exam Quality Assessment: Supplemental Oxygen, DVT Prophylaxis General: Alert, Oriented, Cooperative, Mild Distress Lungs: Clear to Auscultation, Normal Respiratory Effort Cardiovascular: No Murmurs, Irregular Rhythm, Tachycardia GI/Abdominal Exam: Soft, Non-Tender, No Organomegaly, No Distention Extremities: Non-Tender, No Pedal Edema Sepsis Event Note - Evaluation Sepsis Screening Result: No Definite Risk - Focused Exam Vital Signs: Vital Signs Temp Pulse Resp BP Pulse Ox Pulse Ox 04/20/19 07:44 107 H 92 L 04/20/19 06:00 98 15 126/47 L 91 L 04/20/19 04:00 97.9 F 105 H 15 119/45 L 95 04/20/19 02:00 109 H 18 127/49 L 95 04/20/19 00:00 97.8 F 103 H 13 135/49 L 93 L 04/19/19 22:00 120 H 16 119/46 L 94 L Date Exam was Performed: 04/20/19 Time Exam was Performed: 09:20 - Problem List Review Problem List Initiated/Reviewed/Updated: Yes - My Orders Last 24 Hours: My Active Orders 04/19/19 09:33 Echo Comp wo Cont [US] Urgent 04/20/19 09:00 Diltiazem [Cardizem CD] 240 mg PO DAILY Insulin Glarg,Human.Rec.Analog [LantUS Solostar] 30 units SUBCUT DAILY Magnesium Oxide 400 mg PO BID Magnesium Sulfate/Water [Magnesium Sulfate in Water Premix] 2 gm Premix Bag 1 bag IV Q6H Metoprolol Tartrate [Lopressor] 12.5 mg PO Q6H 04/20/19 09:30 Apixaban [Eliquis] 5 mg PO BID Calcium Carbonate/Vitamin D3 [Caltrate 600+D 1500 MG-400 Units] 1 tab PO BID 04/21/19 05:00 BASIC METABOLIC PANEL,BMP [CHEM] Timed MAGNESIUM [CHEM] Timed - Plan Plan:: ASSESSMENT AND PLAN Aspiration pneumonitis-complicated by acute respiratory failure with hypoxia. Episode of aspiration prior to admission and possibly 2 more while hospitalized. Continued slow improvement in respiratory status, requiring 3 L of oxygen via nasal cannula -Antibiotic coverage with clindamycin and ceftazidime, did discontinue in a.m. -Mucomyst nebs -Supplement oxygen as needed -Pulmonary toilet with Acapella -Nebulizers as needed Atrial fibrillation with rapid ventricular response-rate control not as good with conversion to oral diltiazem -Diltiazem CD 240 mg daily -Start metoprolol 12.5 mg every 6 hours Acute cystitis without hematuria-resolved Insulin-dependent diabetes mellitus-blood sugars acceptable at this time. 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 -Continue medical management Maintenance issues - - DVT prophylaxis -SCDs - GI prophylaxis -PPI - Nutrition -diabetic - Garcia catheter -not indicated Disposition - I anticipate discharge back to the halfway after the hospital stay
[2019-04-20] MEDS: metFORMIN 500 MG Tab PO SCH ×2 (09:30→17:35)
[2019-04-20] MEDS: Calcium Carbonate/Vitamin D3 1500 MG-400 Units Tab PO SCH ×2 (09:42→21:42)
[2019-04-20] MEDS: Apixaban 5 MG Tab PO SCH ×2 (09:44→21:43)
[2019-04-20] MEDS: Magnesium Oxide 400 MG Tab PO SCH ×2 (09:44→21:44)
[2019-04-20] MEDS: Aspirin 325 MG Tab.EC PO SCH (09:45)
[2019-04-20] MEDS: Oxybutynin 5 MG Tab PO SCH ×2 (09:46→21:44)
[2019-04-20] MEDS: Metoprolol Tartrate 25 MG Tab PO SCH ×3 (09:48→21:43)
[2019-04-20] MEDS: Lactobacillus Rhamnosus GG (Probiotic) Cap PO SCH ×2 (09:51→21:42)
[2019-04-20] MEDS: DULoxetine 30 MG Cap PO SCH (09:51)
[2019-04-20] MEDS: guaiFENesin/Dextromethorphan 100-10 MG/5 ML Soln 10 ML Cup PO SCH ×3 (09:54→21:44)
[2019-04-20] MEDS: Magnesium Sulfate/Water 2 GM in Premix Bag 1 BAG IV SCH ×3 (09:54→21:44)
[2019-04-20] MEDS: Pregabalin 50 MG Cap PO SCH ×2 (09:57→21:49)
[2019-04-21] MEDS: Metoprolol Tartrate 25 MG Tab PO SCH (03:08)
[2019-04-21] MEDS: Acetylcysteine 20% 200 MG/ML 4 ML Nebulizer Soln SDV NEB SCH ×3 (07:20→21:02)
[2019-04-21] MEDS: Albuterol/Ipratropium 3.0-0.5 MG/3 ML Neb Soln NEB SCH ×4 (07:20→21:02)
[2019-04-21] MEDS: Insulin Glargine,Human Rec. Analog 100 Units/ML 3 ML Pen SUBCUT SCH (08:29)
[2019-04-21] MEDS: Insulin Lispro 100 Unit/ML 3 ML KwikPen SUBCUT SCH ×4 (08:36→21:01)
[2019-04-21] MEDS: metFORMIN 500 MG Tab PO SCH ×2 (09:14→17:09)
[2019-04-21] MEDS: DULoxetine 30 MG Cap PO SCH (09:23)
[2019-04-21] MEDS: Lactobacillus Rhamnosus GG (Probiotic) Cap PO SCH ×2 (09:24→21:02)
[2019-04-21] MEDS: Diltiazem 120 MG Cap.CD PO SCH (09:24)
[2019-04-21] MEDS: Calcium Carbonate/Vitamin D3 1500 MG-400 Units Tab PO SCH ×2 (09:24→21:02)
[2019-04-21] MEDS: Aspirin 325 MG Tab.EC PO SCH (09:24)
[2019-04-21] MEDS: Metoprolol Tartrate 50 MG Tab PO SCH ×2 (09:25→21:03)
[2019-04-21] MEDS: Oxybutynin 5 MG Tab PO SCH ×2 (09:26→21:02)
[2019-04-21] MEDS: Apixaban 5 MG Tab PO SCH ×2 (09:26→21:03)
[2019-04-21] MEDS: guaiFENesin/Dextromethorphan 100-10 MG/5 ML Soln 10 ML Cup PO SCH ×3 (09:27→21:03)
[2019-04-21] MEDS: Magnesium Oxide 400 MG Tab PO SCH ×2 (09:27→21:02)
--- NOTE | 2019-04-21 09:28 | PCM.PN ---
- General Info Date of Service: 04/21/19 Subjective Update: Ms. Flores has been stable since yesterday, heart rate under better control with addition of beta-zoran therapy. Appetite seems to be improving as well as overall strength. Continues to require supplemental oxygen. Functional Status: Reports: Tolerating Diet, Urinating - Review of Systems General: Reports: Weakness. Denies: Fever, Chills Pulmonary: Reports: Shortness of Breath. Denies: Pleuritic Chest Pain, Cough, Sputum, Hemoptysis, Wheezing Cardiovascular: Reports: Dyspnea on Exertion. Denies: Chest Pain, Palpitations , Orthopnea, PND, Edema, Lightheadedness Gastrointestinal: Reports: No Symptoms - Patient Data Vitals - Most Recent: Last Vital Signs Temp 96.9 F 04/21/19 08:00 Pulse 93 04/21/19 08:00 Resp 20 04/21/19 08:00 BP 139/57 L 04/21/19 08:00 Pulse Ox 93 L 04/21/19 07:21 Weight - Most Recent: 221 lb 0.003 oz I&O - Last 24 Hours: Intake & Output 04/20/19 04/21/19 04/21/19 22:59 06:59 14:59 Intake Total 740 580 Balance 740 580 Lab Results Last 24 Hours: Laboratory Results - last 24 hr 04/21/19 Range/Units 05:00 Sodium 142 (140-148) mmol/L Potassium 3.7 (3.6-5.2) mmol/L Chloride 102 (100-108) mmol/L Carbon Dioxide 34 H (21-32) mmol/L Anion Gap 9.7 (5.0-14.0) mmol/L BUN 22 H (7-18) mg/dL Creatinine 1.0 (0.6-1.0) mg/dL Est Cr Clr Drug Dosing 39.17 mL/min Estimated GFR (MDRD) 53 L (>60) Glucose 187 H (74-106) mg/dL Calcium 8.6 (8.5-10.1) mg/dL Magnesium 2.7 H D (1.8-2.4) mg/dL Med Orders - Current: Current Medications Acetaminophen (Tylenol) 650 mg PO Q4H PRN PRN Reason: Pain/Fever Last Admin: 04/19/19 08:35 Dose: 650 mg Acetylcysteine (Mucomyst 20%) 200 mg NEB 0700,1500,2100 [facility] Last Admin: 04/21/19 07:20 Dose: 200 mg Albuterol (Proventil Neb Soln) 2.5 mg NEB Q4H PRN PRN Reason: Shortness Of Breath/wheezing Last Admin: 04/13/19 04:26 Dose: 2.5 mg Albuterol/Ipratropium (Duoneb 3.0-0.5 Mg/3 Ml) 3 ml NEB QIDRT [facility] Last Admin: 04/21/19 07:20 Dose: 3 ml Apixaban (Eliquis) 5 mg PO BID [facility] Last Admin: 04/20/19 21:43 Dose: 5 mg Aspirin (Ecotrin) 325 mg PO DAILY [facility] Last Admin: 04/20/19 09:45 Dose: 325 mg Calcium Carbonate (Caltrate 600+D 1500 Mg-400 Units) 1 tab PO BID [facility] Last Admin: 04/20/19 21:42 Dose: 1 tab Diltiazem HCl (Cardizem Cd) 120 mg PO DAILY [facility] Dimethicone/Zinc Oxide (Rash Relief-Zinc Oxide [place]) 0 gm TOP ASDIRECTED PRN PRN Reason: Rash Last Admin: 04/18/19 21:51 Dose: 1 applic Duloxetine HCl (Cymbalta) 60 mg PO DAILY [facility] Last Admin: 04/20/19 09:51 Dose: 60 mg Guaifenesin/Dextromethorphan (Robitussin Dm) 10 ml PO TID [facility] Last Admin: 04/20/19 21:44 Dose: Not Given Promethazine HCl 12.5 mg/ (Sodium Chloride) 50.5 mls @ 200 mls/hr IV Q6H PRN PRN Reason: Nausea/Vomiting Last Admin: 04/13/19 21:33 Dose: 200 mls/hr Insulin Glargine (Lantus Solostar) 30 units SUBCUT DAILY [facility] Last Admin: 04/21/19 08:29 Dose: 30 units Insulin Human Lispro (Humalog) 0 unit SUBCUT QIDACANDBED [facility]; Protocol Last Admin: 04/21/19 08:36 Dose: 1 unit Lactobacillus Rhamnosus (Culturelle) 1 cap PO BID [facility] Last Admin: 04/20/19 21:42 Dose: 1 cap Loperamide HCl (Imodium) 2 mg PO Q4H PRN PRN Reason: Diarrhea Last Admin: 04/18/19 12:38 Dose: 2 mg Magnesium Oxide (Magnesium Oxide) 400 mg PO BID [facility] Last Admin: 04/20/19 21:44 Dose: 400 mg Metformin HCl (Glucophage) 1,000 mg PO BIDMEALS [facility] Last Admin: 04/21/19 09:14 Dose: 1,000 mg Metoprolol Tartrate (Lopressor) 50 mg PO Q12H [facility] Ondansetron HCl (Zofran Odt) 4 mg PO Q6H PRN PRN Reason: Nausea able to take PO Last Admin: 04/18/19 17:26 Dose: 4 mg Oxybutynin Chloride (Oxybutynin) 2.5 mg PO BID [facility] Last Admin: 04/20/19 21:44 Dose: 2.5 mg Oxycodone HCl (Oxycodone) 5 mg PO Q4H PRN PRN Reason: Pain Last Admin: 04/18/19 17:21 Dose: 5 mg Pregabalin (Lyrica) 50 mg PO BID [facility] Last Admin: 04/20/19 21:49 Dose: 50 mg Sodium Chloride (Saline Flush) 10 ml FLUSH ONETIME [facility] Last Admin: 04/15/19 11:40 Dose: 10 ml Discontinued Medications Acetylcysteine (Mucomyst 20%) 200 mg NEB TIDRT [facility] Last Admin: 04/15/19 10:51 Dose: 200 mg Amlodipine Besylate (Norvasc) 5 mg PO DAILY [facility] Last Admin: 04/18/19 10:54 Dose: Not Given Diltiazem HCl (Cardizem) 60 mg PO Q6H [facility] Last Admin: 04/20/19 04:05 Dose: 60 mg Diltiazem HCl (Cardizem Cd) 240 mg PO DAILY [facility] Last Admin: 04/20/19 09:50 Dose: 240 mg Diltiazem HCl (Diltiazem) 20 mg IVPUSH ONETIME ONE Stop: 04/18/19 16:31 Last Admin: 04/18/19 17:04 Dose: 20 mg Furosemide (Lasix) 20 mg IVPUSH ONETIME ONE Stop: 04/15/19 13:01 Last Admin: 04/15/19 13:31 Dose: 20 mg Diltiazem HCl 100 mg/ Sodium (Chloride) 100 mls @ 5 mls/hr IV TITRATE [facility]; Protocol Last Admin: 04/19/19 08:44 Dose: 12.5 mg/hr, 12.5 mls/hr Magnesium Sulfate 2 gm/ Premix 50 mls @ 25 mls/hr IV Q6H [facility] Stop: 04/20/19 22:59 Last Admin: 04/20/19 21:44 Dose: 25 mls/hr Sodium Chloride (Normal Saline) 1,000 mls @ 999 mls/hr IV .BOLUS STA Stop: 04/10/19 00:21 Last Admin: 04/10/19 00:22 Dose: 999 mls/hr Vancomycin HCl 1 gm/ Sodium (Chloride) 250 mls @ 150 mls/hr IV ONETIME ONE Stop: 04/10/19 01:04 Last Admin: 04/10/19 00:42 Dose: 150 mls/hr Levofloxacin/Dextrose 750 mg/ (Premix) 150 mls @ 100 mls/hr IV Q48H [facility] Last Admin: 04/12/19 00:21 Dose: 100 mls/hr Ceftriaxone Sodium 1 gm/ (Sodium Chloride) 50 mls @ 100 mls/hr IV Q24H [facility] Last Admin: 04/13/19 12:31 Dose: Not Given Ceftazidime 1 gm/ Sodium (Chloride) 50 mls @ 100 mls/hr IV Q8H [facility] Stop: 04/21/19 09:00 Last Admin: 04/21/19 02:45 Dose: 100 mls/hr Doxycycline Hyclate 100 mg/ (Sodium Chloride) 100 mls @ 100 mls/hr IV Q12H [facility] Last Admin: 04/16/19 11:24 Dose: 100 mls/hr Sodium Chloride (Normal Saline) 79 mls @ 3 mls/sec IV ASDIRECTED [facility] Last Admin: 04/15/19 11:37 Dose: 3 mls/sec Clindamycin Phosphate 600 mg/ (Sodium Chloride) 54 mls @ 100 mls/hr IV Q6H [facility] Stop: 04/21/19 09:00 Last Admin: 04/21/19 03:43 Dose: 100 mls/hr Diltiazem HCl 100 mg/ Sodium (Chloride) 100 mls @ 5 mls/hr IV TITRATE [facility]; Protocol Last Titration: 04/19/19 07:44 Dose: 12.5 mg/hr, 12.5 mls/hr Insulin Glargine (Lantus Solostar) 10 units SUBCUT BEDTIME [facility] Last Admin: 04/11/19 21:55 Dose: 10 units Insulin Glargine (Lantus Solostar) 30 units SUBCUT BEDTIME [facility] Last Admin: 04/16/19 21:33 Dose: Not Given Insulin Glargine (Lantus Solostar) 30 units SUBCUT DAILY [facility] Last Admin: 04/16/19 11:33 Dose: 16 units Insulin Glargine (Lantus Solostar) 20 units SUBCUT BID [facility] Last Admin: 04/18/19 12:27 Dose: Not Given Insulin Glargine (Lantus Solostar) 20 units SUBCUT DAILY [facility] Last Admin: 04/19/19 17:52 Dose: Not Given Insulin Human Lispro (Humalog) 0 unit SUBCUT QIDACANDBED [facility]; Protocol Last Admin: 04/18/19 11:36 Dose: Not Given Insulin Human Regular (Humulin R) 3 unit SUBCUT WITHMEALSANDBED [facility] Last Admin: 04/10/19 08:46 Dose: Not Given Iopamidol (Isovue-300 (61%)) 100 ml IV . DIRECTED PRN PRN Reason: RADIOLOGY EXAM Stop: 04/16/19 10:13 Losartan Potassium (Cozaar) 100 mg PO DAILY [facility] Last Admin: 04/18/19 10:54 Dose: Not Given Methylprednisolone Sodium Succinate (Solu-Medrol) 125 mg IVPUSH ONETIME ONE Stop: 04/11/19 11:46 Last Admin: 04/11/19 12:12 Dose: 125 mg Methylprednisolone Sodium Succinate (Solu-Medrol) 62.5 mg IVPUSH Q8H [facility] Last Admin: 04/13/19 03:30 Dose: 62.5 mg Methylprednisolone Sodium Succinate (Solu-Medrol) 40 mg IVPUSH Q8H [facility] Last Admin: 04/17/19 03:30 Dose: 40 mg Metoprolol Tartrate (Lopressor) 12.5 mg PO Q6H [facility] Last Admin: 04/21/19 03:08 Dose: 12.5 mg - Exam General: Alert, Oriented, Cooperative, No Acute Distress Lungs: Clear to Auscultation, Normal Respiratory Effort Cardiovascular: Regular Rate, No Murmurs, Irregular Rhythm GI/Abdominal Exam: Soft, Non-Tender, No Organomegaly, No Distention Extremities: Non-Tender, No Pedal Edema Sepsis Event Note - Evaluation Sepsis Screening Result: No Definite Risk - Focused Exam Vital Signs: Vital Signs Temp Pulse Pulse Resp BP BP Pulse Ox 04/21/19 08:00 96.9 F 93 20 139/57 L 04/21/19 07:21 99 04/21/19 06:00 92 17 123/46 L 92 L 04/21/19 04:00 88 15 127/48 L 92 L 04/21/19 03:08 90 124/43 L 04/21/19 02:00 89 17 124/32 L 91 L 04/21/19 00:00 97.8 F 82 16 111/50 L 93 L 04/20/19 22:00 91 20 124/41 L 91 L 04/20/19 21:43 99 120/45 L Pulse Ox 04/21/19 08:00 04/21/19 07:21 93 L 04/21/19 06:00 04/21/19 04:00 04/21/19 03:08 04/21/19 02:00 04/21/19 00:00 04/20/19 22:00 04/20/19 21:43 Date Exam was Performed: 04/21/19 Time Exam was Performed: 09:26 - Problem List Review Problem List Initiated/Reviewed/Updated: Yes - My Orders Last 24 Hours: My Active Orders 04/20/19 09:00 Insulin Glarg,Human.Rec.Analog [LantUS Solostar] 30 units SUBCUT DAILY Magnesium Oxide 400 mg PO BID 04/20/19 09:30 Apixaban [Eliquis] 5 mg PO BID Calcium Carbonate/Vitamin D3 [Caltrate 600+D 1500 MG-400 Units] 1 tab PO BID 04/21/19 08:30 Metoprolol Tartrate [Lopressor] 50 mg PO Q12H 04/21/19 09:00 Diltiazem [Cardizem CD] 120 mg PO DAILY 04/21/19 09:25 Convert IV to Saline Lock [OM.PC] Routine - Plan Plan:: ASSESSMENT AND PLAN Aspiration pneumonitis-complicated by acute respiratory failure with hypoxia. Episode of aspiration prior to admission and possibly 2 more while hospitalized. Continued slow improvement in respiratory status, requiring 3 L of oxygen via nasal cannula -Discontinue IV antibiotics -Mucomyst nebs -Supplement oxygen as needed -Pulmonary toilet with Acapella -Nebulizers as needed Atrial fibrillation with rapid ventricular response-rate control improved with use of beta-zoran -Diltiazem CD 120 mg daily -Metoprolol 50 mg p.o. twice daily Acute cystitis without hematuria-resolved Insulin-dependent diabetes mellitus-blood sugars acceptable at this time. 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 -Continue medical management Maintenance issues - - DVT prophylaxis -SCDs - GI prophylaxis -PPI - Nutrition -diabetic - Garcia catheter -not indicated Disposition - I anticipate discharge back to the residential after the hospital stay
[2019-04-21] MEDS: Pregabalin 50 MG Cap PO SCH ×2 (09:31→21:01)
[2019-04-22] MEDS: Acetylcysteine 20% 200 MG/ML 4 ML Nebulizer Soln SDV NEB SCH ×3 (07:18→20:07)
[2019-04-22] MEDS: Albuterol/Ipratropium 3.0-0.5 MG/3 ML Neb Soln NEB SCH ×4 (07:18→20:06)
--- NOTE | 2019-04-22 07:38 | PCM.PN ---
- General Info Date of Service: 04/22/19 Subjective Update: Ms. Flores has been stable over the last 24 hours. Heart rate under much better control with current medical therapy and her appetite is improving. She continues to require supplemental oxygen, 2 to 3 L/min via nasal cannula. Functional Status: Reports: Tolerating Diet, Urinating - Review of Systems General: Reports: Weakness. Denies: Fever, Chills Pulmonary: Reports: No Symptoms Cardiovascular: Reports: No Symptoms Gastrointestinal: Reports: No Symptoms Genitourinary: Reports: No Symptoms - Patient Data Vitals - Most Recent: Last Vital Signs Temp 98.7 F 04/22/19 02:00 Pulse 107 H 04/22/19 06:00 Resp 17 04/22/19 06:00 BP 144/69 H 04/22/19 06:00 Pulse Ox 95 04/22/19 06:00 Weight - Most Recent: 221 lb 0.003 oz I&O - Last 24 Hours: Intake & Output 04/21/19 04/22/19 04/22/19 22:59 06:59 14:59 Intake Total 700 240 Balance 700 240 Med Orders - Current: Current Medications Acetaminophen (Tylenol) 650 mg PO Q4H PRN PRN Reason: Pain/Fever Last Admin: 04/19/19 08:35 Dose: 650 mg Acetylcysteine (Mucomyst 20%) 200 mg NEB 0700,1500,2100 [facility] Last Admin: 04/22/19 07:18 Dose: 200 mg Albuterol (Proventil Neb Soln) 2.5 mg NEB Q4H PRN PRN Reason: Shortness Of Breath/wheezing Last Admin: 04/13/19 04:26 Dose: 2.5 mg Albuterol/Ipratropium (Duoneb 3.0-0.5 Mg/3 Ml) 3 ml NEB QIDRT [facility] Last Admin: 04/22/19 07:18 Dose: 3 ml Apixaban (Eliquis) 5 mg PO BID [facility] Last Admin: 04/21/19 21:03 Dose: 5 mg Aspirin (Ecotrin) 325 mg PO DAILY [facility] Last Admin: 04/21/19 09:24 Dose: 325 mg Calcium Carbonate (Caltrate 600+D 1500 Mg-400 Units) 1 tab PO BID [facility] Last Admin: 04/21/19 21:02 Dose: 1 tab Diltiazem HCl (Cardizem Cd) 120 mg PO DAILY [facility] Last Admin: 04/21/19 09:24 Dose: 120 mg Dimethicone/Zinc Oxide (Rash Relief-Zinc Oxide [place]) 0 gm TOP ASDIRECTED PRN PRN Reason: Rash Last Admin: 04/18/19 21:51 Dose: 1 applic Duloxetine HCl (Cymbalta) 60 mg PO DAILY [facility] Guaifenesin/Dextromethorphan (Robitussin Dm) 10 ml PO TID [facility] Last Admin: 04/21/19 21:03 Dose: Not Given Promethazine HCl 12.5 mg/ (Sodium Chloride) 50.5 mls @ 200 mls/hr IV Q6H PRN PRN Reason: Nausea/Vomiting Last Admin: 04/13/19 21:33 Dose: 200 mls/hr Insulin Glargine (Lantus Solostar) 30 units SUBCUT DAILY [facility] Last Admin: 04/21/19 08:29 Dose: 30 units Insulin Human Lispro (Humalog) 0 unit SUBCUT QIDACANDBED [facility]; Protocol Last Admin: 04/21/19 21:01 Dose: Not Given Lactobacillus Rhamnosus (Culturelle) 1 cap PO BID [facility] Last Admin: 04/21/19 21:02 Dose: 1 cap Loperamide HCl (Imodium) 2 mg PO Q4H PRN PRN Reason: Diarrhea Last Admin: 04/18/19 12:38 Dose: 2 mg Magnesium Oxide (Magnesium Oxide) 400 mg PO BID [facility] Last Admin: 04/21/19 21:02 Dose: 400 mg Metformin HCl (Glucophage) 1,000 mg PO BIDMEALS [facility] Last Admin: 04/21/19 17:09 Dose: 1,000 mg Metoprolol Tartrate (Lopressor) 50 mg PO Q12H [facility] Last Admin: 04/21/19 21:03 Dose: 50 mg Ondansetron HCl (Zofran Odt) 4 mg PO Q6H PRN PRN Reason: Nausea able to take PO Last Admin: 04/18/19 17:26 Dose: 4 mg Oxybutynin Chloride (Oxybutynin) 2.5 mg PO BID [facility] Last Admin: 04/21/19 21:02 Dose: 2.5 mg Oxycodone HCl (Oxycodone) 5 mg PO Q4H PRN PRN Reason: Pain Last Admin: 04/18/19 17:21 Dose: 5 mg Pregabalin (Lyrica) 50 mg PO BID [facility] Last Admin: 04/21/19 21:01 Dose: 50 mg Sodium Chloride (Saline Flush) 10 ml FLUSH ONETIME [facility] Last Admin: 04/15/19 11:40 Dose: 10 ml Discontinued Medications Acetylcysteine (Mucomyst 20%) 200 mg NEB TIDRT [facility] Last Admin: 04/15/19 10:51 Dose: 200 mg Amlodipine Besylate (Norvasc) 5 mg PO DAILY [facility] Last Admin: 04/18/19 10:54 Dose: Not Given Diltiazem HCl (Cardizem) 60 mg PO Q6H [facility] Last Admin: 04/20/19 04:05 Dose: 60 mg Diltiazem HCl (Cardizem Cd) 240 mg PO DAILY [facility] Last Admin: 04/20/19 09:50 Dose: 240 mg Diltiazem HCl (Diltiazem) 20 mg IVPUSH ONETIME ONE Stop: 04/18/19 16:31 Last Admin: 04/18/19 17:04 Dose: 20 mg Duloxetine HCl (Cymbalta) 60 mg PO DAILY [facility] Last Admin: 04/21/19 09:23 Dose: 60 mg Furosemide (Lasix) 20 mg IVPUSH ONETIME ONE Stop: 04/15/19 13:01 Last Admin: 04/15/19 13:31 Dose: 20 mg Diltiazem HCl 100 mg/ Sodium (Chloride) 100 mls @ 5 mls/hr IV TITRATE [facility]; Protocol Last Admin: 04/19/19 08:44 Dose: 12.5 mg/hr, 12.5 mls/hr Magnesium Sulfate 2 gm/ Premix 50 mls @ 25 mls/hr IV Q6H [facility] Stop: 04/20/19 22:59 Last Admin: 04/20/19 21:44 Dose: 25 mls/hr Sodium Chloride (Normal Saline) 1,000 mls @ 999 mls/hr IV .BOLUS STA Stop: 04/10/19 00:21 Last Admin: 04/10/19 00:22 Dose: 999 mls/hr Vancomycin HCl 1 gm/ Sodium (Chloride) 250 mls @ 150 mls/hr IV ONETIME ONE Stop: 04/10/19 01:04 Last Admin: 04/10/19 00:42 Dose: 150 mls/hr Levofloxacin/Dextrose 750 mg/ (Premix) 150 mls @ 100 mls/hr IV Q48H [facility] Last Admin: 04/12/19 00:21 Dose: 100 mls/hr Ceftriaxone Sodium 1 gm/ (Sodium Chloride) 50 mls @ 100 mls/hr IV Q24H [facility] Last Admin: 04/13/19 12:31 Dose: Not Given Ceftazidime 1 gm/ Sodium (Chloride) 50 mls @ 100 mls/hr IV Q8H [facility] Stop: 04/21/19 09:00 Last Admin: 04/21/19 02:45 Dose: 100 mls/hr Doxycycline Hyclate 100 mg/ (Sodium Chloride) 100 mls @ 100 mls/hr IV Q12H [facility] Last Admin: 04/16/19 11:24 Dose: 100 mls/hr Sodium Chloride (Normal Saline) 79 mls @ 3 mls/sec IV ASDIRECTED [facility] Last Admin: 04/15/19 11:37 Dose: 3 mls/sec Clindamycin Phosphate 600 mg/ (Sodium Chloride) 54 mls @ 100 mls/hr IV Q6H [facility] Stop: 04/21/19 09:00 Last Admin: 04/21/19 03:43 Dose: 100 mls/hr Diltiazem HCl 100 mg/ Sodium (Chloride) 100 mls @ 5 mls/hr IV TITRATE [facility]; Protocol Last Titration: 04/19/19 07:44 Dose: 12.5 mg/hr, 12.5 mls/hr Insulin Glargine (Lantus Solostar) 10 units SUBCUT BEDTIME [facility] Last Admin: 04/11/19 21:55 Dose: 10 units Insulin Glargine (Lantus Solostar) 30 units SUBCUT BEDTIME [facility] Last Admin: 04/16/19 21:33 Dose: Not Given Insulin Glargine (Lantus Solostar) 30 units SUBCUT DAILY [facility] Last Admin: 04/16/19 11:33 Dose: 16 units Insulin Glargine (Lantus Solostar) 20 units SUBCUT BID [facility] Last Admin: 04/18/19 12:27 Dose: Not Given Insulin Glargine (Lantus Solostar) 20 units SUBCUT DAILY [facility] Last Admin: 01/23/20 17:52 Dose: Not Given Insulin Human Lispro (Humalog) 0 unit SUBCUT QIDACANDBED [facility]; Protocol Last Admin: 04/18/19 11:36 Dose: Not Given Insulin Human Regular (Humulin R) 3 unit SUBCUT WITHMEALSANDBED [facility] Last Admin: 04/10/19 08:46 Dose: Not Given Iopamidol (Isovue-300 (61%)) 100 ml IV . DIRECTED PRN PRN Reason: RADIOLOGY EXAM Stop: 04/16/19 10:13 Losartan Potassium (Cozaar) 100 mg PO DAILY [facility] Last Admin: 04/18/19 10:54 Dose: Not Given Methylprednisolone Sodium Succinate (Solu-Medrol) 125 mg IVPUSH ONETIME ONE Stop: 04/11/19 11:46 Last Admin: 04/11/19 12:12 Dose: 125 mg Methylprednisolone Sodium Succinate (Solu-Medrol) 62.5 mg IVPUSH Q8H [facility] Last Admin: 04/13/19 03:30 Dose: 62.5 mg Methylprednisolone Sodium Succinate (Solu-Medrol) 40 mg IVPUSH Q8H [facility] Last Admin: 04/17/19 03:30 Dose: 40 mg Metoprolol Tartrate (Lopressor) 12.5 mg PO Q6H [facility] Last Admin: 04/21/19 03:08 Dose: 12.5 mg - Exam General: Alert, Oriented, Cooperative, No Acute Distress Lungs: Clear to Auscultation, Normal Respiratory Effort Cardiovascular: Regular Rate, No Murmurs, Irregular Rhythm GI/Abdominal Exam: Soft, Non-Tender, No Organomegaly, No Distention Extremities: Non-Tender, No Pedal Edema Sepsis Event Note - Evaluation Sepsis Screening Result: No Definite Risk - Focused Exam Vital Signs: Vital Signs Temp Pulse Pulse Resp BP BP Pulse Ox 04/22/19 06:00 107 H 17 144/69 H 95 04/22/19 04:00 98 20 139/61 97 04/22/19 02:00 98.7 F 97 23 H 117/50 L 94 L 04/22/19 00:00 97.3 F 90 16 113/48 L 93 L 04/21/19 22:00 103 H 16 137/53 L 93 L 04/21/19 21:03 89 127/46 L 04/21/19 20:00 98.2 F 103 H 18 127/46 L 94 L Date Exam was Performed: 04/22/19 Time Exam was Performed: 07:35 - Problem List Review Problem List Initiated/Reviewed/Updated: Yes - My Orders Last 24 Hours: My Active Orders 04/21/19 08:30 Metoprolol Tartrate [Lopressor] 50 mg PO Q12H 04/21/19 09:00 Diltiazem [Cardizem CD] 120 mg PO DAILY 04/21/19 09:25 Convert IV to Saline Lock [OM.PC] Routine - Plan Plan:: ASSESSMENT AND PLAN Aspiration pneumonitis-complicated by acute respiratory failure with hypoxia. Episode of aspiration prior to admission and possibly 2 more while hospitalized. Continued slow improvement in respiratory status, requiring 3 L of oxygen via nasal cannula -Mucomyst nebs -Supplement oxygen as needed -Pulmonary toilet with Acapella -Nebulizers as needed Atrial fibrillation with rapid ventricular response-rate control improved with use of beta-zoran -Diltiazem CD 120 mg daily -Metoprolol 50 mg p.o. twice daily Acute cystitis without hematuria-resolved Insulin-dependent diabetes mellitus-blood sugars acceptable at this time. 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 -Continue medical management Maintenance issues - - DVT prophylaxis -SCDs - GI prophylaxis -PPI - Nutrition -diabetic - Garcia catheter -not indicated Disposition - I anticipate discharge back to the shelter tomorrow
--- NOTE | 2019-04-22 07:49 | PCM.DCSUM1 ---
Discharge Summary - Hospital Course Brief History: Ms. Flores is an 84-year-old woman who was admitted through the emergency department with respiratory failure and sepsis secondary to underlying aspiration pneumonia. - Discharge Data Discharge Date: 04/23/19 Discharge Disposition: DC/Tfer to SNF 03 Condition: Fair - Referral to Home Health Primary Care Physician: PCP None - Discharge Diagnosis/Problem(s) (1) Aspiration pneumonia SNOMED Code(s): 927767974 ICD Code: J69.0 - PNEUMONITIS DUE TO INHALATION OF FOOD AND VOMIT Status: Acute Current Visit: Yes (2) Atrial fibrillation with rapid ventricular response SNOMED Code(s): 646149562953305 ICD Code: I48.91 - UNSPECIFIED ATRIAL FIBRILLATION Status: Acute Current Visit: Yes (3) Hypoxia SNOMED Code(s): 600275155 ICD Code: R09.02 - HYPOXEMIA Status: Acute Current Visit: Yes (4) Sepsis SNOMED Code(s): 70014868 ICD Code: A41.9 - SEPSIS, UNSPECIFIED ORGANISM Status: Acute Current Visit: Yes Qualifiers: Sepsis type: sepsis due to unspecified organism Sepsis acute organ dysfunction status: without acute organ dysfunction Qualified Code(s): A41.9 - Sepsis, unspecified organism (5) History of CVA (cerebrovascular accident) SNOMED Code(s): 691989581 ICD Code: Z86.73 - PRSNL HX OF TIA (TIA), AND CEREB INFRC W/O RESID DEFICITS Status: Chronic Current Visit: Yes - Patient Summary/Data Consults: Consultations 04/10/19 14:21 BIOLOGY LECTURER Eval and Treat [BIOLOGY LECTURER Evaluation and Treatment] [CONS] Routine Please Evaluate and Treat BIOLOGY LECTURER Reason for Consult: Swallow This query below is only for informational purposes and is not editable. Admission Diagnosis/Problem: Aspiration pneumonia due to gastric secretions Hospital Course: Ms. Flores is an 84-year-old woman who was admitted through the emergency department with hypoxic respiratory failure and sepsis secondary to underlying aspiration pneumonia. 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 She was doing well until the evening of admission when she developed vomiting with her evening meal and then quickly developed significant respiratory compromise with hypoxia and increasing respiratory rate. She was brought into the emergency department for further evaluation. Chest x-ray did show evidence of infiltrate and she was found to be hypoxic with elevation in respiratory rate. She was also felt to be septic with increased heart rate and elevated lactic acid level. Blood cultures were obtained and she was given vigorous IV fluid replacement per sepsis protocol. She was started on broad- spectrum IV antibiotic therapy with vancomycin and levofloxacin because of her underlying penicillin allergy. She was continued on IV fluids after admission. Unfortunately she experienced another episode of vomiting with recurrent aspiration and recurrent respiratory compromise. She slowly improved from that event and experienced a third episode of vomiting with aspiration. She remained on supplemental oxygen through the rest of her hospital stay although requirement did slowly decreased from 6 L/min via nasal cannula down to 3 L/min via nasal cannula by the time of discharge. She completed a 7-day course of antibiotic therapy after the third episode of aspiration. She continues to experience intermittent episodes of nausea but had no further episodes of aspiration. She was seen and evaluated by speech therapy and had a relatively normal swallowing evaluation. She is slowly improved from a respiratory standpoint and was close to discharge when she developed abrupt onset of atrial fibrillation with rapid ventricular response. She was transferred to the intensive care unit and given bolus dose of IV diltiazem followed by a continuous infusion of IV diltiazem. Losartan and amlodipine were discontinued. When she remained in the atrial fibrillation for 2 days she was started on oral anticoagulation with Eliquis 5 mg twice daily. Eliquis will be continued after discharge because of the ongoing atrial fibrillation. She was transitioned to oral diltiazem long-acting form 120 mg daily and also started on metoprolol 50 mg twice daily. With these interventions heart rate came under better control and she will be discharged back to the senior care on both of these meds. Echocardiogram was obtained and showed preserved left ventricular function but some evidence of diastolic dysfunction. Activity will be as tolerated and she will resume her usual diabetic diet. Blood glucose levels were monitored throughout her hospital stay and with decreased appetite. Long-acting dose of insulin was decreased to 30 units once daily and Jardiance was held at the time of discharge. Of insulin may need to be increased as her appetite improves back at the senior care. Be discharged to the senior care with supplemental oxygen 3 L/min via nasal cannula. - Patient Instructions Diet: Diabetic Diet Activity: As Tolerated - Discharge Plan *PRESCRIPTION DRUG MONITORING PROGRAM REVIEWED*: Not Applicable *COPY OF PRESCRIPTION DRUG MONITORING REPORT IN PATIENT SANTOS: Not Applicable Prescriptions/Med Rec: Apixaban [Eliquis] 5 mg PO BID #60 tablet Diltiazem [Cardizem CD] 120 mg PO DAILY #30 cap.cd Lactobacillus Rhamnosus GG [Culturelle] 1 cap PO BID #60 cap Metoprolol Tartrate [Lopressor] 50 mg PO Q12H #60 tablet Home Medications: Home Meds Aspirin 325 mg PO DAILY 01/01/13 [History] Cholecalciferol (Vitamin D3) [Vitamin D3] 400 units PO DAILY 01/01/13 [History] DULoxetine HCl [Cymbalta] 60 mg PO DAILY 01/01/13 [History] Meclizine HCl 25 mg PO TID PRN 01/01/13 [History] metFORMIN [Glucophage] 1,000 mg PO BID 07/12/14 [History] Pregabalin [Lyrica] 50 mg PO BID 04/09/19 [History] Oxybutynin [Oxybutynin ER] 5 mg PO DAILY 04/10/19 [History] Apixaban [Eliquis] 5 mg PO BID #60 tablet 04/22/19 [Rx] Diltiazem [Cardizem CD] 120 mg PO DAILY #30 cap.cd 04/22/19 [Rx] Insulin Glargine,Hum.Rec.Anlog [Lantus Solostar] 30 units SQ DAILY #0 04/22/19 [ Rx] Lactobacillus Rhamnosus GG [Culturelle] 1 cap PO BID #60 cap 04/22/19 [Rx] Metoprolol Tartrate [Lopressor] 50 mg PO Q12H #60 tablet 04/22/19 [Rx] Oxygen Therapy Mode: Nasal Cannula Oxygen Flow Rate (L/min): 3 Maintain SpO2% greater than: 90 Referrals: Parviz Bautista MD [Physician] - - Discharge Summary/Plan Comment DC Time >30 min.: No - Patient Data Vitals - Most Recent: Last Vital Signs Temp 98.7 F 04/22/19 02:00 Pulse 107 H 04/22/19 06:00 Resp 17 04/22/19 06:00 BP 144/69 H 04/22/19 06:00 Pulse Ox 95 04/22/19 06:00 Weight - Most Recent: 221 lb 0.003 oz I&O - Last 24 hours: Intake & Output 04/21/19 04/22/19 04/22/19 22:59 06:59 14:59 Intake Total 700 240 Balance 700 240 Med Orders - Current: Current Medications Acetaminophen (Tylenol) 650 mg PO Q4H PRN PRN Reason: Pain/Fever Last Admin: 04/19/19 08:35 Dose: 650 mg Acetylcysteine (Mucomyst 20%) 200 mg NEB 0700,1500,2100 [facility] Last Admin: 04/22/19 07:18 Dose: 200 mg Albuterol (Proventil Neb Soln) 2.5 mg NEB Q4H PRN PRN Reason: Shortness Of Breath/wheezing Last Admin: 04/13/19 04:26 Dose: 2.5 mg Albuterol/Ipratropium (Duoneb 3.0-0.5 Mg/3 Ml) 3 ml NEB QIDRT [facility] Last Admin: 04/22/19 07:18 Dose: 3 ml Apixaban (Eliquis) 5 mg PO BID [facility] Last Admin: 04/21/19 21:03 Dose: 5 mg Aspirin (Ecotrin) 325 mg PO DAILY [facility] Last Admin: 04/21/19 09:24 Dose: 325 mg Calcium Carbonate (Caltrate 600+D 1500 Mg-400 Units) 1 tab PO BID [facility] Last Admin: 04/21/19 21:02 Dose: 1 tab Diltiazem HCl (Cardizem Cd) 120 mg PO DAILY [facility] Last Admin: 04/21/19 09:24 Dose: 120 mg Dimethicone/Zinc Oxide (Rash Relief-Zinc Oxide Screven) 0 gm TOP ASDIRECTED PRN PRN Reason: Rash Last Admin: 04/18/19 21:51 Dose: 1 applic Duloxetine HCl (Cymbalta) 60 mg PO DAILY [facility] Guaifenesin/Dextromethorphan (Robitussin Dm) 10 ml PO TID [facility] Last Admin: 04/21/19 21:03 Dose: Not Given Promethazine HCl 12.5 mg/ (Sodium Chloride) 50.5 mls @ 200 mls/hr IV Q6H PRN PRN Reason: Nausea/Vomiting Last Admin: 04/13/19 21:33 Dose: 200 mls/hr Insulin Glargine (Lantus Solostar) 30 units SUBCUT DAILY [facility] Last Admin: 04/21/19 08:29 Dose: 30 units Insulin Human Lispro (Humalog) 0 unit SUBCUT QIDACANDBED [facility]; Protocol Last Admin: 04/21/19 21:01 Dose: Not Given Lactobacillus Rhamnosus (Culturelle) 1 cap PO BID [facility] Last Admin: 04/21/19 21:02 Dose: 1 cap Loperamide HCl (Imodium) 2 mg PO Q4H PRN PRN Reason: Diarrhea Last Admin: 04/18/19 12:38 Dose: 2 mg Magnesium Oxide (Magnesium Oxide) 400 mg PO BID [facility] Last Admin: 04/21/19 21:02 Dose: 400 mg Metformin HCl (Glucophage) 1,000 mg PO BIDMEALS [facility] Last Admin: 04/21/19 17:09 Dose: 1,000 mg Metoprolol Tartrate (Lopressor) 50 mg PO Q12H [facility] Last Admin: 04/21/19 21:03 Dose: 50 mg Ondansetron HCl (Zofran Odt) 4 mg PO Q6H PRN PRN Reason: Nausea able to take PO Last Admin: 04/18/19 17:26 Dose: 4 mg Oxybutynin Chloride (Oxybutynin) 2.5 mg PO BID [facility] Last Admin: 04/21/19 21:02 Dose: 2.5 mg Oxycodone HCl (Oxycodone) 5 mg PO Q4H PRN PRN Reason: Pain Last Admin: 04/18/19 17:21 Dose: 5 mg Pregabalin (Lyrica) 50 mg PO BID [facility] Last Admin: 04/21/19 21:01 Dose: 50 mg Sodium Chloride (Saline Flush) 10 ml FLUSH ONETIME [facility] Last Admin: 04/15/19 11:40 Dose: 10 ml Discontinued Medications Acetylcysteine (Mucomyst 20%) 200 mg NEB TIDRT [facility] Last Admin: 04/15/19 10:51 Dose: 200 mg Amlodipine Besylate (Norvasc) 5 mg PO DAILY [facility] Last Admin: 04/18/19 10:54 Dose: Not Given Diltiazem HCl (Cardizem) 60 mg PO Q6H [facility] Last Admin: 04/20/19 04:05 Dose: 60 mg Diltiazem HCl (Cardizem Cd) 240 mg PO DAILY [facility] Last Admin: 04/20/19 09:50 Dose: 240 mg Diltiazem HCl (Diltiazem) 20 mg IVPUSH ONETIME ONE Stop: 04/18/19 16:31 Last Admin: 04/18/19 17:04 Dose: 20 mg Duloxetine HCl (Cymbalta) 60 mg PO DAILY [facility] Last Admin: 04/21/19 09:23 Dose: 60 mg Furosemide (Lasix) 20 mg IVPUSH ONETIME ONE Stop: 04/15/19 13:01 Last Admin: 04/15/19 13:31 Dose: 20 mg Diltiazem HCl 100 mg/ Sodium (Chloride) 100 mls @ 5 mls/hr IV TITRATE [facility]; Protocol Last Admin: 04/19/19 08:44 Dose: 12.5 mg/hr, 12.5 mls/hr Magnesium Sulfate 2 gm/ Premix 50 mls @ 25 mls/hr IV Q6H MISTI Stop: 04/20/19 22:59 Last Admin: 04/20/19 21:44 Dose: 25 mls/hr Sodium Chloride (Normal Saline) 1,000 mls @ 999 mls/hr IV .BOLUS STA Stop: 04/10/19 00:21 Last Admin: 04/10/19 00:22 Dose: 999 mls/hr Vancomycin HCl 1 gm/ Sodium (Chloride) 250 mls @ 150 mls/hr IV ONETIME ONE Stop: 04/10/19 01:04 Last Admin: 04/10/19 00:42 Dose: 150 mls/hr Levofloxacin/Dextrose 750 mg/ (Premix) 150 mls @ 100 mls/hr IV Q48H [facility] Last Admin: 04/12/19 00:21 Dose: 100 mls/hr Ceftriaxone Sodium 1 gm/ (Sodium Chloride) 50 mls @ 100 mls/hr IV Q24H [facility] Last Admin: 04/13/19 12:31 Dose: Not Given Ceftazidime 1 gm/ Sodium (Chloride) 50 mls @ 100 mls/hr IV Q8H MISTI Stop: 04/21/19 09:00 Last Admin: 04/21/19 02:45 Dose: 100 mls/hr Doxycycline Hyclate 100 mg/ (Sodium Chloride) 100 mls @ 100 mls/hr IV Q12H [facility] Last Admin: 04/16/19 11:24 Dose: 100 mls/hr Sodium Chloride (Normal Saline) 79 mls @ 3 mls/sec IV ASDIRECTED [facility] Last Admin: 04/15/19 11:37 Dose: 3 mls/sec Clindamycin Phosphate 600 mg/ (Sodium Chloride) 54 mls @ 100 mls/hr IV Q6H [facility] Stop: 04/21/19 09:00 Last Admin: 04/21/19 03:43 Dose: 100 mls/hr Diltiazem HCl 100 mg/ Sodium (Chloride) 100 mls @ 5 mls/hr IV TITRATE [facility]; Protocol Last Titration: 04/19/19 07:44 Dose: 12.5 mg/hr, 12.5 mls/hr Insulin Glargine (Lantus Solostar) 10 units SUBCUT BEDTIME [facility] Last Admin: 04/11/19 21:55 Dose: 10 units Insulin Glargine (Lantus Solostar) 30 units SUBCUT BEDTIME [facility] Last Admin: 04/16/19 21:33 Dose: Not Given Insulin Glargine (Lantus Solostar) 30 units SUBCUT DAILY [facility] Last Admin: 04/16/19 11:33 Dose: 16 units Insulin Glargine (Lantus Solostar) 20 units SUBCUT BID [facility] Last Admin: 04/18/19 12:27 Dose: Not Given Insulin Glargine (Lantus Solostar) 20 units SUBCUT DAILY [facility] Last Admin: 04/19/19 17:52 Dose: Not Given Insulin Human Lispro (Humalog) 0 unit SUBCUT QIDACANDBED [facility]; Protocol Last Admin: 04/18/19 11:36 Dose: Not Given Insulin Human Regular (Humulin R) 3 unit SUBCUT WITHMEALSANDBED [facility] Last Admin: 04/10/19 08:46 Dose: Not Given Iopamidol (Isovue-300 (61%)) 100 ml IV . DIRECTED PRN PRN Reason: RADIOLOGY EXAM Stop: 04/16/19 10:13 Losartan Potassium (Cozaar) 100 mg PO DAILY [facility] Last Admin: 04/18/19 10:54 Dose: Not Given Methylprednisolone Sodium Succinate (Solu-Medrol) 125 mg IVPUSH ONETIME ONE Stop: 04/11/19 11:46 Last Admin: 04/11/19 12:12 Dose: 125 mg Methylprednisolone Sodium Succinate (Solu-Medrol) 62.5 mg IVPUSH Q8H [facility] Last Admin: 04/13/19 03:30 Dose: 62.5 mg Methylprednisolone Sodium Succinate (Solu-Medrol) 40 mg IVPUSH Q8H [facility] Last Admin: 04/17/19 03:30 Dose: 40 mg Metoprolol Tartrate (Lopressor) 12.5 mg PO Q6H [facility] Last Admin: 04/21/19 03:08 Dose: 12.5 mg - Exam Quality Assessment: Reports: Supplemental Oxygen, DVT Prophylaxis General: Reports: Alert, Oriented, Cooperative, No Acute Distress Lungs: Reports: Clear to Auscultation, Normal Respiratory Effort Cardiovascular: Reports: Regular Rate, No Murmurs, Irregular Rhythm GI/Abdominal Exam: Soft, Non-Tender, No Organomegaly, No Distention Extremities: Non-Tender, No Pedal Edema
[2019-04-22] MEDS: Insulin Lispro 100 Unit/ML 3 ML KwikPen SUBCUT SCH ×4 (08:36→19:47)
[2019-04-22] MEDS: metFORMIN 500 MG Tab PO SCH ×2 (08:55→17:36)
[2019-04-22] MEDS: Magnesium Oxide 400 MG Tab PO SCH ×2 (09:10→20:07)
[2019-04-22] MEDS: Apixaban 5 MG Tab PO SCH ×2 (09:13→20:07)
[2019-04-22] MEDS: Aspirin 325 MG Tab.EC PO SCH (09:13)
[2019-04-22] MEDS: Calcium Carbonate/Vitamin D3 1500 MG-400 Units Tab PO SCH ×3 (09:14→20:43)
[2019-04-22] MEDS: Metoprolol Tartrate 50 MG Tab PO SCH ×2 (09:16→19:57)
[2019-04-22] MEDS: Oxybutynin 5 MG Tab PO SCH ×2 (09:17→20:06)
[2019-04-22] MEDS: Lactobacillus Rhamnosus GG (Probiotic) Cap PO SCH ×2 (09:18→20:06)
[2019-04-22] MEDS: Diltiazem 120 MG Cap.CD PO SCH (09:18)
[2019-04-22] MEDS: DULoxetine 20 MG Cap PO SCH (09:19)
[2019-04-22] MEDS: Insulin Glargine,Human Rec. Analog 100 Units/ML 3 ML Pen SUBCUT SCH (09:22)
[2019-04-22] MEDS: guaiFENesin/Dextromethorphan 100-10 MG/5 ML Soln 10 ML Cup PO SCH ×4 (09:32→20:43)
[2019-04-22] MEDS: Pregabalin 50 MG Cap PO SCH ×2 (09:32→20:07)
[2019-04-22] MEDS: Acetaminophen 325 MG Tab PO PRN ×2 (13:38→20:09)
[2019-04-22] MEDS ORDERED: Glucose Gel 15 GM in 37.5 GM Tube PO ONE (20:21)
[2019-04-23] MEDS: Albuterol/Ipratropium 3.0-0.5 MG/3 ML Neb Soln NEB SCH ×3 (07:30→14:45)
[2019-04-23] MEDS: Acetylcysteine 20% 200 MG/ML 4 ML Nebulizer Soln SDV NEB SCH ×2 (07:31→14:46)
[2019-04-23] MEDS: Insulin Lispro 100 Unit/ML 3 ML KwikPen SUBCUT SCH ×2 (07:34→12:51)
[2019-04-23] MEDS: metFORMIN 500 MG Tab PO SCH (08:02)
[2019-04-23] MEDS: Metoprolol Tartrate 50 MG Tab PO SCH (08:03)
[2019-04-23] MEDS: Magnesium Oxide 400 MG Tab PO SCH (08:05)
[2019-04-23] MEDS: DULoxetine 20 MG Cap PO SCH (08:05)
[2019-04-23] MEDS: Lactobacillus Rhamnosus GG (Probiotic) Cap PO SCH (08:05)
[2019-04-23] MEDS: Pregabalin 50 MG Cap PO SCH (08:05)
[2019-04-23] MEDS: Calcium Carbonate/Vitamin D3 1500 MG-400 Units Tab PO SCH (08:05)
[2019-04-23] MEDS: Aspirin 325 MG Tab.EC PO SCH (08:05)
[2019-04-23] MEDS: Apixaban 5 MG Tab PO SCH (08:05)
[2019-04-23] MEDS: Oxybutynin 5 MG Tab PO SCH (08:05)
[2019-04-23] MEDS: guaiFENesin/Dextromethorphan 100-10 MG/5 ML Soln 10 ML Cup PO SCH ×2 (08:05→15:01)
[2019-04-23] MEDS: Diltiazem 120 MG Cap.CD PO SCH (08:05)
[2019-04-23] MEDS: Acetaminophen 325 MG Tab PO PRN (08:15)
[2019-04-23 11:09] VITALS: BP 105/57
[2019-04-23 14:48] VITALS: PULSE 90
== END 2019-04-23 15:27 | DRG 871 ==
LOC: JP.ED 21:43 → JP.MS 23:41 → JP.ICU 04-18 16:30 → JP.MS 04-22 10:26
PROVIDERS: ADMIT Family Medicine; ATTEND Hospitalist
DX: A41.9 Sepsis, unspecified organism (principal); J18.9 Pneumonia, unspecified organism; J69.0 Pneumonitis due to inhalation of food and vomit; J96.01 Acute respiratory failure with hypoxia; K21.9 Gastro-esophageal reflux disease without esophagitis; I11.0 Hypertensive heart disease with heart failure; I69.954 Hemiplegia and hemiparesis following unspecified cerebrovascular disease affecting left non-dominant side; N30.00 Acute cystitis without hematuria; I48.91 Unspecified atrial fibrillation; H54.7 Unspecified visual loss; J30.9 Allergic rhinitis, unspecified; Z86.73 Personal history of transient ischemic attack (TIA), and cerebral infarction without residual deficits; E78.00 Pure hypercholesterolemia, unspecified; F32.9 Major depressive disorder, single episode, unspecified; R32 Unspecified urinary incontinence; G40.909 Epilepsy, unspecified, not intractable, without status epilepticus; G89.29 Other chronic pain; M54.9 Dorsalgia, unspecified; M19.90 Unspecified osteoarthritis, unspecified site; E11.9 Type 2 diabetes mellitus without complications; E66.9 Obesity, unspecified; Z96.649 Presence of unspecified artificial hip joint; Z79.899 Other long term (current) drug therapy; E11.40 Type 2 diabetes mellitus with diabetic neuropathy, unspecified; Z99.81 Dependence on supplemental oxygen; Z79.4 Long term (current) use of insulin; Z79.82 Long term (current) use of aspirin; Z91.011 Allergy to milk products; Z86.010 Personal history of colon polyps; Z98.49 Cataract extraction status, unspecified eye; Z88.0 Allergy status to penicillin; Z68.37 Body mass index [BMI] 37.0-37.9, adult
CPT/HCPCS: 36415; 71045; 71250; 80048; 80053; 81001; 82962; 83605; 83735; 83880; 84484; 85025; 85027; 85610; 86140; 87040; 87086; 87088; 87186; 87804; 87804-59; 92610-GN; 93005; 93010; 93306; 94640; 94667; 94668; 94762; 99285; 99285-25; A9270-GY; J0696; J0713; J1815; J1815-GY; J1940; J1956; J2550; J2920; J2930; J3370; J3475; J3490; J7030; J7050; J7620-GY

== ENCOUNTER 2019-05-04 03:51 | Emergency (ER) | payer MEDICARE, MEDICAID ==
--- NOTE | 2019-05-04 04:14 | EDM.PDOC ---
ED HPI GENERAL MEDICAL PROBLEM - General Chief Complaint: Respiratory Problem Stated Complaint: MEDICAL VIA [facility] Time Seen by Provider: 05/04/19 04:06 Source of Information: Reports: Patient, Family, Old Records, RN Notes Reviewed History Limitations: Reports: No Limitations - History of Present Illness INITIAL COMMENTS - FREE TEXT/NARRATIVE: 84-year-old female presents to the emergency department today complaint of shortness of breath via EMS services. She was recently hospitalized about a week ago for an aspiration pneumonia she has a known history of atrial fibrillation with rapid ventricular response. She states she has felt more and more short of breath over the last couple of days report from the assisted is that she was given a neb treatment early this morning and then became very hypoxic unable to catch breath EMS services were called subsequently transported to the emergency department for further evaluation. By report O2 saturation in the 70s however EMS services was able to reduce her oxygen load and get her O2 saturation with back into the 90s on her normal rate of 3 L/min. Denies any chest pain nausea or vomiting - Related Data Allergies Allergy/AdvReac Type Severity Reaction Status Date / Time milk Allergy Cannot Verified 05/04/19 03:54 Remember Penicillins Allergy Hives Verified 05/04/19 03:54 Home Meds: Home Meds Aspirin 325 mg PO DAILY 01/01/13 [History] Cholecalciferol (Vitamin D3) [Vitamin D3] 400 units PO DAILY 01/01/13 [History] DULoxetine HCl [Cymbalta] 60 mg PO DAILY 01/01/13 [History] metFORMIN [Glucophage] 1,000 mg PO BID 07/12/14 [History] Pregabalin [Lyrica] 50 mg PO BID 04/09/19 [History] Oxybutynin [Oxybutynin ER] 5 mg PO DAILY 04/10/19 [History] Apixaban [Eliquis] 5 mg PO BID #60 tablet 04/22/19 [Rx] Diltiazem [Cardizem CD] 120 mg PO DAILY #30 cap.cd 04/22/19 [Rx] Lactobacillus Rhamnosus GG [Culturelle] 1 cap PO BID #60 cap 04/22/19 [Rx] Metoprolol Tartrate [Lopressor] 50 mg PO Q12H #60 tablet 04/22/19 [Rx] Albuterol Sulfate 1 dose INH Q4H PRN 05/04/19 [History] Azelastine HCl [Azelastine] 1 drop EYEBOTH BID 05/04/19 [History] Carboxymethylcellulose Sodium [Refresh Tears] 1 drop EYEBOTH DAILY 05/04/19 [ History] Diclofenac Sodium [Voltaren 1% Gel] 2 gram TOP BID 05/04/19 [History] Ferrous Sulfate 1 tab PO BID 05/04/19 [History] Insulin Glargine,Hum.Rec.Anlog [Lantus Solostar] 15 units SQ DAILY 05/04/19 [ History] Ipratropium/Albuterol Sulfate [Iprat-Albut 0.5-3(2.5) mg/3 ml] 1 dose INH QID [History] Magnesium 400 mg PO DAILY 05/04/19 [History] Triamcinolone Acetonide [Triamcinolone Acetonide 0.1% Crm] 1 dose TOP BID [History] Past Medical History HEENT History: Reports: Allergic Rhinitis, Cataract, Impaired Vision Other HEENT History: wears glasses Cardiovascular History: Reports: Afib, High Cholesterol, Hypertension Gastrointestinal History: Reports: Colon Polyp, GERD Genitourinary History: Reports: Urinary Incontinence 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: Reports: Endometriosis, Musculoskeletal History: Reports: Back Pain, Chronic, Fracture, Osteoarthritis Neurological History: Reports: CVA, Seizure Psychiatric History: Reports: Depression Endocrine/Metabolic History: Reports: Diabetes, Type II, Obesity/BMI 30+ Hematologic History: Reports: Blood Transfusion(s) - Infectious Disease History Infectious Disease History: Reports: Chicken Pox - Past Surgical History HEENT Surgical History: Reports: Cataract Surgery Cardiovascular Surgical History: Reports: None GI Surgical History: Reports: Colonoscopy Female Surgical History: Reports: None Endocrine Surgical History: Reports: None Neurological Surgical History: Reports: None Musculoskeletal Surgical History: Reports: Hip Replacement Dermatological Surgical History: Reports: None Social & Family History - Family History Family Medical History: Noncontributory - Tobacco Use Smoking Status *Q: Never Smoker - Caffeine Use Caffeine Use: Reports: None - Recreational Drug Use Recreational Drug Use: No ED ROS GENERAL - Review of Systems Review Of Systems: See Below Constitutional: Reports: No Symptoms HEENT: Reports: No Symptoms Respiratory: Reports: Shortness of Breath. Denies: Wheezing, Cough Cardiovascular: Denies: Chest Pain GI/Abdominal: Reports: No Symptoms : Reports: No Symptoms ED EXAM, GENERAL - Physical Exam Exam: See Below Exam Limited By: No Limitations General Appearance: Alert, WD/WN, No Apparent Distress Neck: Normal Inspection, Supple, Non-Tender, Full Range of Motion Respiratory/Chest: No Accessory Muscle Use, Decreased Breath Sounds, Crackles Cardiovascular: No Murmur, Irregularly Irregular GI/Abdominal: Soft, Non-Tender Extremities: Normal Inspection, Non-Tender, No Pedal Edema Course - Vital Signs Last Recorded V/S: Last Vital Signs Temp 97.5 F 05/04/19 04:05 Pulse 118 H 05/04/19 06:11 Resp 21 H 05/04/19 06:11 BP 146/74 H 05/04/19 06:11 Pulse Ox 94 L 05/04/19 06:11 - Orders/Labs/Meds Orders: Active Orders 24 hr Category Date Time Status Cardiac Monitoring [RC] .As Directed Care 05/04/19 04:10 Active Peripheral IV Care [RC] . DIRECTED Care 05/04/19 05:14 Active Chest 1V Frontal [CR] Stat Exams 05/04/19 04:11 Taken Sodium Chloride 0.9% [Saline Flush] Med 05/04/19 05:14 Active 10 ml FLUSH ASDIRECTED PRN Peripheral IV Insertion Adult [OM.PC] Urgent Oth 05/04/19 05:14 Ordered Medication Orders Sodium Chloride (Saline Flush) 10 ml FLUSH ASDIRECTED PRN PRN Reason: Keep Vein Open Last Admin: 05/04/19 05:29 Dose: 10 ml Labs: Laboratory Tests 05/04/19 05/04/19 05/04/19 Range/Units 04:45 04:45 04:45 WBC 8.1 (4.5-11.0) K/uL RBC 3.58 (3.30-5.50) M/uL Hgb 9.2 L (12.0-15.0) g/dL Hct 31.7 L (36.0-48.0) % MCV 89 (80-98) fL MCH 26 L (27-31) pg MCHC 29 L (32-36) % Plt Count 427 H (150-400) K/uL Neut % (Auto) 72 H (36-66) % Lymph % (Auto) 16 L (24-44) % Tate % (Auto) 9 H (2-6) % Eos % (Auto) 3 (2-4) % Baso % (Auto) 0 (0-1) % Sodium 146 (140-148) mmol/L Potassium 3.8 (3.6-5.2) mmol/L Chloride 103 (100-108) mmol/L Carbon Dioxide 36 H (21-32) mmol/L Anion Gap 10.8 (5.0-14.0) mmol/L BUN 11 (7-18) mg/dL Creatinine 0.7 (0.6-1.0) mg/dL Est Cr Clr Drug Dosing TNP Estimated GFR (MDRD) > 60 (>60) Glucose 190 H (74-106) mg/dL Lactic Acid 1.5 (0.4-2.0) mmol/L Calcium 8.6 (8.5-10.1) mg/dL Total Bilirubin 0.3 (0.2-1.0) mg/dL AST 13 L (15-37) U/L ALT 31 (12-78) U/L Alkaline Phosphatase 66 (46-116) U/L Troponin I 0.025 (0.000-0.056) ng/mL NT-Pro-B Natriuret Pep 4782 H (5-450) pg/mL Total Protein 6.8 (6.4-8.2) g/dL Albumin 2.3 L (3.4-5.0) g/dL Globulin 4.5 H (2.3-3.5) g/dL Albumin/Globulin Ratio 0.5 L (1.2-2.2) Meds: Medications Generic Name Dose Route Start Last Admin Trade Name Freq PRN Reason Stop Dose Admin Sodium Chloride 10 ml 05/04/19 05:14 05/04/19 05:29 Saline Flush FLUSH 10 ml ASDIRECTED PRN Administration Keep Vein Open Discontinued Medications Generic Name Dose Route Start Last Admin Trade Name Freq PRN Reason Stop Dose Admin Furosemide 80 mg 05/04/19 05:14 05/04/19 05:29 Lasix IVPUSH 05/04/19 05:15 80 mg ONETIME ONE Administration Departure - Departure Time of Disposition: 06:38 Disposition: DC/Tfer to [facility] Condition: Poor Clinical Impression: Acute exacerbation of congestive heart failure Qualifiers: Heart failure type: unspecified Qualified Code(s): I50.9 - Heart failure, unspecified - Discharge Information Instructions: Heart Failure, [id number] Referrals: Parviz Bautista MD [Primary Care Provider] - Forms: ED Department Discharge Additional Instructions: Start your Lasix tomorrow 1 tablet once a day, recommend follow-up with your primary care in the next 3 to 5 days for reevaluation, call return to the emergency department worsening of symptoms Sepsis Event Note - Evaluation Sepsis Screening Result: No Definite Risk - Focused Exam Vital Signs: Vital Signs Temp Pulse Resp BP Pulse Ox 05/04/19 06:11 118 H 21 H 146/74 H 94 L 05/04/19 04:58 108 H 20 155/55 H 91 L 05/04/19 04:05 97.5 F 112 H 25 H 147/62 H 91 L Date Exam was Performed: 05/04/19 Time Exam was Performed: 06:36 - My Orders Last 24 Hours: My Active Orders 05/04/19 04:10 Cardiac Monitoring [RC] .As Directed 05/04/19 04:11 Chest 1V Frontal [CR] Stat 05/04/19 05:14 Peripheral IV Care [RC] . DIRECTED Sodium Chloride 0.9% [Saline Flush] 10 ml FLUSH ASDIRECTED PRN Peripheral IV Insertion Adult [OM.PC] Urgent - Assessment/Plan Last 24 Hours: My Active Orders 05/04/19 04:10 Cardiac Monitoring [RC] .As Directed 05/04/19 04:11 Chest 1V Frontal [CR] Stat 05/04/19 05:14 Peripheral IV Care [RC] . DIRECTED Sodium Chloride 0.9% [Saline Flush] 10 ml FLUSH ASDIRECTED PRN Peripheral IV Insertion Adult [OM.PC] Urgent Plan: Assessment Acuity = acute Site and laterality = exacerbation congestive heart failure Etiology = unknown Manifestations = shortness of breath Location of injury = Home Lab values = hemoglobin low at 9.2 consistent normochromic anemia CMP unremarkable BNP markedly elevated 4782 last value was around 700 troponin within the normal range 0.025 probably related to leak phenomenon chest x-ray consistent with congestive heart failure type pattern official read radiologist pending Plan She had good relief with the Lasix provided did feel improvement in her dyspnea I talked to her about hospitalization she declined would like to try this at home therefore prescription written for Lasix 20 mg once a day she will start that tomorrow and then will have reevaluation by primary care in the next 3 to 5 days This note was dictated using [employer] voice recognition software please call with any questions on syntax or grammar.
[2019-05-04] MEDS ORDERED: Sodium Chloride 0.9% 10 ML Syringe FLUSH PRN (05:14)
[2019-05-04] MEDS ORDERED: Furosemide 40 MG/4 ML VIAL IVPUSH ONE (05:14)
[2019-05-04 08:33] VITALS: BP 160/59; PULSE 93
--- NOTE | 2019-05-04 09:23 | CR ---
CHEST: Portable to 10/15/2019 at 0437 CLINICAL HISTORY:Chest pain COMPARISON:Chest x-ray 04/13/[address] 04/15/2019 FINDINGS: Heart is enlarged. Patient has persistent diffuse bilateral pulmonary infiltrates also seen on prior study. There are atherosclerotic changes in the aorta. Impression: Cardiomegaly Persistent diffuse bilateral pulmonary infiltrates. There is some improvement in the left upper lobe since 04/13/2019
== END 2019-05-04 08:44 ==
LOC: JP.ED 03:51
DX: I11.0 Hypertensive heart disease with heart failure (principal); I50.9 Heart failure, unspecified; E11.9 Type 2 diabetes mellitus without complications; E66.9 Obesity, unspecified; Z68.33 Body mass index [BMI] 33.0-33.9, adult; Z86.73 Personal history of transient ischemic attack (TIA), and cerebral infarction without residual deficits; I48.91 Unspecified atrial fibrillation; E78.00 Pure hypercholesterolemia, unspecified; I10 Essential (primary) hypertension; F32.9 Major depressive disorder, single episode, unspecified; M19.90 Unspecified osteoarthritis, unspecified site; Z79.01 Long term (current) use of anticoagulants; Z88.0 Allergy status to penicillin; Z91.011 Allergy to milk products; Z79.4 Long term (current) use of insulin
CPT/HCPCS: 36415; 71045; 80053; 83605; 83880; 84484; 85025; 96374; 99284; 99285; J1940

== ENCOUNTER 2019-05-24 17:44 | Inpatient (IN) | payer MEDICARE, MEDICAID ==
[2019-05-24] MEDS ORDERED: Sodium Chloride 0.9% 10 ML Syringe FLUSH PRN (18:03)
--- NOTE | 2019-05-24 18:07 | EDM.PDOC ---
ED HPI GENERAL MEDICAL PROBLEM - General Chief Complaint: Respiratory Problem Stated Complaint: MED VIA [facility] Time Seen by Provider: 05/24/19 18:00 Source of Information: Reports: Patient, EMS, Old Records History Limitations: Reports: No Limitations - History of Present Illness INITIAL COMMENTS - FREE TEXT/NARRATIVE: 84 yo female [facility] resident presents via EMS with SOB and a cough. No fever. Has a recent hx of aspiration pneumonia. Is weaker than normal. Is chronically incontinent of urine. Onset: Today Onset Date: 05/24/19 Duration: Hour(s):, Getting Worse Location: Reports: Generalized Quality: Reports: Other (no pain reported) Severity: Moderate Improves with: Reports: None Worsens with: Reports: Other (time) Context: Reports: Other (see HPI) Associated Symptoms: Reports: Cough, Shortness of Breath, Weakness. Denies: Fever/Chills, Headaches, Nausea/Vomiting, Rash Treatments CLOTHING PRESSER: Reports: Other (see below) (none) Buttock Pain Score (Numeric/FACES): 5 - Related Data Allergies Allergy/AdvReac Type Severity Reaction Status Date / Time milk Allergy Cannot Verified 05/24/19 17:58 Remember Penicillins Allergy Hives Verified 05/24/19 17:58 Home Meds: Home Meds Aspirin 325 mg PO DAILY 01/01/13 [History] Cholecalciferol (Vitamin D3) [Vitamin D3] 400 units PO DAILY 01/01/13 [History] DULoxetine HCl [Cymbalta] 60 mg PO DAILY 01/01/13 [History] metFORMIN [Glucophage] 1,000 mg PO BID 07/12/14 [History] Pregabalin [Lyrica] 50 mg PO BID 04/09/19 [History] Oxybutynin [Oxybutynin ER] 5 mg PO DAILY 04/10/19 [History] Apixaban [Eliquis] 5 mg PO BID #60 tablet 04/22/19 [Rx] Diltiazem [Cardizem CD] 120 mg PO DAILY #30 cap.cd 04/22/19 [Rx] Lactobacillus Rhamnosus GG [Culturelle] 1 cap PO BID #60 cap 04/22/19 [Rx] Metoprolol Tartrate [Lopressor] 50 mg PO Q12H #60 tablet 04/22/19 [Rx] Albuterol Sulfate 1 dose INH Q4H PRN 05/04/19 [History] Azelastine HCl [Azelastine] 1 drop EYEBOTH BID 05/04/19 [History] Carboxymethylcellulose Sodium [Refresh Tears] 1 drop EYEBOTH DAILY 05/04/19 [ History] Diclofenac Sodium [Voltaren 1% Gel] 2 gram TOP BID 05/04/19 [History] Ferrous Sulfate 1 tab PO BID 05/04/19 [History] Insulin Glargine,Hum.Rec.Anlog [Lantus Solostar] 15 units SQ DAILY 05/04/19 [ History] Ipratropium/Albuterol Sulfate [Iprat-Albut 0.5-3(2.5) mg/3 ml] 1 dose INH QID [History] Magnesium 400 mg PO DAILY 05/04/19 [History] Triamcinolone Acetonide [Triamcinolone Acetonide 0.1% Crm] 1 dose TOP BID [History] Meclizine [Antivert] 25 mg PO Q8H PRN 05/24/19 [History] Oseltamivir [Tamiflu] 75 mg PO BID 05/24/19 [History] Past Medical History HEENT History: Reports: Allergic Rhinitis, Cataract, Impaired Vision Other HEENT History: wears glasses Cardiovascular History: Reports: Afib, High Cholesterol, Hypertension Gastrointestinal History: Reports: Colon Polyp, GERD Genitourinary History: Reports: Urinary Incontinence EXTENSION AGENT History: Reports: Endometriosis, Musculoskeletal History: Reports: Back Pain, Chronic, Fracture, Osteoarthritis Neurological History: Reports: CVA, Seizure Psychiatric History: Reports: Depression Endocrine/Metabolic History: Reports: Diabetes, Type II, Obesity/BMI 30+ Hematologic History: Reports: Blood Transfusion(s) - Infectious Disease History Infectious Disease History: Reports: Chicken Pox - Past Surgical History HEENT Surgical History: Reports: Cataract Surgery Cardiovascular Surgical History: Reports: None GI Surgical History: Reports: Colonoscopy Female Surgical History: Reports: None Endocrine Surgical History: Reports: None Neurological Surgical History: Reports: None Musculoskeletal Surgical History: Reports: Hip Replacement Dermatological Surgical History: Reports: None Social & Family History - Family History Family Medical History: Noncontributory - Caffeine Use Caffeine Use: Reports: None ED ROS GENERAL - Review of Systems Review Of Systems: See Below Constitutional: Reports: Weakness HEENT: Reports: No Symptoms Respiratory: Reports: Shortness of Breath, Cough. Denies: Wheezing, Pleuritic Chest Pain, Sputum, Hemoptysis Cardiovascular: Reports: No Symptoms Endocrine: Reports: No Symptoms GI/Abdominal: Reports: No Symptoms : Reports: No Symptoms Musculoskeletal: Reports: No Symptoms Skin: Reports: No Symptoms Neurological: Reports: No Symptoms Psychiatric: Reports: No Symptoms ED EXAM, GENERAL - Physical Exam Exam: See Below Exam Limited By: No Limitations General Appearance: Alert, WD/WN, No Apparent Distress, Lethargic, Obese Eye Exam: Bilateral Eye: Normal Inspection Ears: Normal External Exam, Normal Canal, Hearing Grossly Normal Ear Exam: Bilateral Ear: Auricle Normal, Canal Normal Nose: Normal Inspection, No Blood Throat/Mouth: Normal Inspection, Normal Lips, Normal Oropharynx, Normal Voice, No Airway Compromise Head: Atraumatic, Normocephalic Neck: Normal Inspection Respiratory/Chest: No Respiratory Distress, No Accessory Muscle Use, Rhonchi (L upper chest). No: Wheezing Cardiovascular: Regular Rate, Rhythm, No Edema GI/Abdominal: Normal Bowel Sounds, Soft, Non-Tender, No Distention Back Exam: Normal Inspection. No: CVA Tenderness (R), CVA Tenderness (L) Extremities: Normal Inspection, Normal Range of Motion, Non-Tender, No Pedal Edema Neurological: Alert, Oriented, CN II-XII Intact, Normal Cognition, No Motor/ Sensory Deficits Psychiatric: Normal Affect, Normal Mood Skin Exam: Warm, Dry, Intact, Normal Color, No Rash EKG INTERPRETATION EKG Date: 05/24/19 Time: 18:55 Rhythm: A-Fib Rate (Beats/Min): 89 [place]: Normal P-Wave: Absent QRS: Normal ST-T: Normal QT: Normal Comparison: Change From Previous EKG (Rate has slowed since last EKG) Course - Vital Signs Text/Narrative:: Nancy Posadas here @ 1920h, will admit. Last Recorded V/S: Last Vital Signs Temp 36.0 C L 05/24/19 17:55 Pulse 91 05/24/19 19:13 Resp 20 05/24/19 17:55 BP 132/64 05/24/19 19:13 Pulse Ox 92 L 05/24/19 19:13 - Orders/Labs/Meds Orders: Active Orders 24 hr Category Date Time Status Cardiac Monitoring [RC] .As Directed Care 05/24/19 18:06 Active EKG Documentation Completion [RC] ASDIRECTED Care 05/24/19 18:48 Active Oxygen Therapy Adult [Oxygen Therapy, ED] [RC] Care 05/24/19 18:03 Active ASDIRECTED Chest 1V Frontal [CR] Stat Exams 05/24/19 18:02 Taken LACTIC ACID [CHEM] Stat Lab 05/24/19 19:18 Ordered Sodium Chloride 0.9% [Saline Flush] Med 05/24/19 18:03 Active 10 ml FLUSH ASDIRECTED PRN Saline Lock Insert [OM.PC] Routine Oth 05/24/19 18:03 Ordered EKG 12 Lead [EK] Routine Ther 05/24/19 18:48 Ordered Medication Orders Sodium Chloride (Saline Flush) 10 ml FLUSH ASDIRECTED PRN PRN Reason: Keep Vein Open Last Admin: 05/24/19 18:10 Dose: 10 ml Labs: Laboratory Tests 05/24/19 05/24/19 05/24/19 Range/Units 18:10 18:10 18:10 WBC 9.1 (4.5-11.0) K/uL RBC 3.61 (3.30-5.50) M/uL Hgb 9.0 L (12.0-15.0) g/dL Hct 32.5 L (36.0-48.0) % MCV 90 (80-98) fL MCH 25 L (27-31) pg MCHC 28 L (32-36) % Plt Count 364 (150-400) K/uL Sodium 144 (140-148) mmol/L Potassium 4.4 (3.6-5.2) mmol/L Chloride 103 (100-108) mmol/L Carbon Dioxide 35 H (21-32) mmol/L Anion Gap 10.4 (5.0-14.0) mmol/L BUN 19 H D (7-18) mg/dL Creatinine 0.8 (0.6-1.0) mg/dL Est Cr Clr Drug Dosing 47.25 mL/min Estimated GFR (MDRD) > 60 (>60) Glucose 124 H (74-106) mg/dL Calcium 8.8 (8.5-10.1) mg/dL Troponin I 0.033 (0.000-0.056) ng/mL C-Reactive Protein (0.0-0.3) mg/dL NT-Pro-B Natriuret Pep (5-450) pg/mL Urine Color (YELLOW) Urine Appearance (CLEAR) Urine pH (5.0-8.0) Ur Specific [place] (1.008-1.030) Urine Protein (NEGATIVE) mg/dL Urine Glucose (UA) (NEGATIVE) mg/dL Urine Ketones (NEGATIVE) mg/dL Urine Occult Blood (NEGATIVE) Urine Nitrite (NEGATIVE) Urine Bilirubin (NEGATIVE) Urine Urobilinogen (0.2-1.0) EU/dL Ur Leukocyte Esterase (NEGATIVE) Urine RBC (0-5) Urine WBC (0-5) Ur Epithelial Cells Amorphous Sediment Urine Bacteria Urine Mucus 05/24/19 05/24/19 Range/Units 18:10 19:00 WBC (4.5-11.0) K/uL RBC (3.30-5.50) M/uL Hgb (12.0-15.0) g/dL Hct (36.0-48.0) % MCV (80-98) fL MCH (27-31) pg MCHC (32-36) % Plt Count (150-400) K/uL Sodium (140-148) mmol/L Potassium (3.6-5.2) mmol/L Chloride (100-108) mmol/L Carbon Dioxide (21-32) mmol/L Anion Gap (5.0-14.0) mmol/L BUN (7-18) mg/dL Creatinine (0.6-1.0) mg/dL Est Cr Clr Drug Dosing mL/min Estimated GFR (MDRD) (>60) Glucose (74-106) mg/dL Calcium (8.5-10.1) mg/dL Troponin I (0.000-0.056) ng/mL C-Reactive Protein 1.78 H (0.0-0.3) mg/dL NT-Pro-B Natriuret Pep 6987 H (5-450) pg/mL Urine Color Yellow (YELLOW) Urine Appearance Clear (CLEAR) Urine pH 5.5 (5.0-8.0) Ur Specific [place] >= 1.030 (1.008-1.030) Urine Protein 30 H (NEGATIVE) mg/dL Urine Glucose (UA) Negative (NEGATIVE) mg/dL Urine Ketones Negative (NEGATIVE) mg/dL Urine Occult Blood Trace-intact H (NEGATIVE) Urine Nitrite Negative (NEGATIVE) Urine Bilirubin Negative (NEGATIVE) Urine Urobilinogen 0.2 (0.2-1.0) EU/dL Ur Leukocyte Esterase Negative (NEGATIVE) Urine RBC 5-10 H (0-5) Urine WBC 0-5 (0-5) Ur Epithelial Cells Few Amorphous Sediment Few Urine Bacteria Not seen Urine Mucus Rare Meds: Medications Generic Name Dose Route Start Last Admin Trade Name Freq PRN Reason Stop Dose Admin Sodium Chloride 10 ml 05/24/19 18:03 05/24/19 18:10 Saline Flush FLUSH 10 ml ASDIRECTED PRN Administration Keep Vein Open - Radiology Interpretation Free Text/Narrative:: CXR- Departure - Departure Time of Disposition: 19:30 Disposition: Admitted As Inpatient 64 Condition: Fair Clinical Impression: Hypoxemia, Mild dehydration, Elevated brain natriuretic peptide (BNP) level, Weakness Clinical Impression: (Ruled Out): Hypoxia - Discharge Information *PRESCRIPTION DRUG MONITORING PROGRAM REVIEWED*: Not Applicable *COPY OF PRESCRIPTION DRUG MONITORING REPORT IN PATIENT SANTOS: Not Applicable Referrals: PCP,None [Primary Care Provider] - Forms: ED Department Discharge Sepsis Event Note - Evaluation Sepsis Screening Result: No Definite Risk - Focused Exam Vital Signs: Vital Signs Temp Pulse Resp BP Pulse Ox Pulse Ox 05/24/19 19:13 91 132/64 92 L 05/24/19 18:03 92 L 05/24/19 17:55 36.0 C L 90 20 118/51 L 91 L Date Exam was Performed: 05/24/19 Time Exam was Performed: 19:18 - My Orders Last 24 Hours: My Active Orders 05/24/19 18:02 Chest 1V Frontal [CR] Stat 05/24/19 18:03 Oxygen Therapy Adult [Oxygen Therapy, ED] [RC] ASDIRECTED Sodium Chloride 0.9% [Saline Flush] 10 ml FLUSH ASDIRECTED PRN Saline Lock Insert [OM.PC] Routine 05/24/19 18:06 Cardiac Monitoring [RC] .As Directed 05/24/19 18:48 EKG Documentation Completion [RC] ASDIRECTED EKG 12 Lead [EK] Routine 05/24/19 19:18 LACTIC ACID [CHEM] Stat - Assessment/Plan Last 24 Hours: My Active Orders 05/24/19 18:02 Chest 1V Frontal [CR] Stat 05/24/19 18:03 Oxygen Therapy Adult [Oxygen Therapy, ED] [RC] ASDIRECTED Sodium Chloride 0.9% [Saline Flush] 10 ml FLUSH ASDIRECTED PRN Saline Lock Insert [OM.PC] Routine 05/24/19 18:06 Cardiac Monitoring [RC] .As Directed 05/24/19 18:48 EKG Documentation Completion [RC] ASDIRECTED EKG 12 Lead [EK] Routine 05/24/19 19:18 LACTIC ACID [CHEM] Stat
--- NOTE | 2019-05-24 19:38 | CRLCR ---
INDICATION: Cough and shortness of breath. TECHNIQUE: Portable upright AP chest. COMPARISON: 05/04/2019. FINDINGS: The lung volumes are diminished. Patchy multi focal pulmonary infiltrates appear relatively stable to slightly improved on the right and increased or worse on the left. Possible small left pleural effusion. Enlarged heart. IMPRESSION: Improved right and worse left multi focal pulmonary infiltrates. Dictated by Lázaro Leon MD @ May 24 2019 7:23PM Signed by Dr. Lázaro Leon @ May 24 2019 7:37PM
[2019-05-24] MEDS ORDERED: Sodium Chloride 0.9% 1,000 ML IV SCH (20:25)
[2019-05-24] MEDS ORDERED: Albuterol 0.083% 2.5 MG/3 ML Neb Soln NEB PRN (20:25)
[2019-05-24] MEDS ORDERED: Oseltamivir 75 MG Cap PO SCH (21:00)
[2019-05-24] MEDS ORDERED: Levofloxacin/Dextrose 5%-Water 750 MG in Premix Bag 1 BAG IV SCH (21:00)
[2019-05-24] MEDS: Albuterol/Ipratropium 3.0-0.5 MG/3 ML Neb Soln NEB SCH (21:07)
[2019-05-24] MEDS: Apixaban 5 MG Tab PO SCH (21:18)
[2019-05-24] MEDS: Lactobacillus Rhamnosus GG (Probiotic) Cap PO SCH ×2 (21:18→21:27)
[2019-05-24] MEDS: Pregabalin 50 MG Cap PO SCH (21:18)
[2019-05-24] MEDS: Metoprolol Tartrate 50 MG Tab PO SCH (21:19)
--- NOTE | 2019-05-24 21:39 | PCM.HP.2 ---
H&P History of Present Illness - General Date of Service: 05/24/19 Admit Problem/Dx: Admission Diagnosis/Problem Admission Diagnosis/Problem Hypoxia Source of Information: Patient, Provider, RN History Limitations: Reports: No Limitations - History of Present Illness Initial Comments - Free Text/Narative: chief complaint: not feeling well for 3 days. 84 yo female [facility] resident presents via EMS with SOB and a cough. No fever. Has a recent hx of aspiration pneumonia. Is weaker than normal. Is chronically incontinent of urine. Onset: Today Onset of Symptoms: Reports: Gradual Duration of Symptoms: Reports: Day(s): Location: Reports: Generalized Severity: Moderate Improves with: Reports: None Worsens with: Reports: None Associated Symptoms: Reports: Cough, Shortness of Breath, Weakness Buttock Pain Score (Numeric/FACES): 5 - Related Data Allergies/Adverse Reactions: Allergies Allergy/AdvReac Type Severity Reaction Status Date / Time milk Allergy Cannot Verified 05/24/19 17:58 Remember Penicillins Allergy Hives Verified 05/24/19 17:58 Home Medications: Home Meds Aspirin 325 mg PO DAILY 01/01/13 [History] Cholecalciferol (Vitamin D3) [Vitamin D3] 400 units PO DAILY 01/01/13 [History] DULoxetine HCl [Cymbalta] 60 mg PO DAILY 01/01/13 [History] metFORMIN [Glucophage] 1,000 mg PO BID 07/12/14 [History] Pregabalin [Lyrica] 50 mg PO BID 04/09/19 [History] Oxybutynin [Oxybutynin ER] 5 mg PO DAILY 04/10/19 [History] Apixaban [Eliquis] 5 mg PO BID #60 tablet 04/22/19 [Rx] Diltiazem [Cardizem CD] 120 mg PO DAILY #30 cap.cd 04/22/19 [Rx] Lactobacillus Rhamnosus GG [Culturelle] 1 cap PO BID #60 cap 04/22/19 [Rx] Metoprolol Tartrate [Lopressor] 50 mg PO Q12H #60 tablet 04/22/19 [Rx] Albuterol Sulfate 1 dose INH Q4H PRN 05/04/19 [History] Azelastine HCl [Azelastine] 1 drop EYEBOTH BID 05/04/19 [History] Carboxymethylcellulose Sodium [Refresh Tears] 1 drop EYEBOTH DAILY 05/04/19 [ History] Diclofenac Sodium [Voltaren 1% Gel] 2 gram TOP BID 05/04/19 [History] Ferrous Sulfate 1 tab PO BID 05/04/19 [History] Insulin Glargine,Hum.Rec.Anlog [Lantus Solostar] 15 units SQ DAILY 05/04/19 [ History] Ipratropium/Albuterol Sulfate [Iprat-Albut 0.5-3(2.5) mg/3 ml] 1 dose INH QID [History] Magnesium 400 mg PO DAILY 05/04/19 [History] Triamcinolone Acetonide [Triamcinolone Acetonide 0.1% Crm] 1 dose TOP BID [History] Meclizine [Antivert] 25 mg PO Q8H PRN 05/24/19 [History] Oseltamivir [Tamiflu] 75 mg PO BID 05/24/19 [History] Past Medical History HEENT History: Reports: Allergic Rhinitis, Cataract, Impaired Vision Other HEENT History: wears glasses Cardiovascular History: Reports: Afib, High Cholesterol, Hypertension Gastrointestinal History: Reports: Colon Polyp, GERD Genitourinary History: Reports: Urinary Incontinence [employer] History: Reports: Endometriosis, Musculoskeletal History: Reports: Back Pain, Chronic, Fracture, Osteoarthritis Neurological History: Reports: CVA, Seizure Psychiatric History: Reports: Depression Endocrine/Metabolic History: Reports: Diabetes, Type II, Obesity/BMI 30+ Hematologic History: Reports: Blood Transfusion(s) - Infectious Disease History Infectious Disease History: Reports: Chicken Pox - Past Surgical History HEENT Surgical History: Reports: Cataract Surgery Cardiovascular Surgical History: Reports: None GI Surgical History: Reports: Colonoscopy Female Surgical History: Reports: None Endocrine Surgical History: Reports: None Neurological Surgical History: Reports: None Musculoskeletal Surgical History: Reports: Hip Replacement Dermatological Surgical History: Reports: None Social & Family History - Family History Family Medical History: Noncontributory - Tobacco Use Smoking Status *Q: Never Smoker - Caffeine Use Caffeine Use: Reports: Coffee - Recreational Drug Use Recreational Drug Use: No - Living Situation & Occupation Living situation: Reports: Extended Care Facility ([facility] resident.) H&P Review of Systems - Review of Systems: Review Of Systems: See Below General: Reports: Weakness, Other (cough and shortness of breath) HEENT: Reports: Glasses Pulmonary: Reports: Shortness of Breath, Wheezing, Pleuritic Chest Pain, Cough Cardiovascular: Reports: Other (Afib) Gastrointestinal: Reports: Distension (chronic), Other (chronic incontinence of bowel and bladder) Genitourinary: Reports: Incontinence Musculoskeletal: Reports: Other (chronic pain - bedridden - unable to stand.) Skin: Reports: No Symptoms Psychiatric: Reports: No Symptoms Neurological: Reports: Pre-Existing Deficit Hematologic/Lymphatic: Reports: No Symptoms Immunologic: Reports: No Symptoms Exam - Exam Exam: See Below - Vital Signs Vital Signs: Last Vital Signs Temp 36.0 C L 05/24/19 21:10 Pulse 88 05/24/19 21:19 Resp 22 H 05/24/19 21:10 BP 134/60 05/24/19 21:19 Pulse Ox 92 L 05/24/19 21:31 Weight: 94.801 kg - Exam Quality Assessment: Supplemental Oxygen, DVT Prophylaxis General: Lethargic (awakes to voice. chronic disabled adult female. bedridden) HEENT: PERRLA, Conjunctiva Clear, EOMI, Hearing Intact, Glasses, Other (natural teeth present) Neck: Supple, Trachea Midline Lungs: Decreased Breath Sounds, Rhonchi (upper chest), Other (coarse breath sounds at bases.) Cardiovascular: Irregular Rhythm GI/Abdominal Exam: Normal Bowel Sounds, Soft, Non-Tender, No Organomegaly, Distended (vs obese). 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4 (5.0-14.0) mmol/L BUN 19 H D (7-18) mg/dL Creatinine 0.8 (0.6-1.0) mg/dL Est Cr Clr Drug Dosing 47.25 mL/min Estimated GFR (MDRD) > 60 (>60) Glucose 124 H (74-106) mg/dL Lactic Acid (0.4-2.0) mmol/L Calcium 8.8 (8.5-10.1) mg/dL Troponin I 0.033 (0.000-0.056) ng/mL C-Reactive Protein (0.0-0.3) mg/dL NT-Pro-B Natriuret Pep (5-450) pg/mL Urine Color (YELLOW) Urine Appearance (CLEAR) Urine pH (5.0-8.0) Ur Specific Yantis (1.008-1.030) Urine Protein (NEGATIVE) mg/dL Urine Glucose (UA) (NEGATIVE) mg/dL Urine Ketones (NEGATIVE) mg/dL Urine Occult Blood (NEGATIVE) Urine Nitrite (NEGATIVE) Urine Bilirubin (NEGATIVE) Urine Urobilinogen (0.2-1.0) EU/dL Ur Leukocyte Esterase (NEGATIVE) Urine RBC (0-5) Urine WBC (0-5) Ur Epithelial Cells Amorphous Sediment Urine Bacteria Urine Mucus 05/24/19 05/24/19 05/24/19 Range/Units 18:10 19:00 19:18 WBC (4.5-11.0) K/uL RBC (3.30-5.50) M/uL Hgb (12.0-15.0) g/dL Hct (36.0-48.0) % MCV (80-98) fL MCH (27-31) pg MCHC (32-36) % Plt Count (150-400) K/uL Sodium (140-148) mmol/L Potassium (3.6-5.2) mmol/L Chloride (100-108) mmol/L Carbon Dioxide (21-32) mmol/L Anion Gap (5.0-14.0) mmol/L BUN (7-18) mg/dL Creatinine (0.6-1.0) mg/dL Est Cr Clr Drug Dosing mL/min Estimated GFR (MDRD) (>60) Glucose (74-106) mg/dL Lactic Acid 1.4 (0.4-2.0) mmol/L Calcium (8.5-10.1) mg/dL Troponin I (0.000-0.056) ng/mL C-Reactive Protein 1.78 H (0.0-0.3) mg/dL NT-Pro-B Natriuret Pep 6987 H (5-450) pg/mL Urine Color Yellow (YELLOW) Urine Appearance Clear (CLEAR) Urine pH 5.5 (5.0-8.0) Ur Specific Yantis >= 1.030 (1.008-1.030) Urine Protein 30 H (NEGATIVE) mg/dL Urine Glucose (UA) Negative (NEGATIVE) mg/dL Urine Ketones Negative (NEGATIVE) mg/dL Urine Occult Blood Trace-intact H (NEGATIVE) Urine Nitrite Negative (NEGATIVE) Urine Bilirubin Negative (NEGATIVE) Urine Urobilinogen 0.2 (0.2-1.0) EU/dL Ur Leukocyte Esterase Negative (NEGATIVE) Urine RBC 5-10 H (0-5) Urine WBC 0-5 (0-5) Ur Epithelial Cells Few Amorphous Sediment Few Urine Bacteria Not seen Urine Mucus Rare Result Diagrams: 05/24/19 18:10 05/24/19 18:10 Cornelio Results Last 24 hrs: Microbiology 05/24/19 20:43 Influenza Type A Antigen Screen - Final Nasal, Unspecified NEGATIVE INFLUENZA A VIRUS AG REFERENCE RANGE: NEGATIVE Influenza Type B Antigen Screen - Final NEGATIVE INFLUENZA B VIRUS AG REFERENCE RANGE: NEGATIVE Sepsis Event Note - Evaluation Sepsis Screening Result: No Definite Risk - Focused Exam Vital Signs: Vital Signs Temp Pulse Pulse Resp BP BP BP 05/24/19 21:31 05/24/19 21:19 88 134/60 05/24/19 21:11 05/24/19 21:10 36.0 C L 88 22 H 134/60 05/24/19 21:09 05/24/19 20:01 81 122/50 L 05/24/19 19:13 91 132/64 05/24/19 18:03 05/24/19 17:55 36.0 C L 90 20 118/51 L Pulse Ox Pulse Ox 05/24/19 21:31 92 L 05/24/19 21:19 05/24/19 21:11 91 L 05/24/19 21:10 91 L 05/24/19 21:09 91 L 05/24/19 20:01 91 L 05/24/19 19:13 92 L 05/24/19 18:03 92 L 05/24/19 17:55 91 L Date Exam was Performed: 05/24/19 Time Exam was Performed: 22:41 - Problem List (1) Hypoxemia SNOMED Code(s): 608295201 ICD Code: R09.02 - HYPOXEMIA Status: Acute Priority: High Current Visit : Yes (2) Mild dehydration SNOMED Code(s): 0412423793830 ICD Code: E86.0 - DEHYDRATION Status: Acute Priority: High Current Visit: Yes (3) Diabetes mellitus SNOMED Code(s): 23869410 ICD Code: E11.9 - TYPE 2 DIABETES MELLITUS WITHOUT COMPLICATIONS Status: Chronic Priority: Low Current Visit: Yes Qualifiers: Diabetes mellitus type: type 2 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 Diabetes mellitus complication status: with neurologic complications Diabetes mellitus complication detail: with unspecified neuropathy Qualified Code(s): E11.40 - Type 2 diabetes mellitus with diabetic neuropathy, unspecified; 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 (4) Elevated brain natriuretic peptide (BNP) level SNOMED Code(s): 418064459, 978260252 ICD Code: R79.89 - OTHER SPECIFIED ABNORMAL FINDINGS OF BLOOD CHEMISTRY Status: Acute Priority: High Current Visit: Yes (5) Atrial fibrillation and flutter SNOMED Code(s): 417712305 ICD Code: I48.91 - UNSPECIFIED ATRIAL FIBRILLATION; I48.92 - UNSPECIFIED ATRIAL FLUTTER Status: Acute Priority: Low Current Visit: Yes (6) History of CVA (cerebrovascular accident) SNOMED Code(s): 711808186 ICD Code: Z86.73 - PRSNL HX OF TIA (TIA), AND CEREB INFRC W/O RESID DEFICITS Status: Chronic Priority: Low Current Visit: Yes Problem List Initiated/Reviewed/Updated: Yes Orders Last 24hrs: Active Orders 24 hr Category Date Time Status Bedrest Bedside Commode [RC] ASDIRECTED Care 05/24/19 20:25 Active Cardiac Monitoring [RC] .As Directed Care 05/24/19 18:06 Active Cardiac Monitoring [RC] CONTINUOUS Care 05/24/19 20:25 Active Intake and Output [RC] QSHIFT Care 05/24/19 20:25 Active Notify Provider Vital Signs [RC] ASDIRECTED Care 05/24/19 20:25 Active Oxygen Therapy [RC] PRN Care 05/24/19 20:25 Active Pulse Oximetry [RC] CONTINUOUS Care 05/24/19 20:25 Active RT Aerosol Therapy [RC] ASDIRECTED Care 05/24/19 20:25 Active VTE/DVT Education [RC] Per Unit Routine Care 05/24/19 20:25 Active Vaccines to be Administered [RC] PER UNIT ROUTINE Care 05/24/19 20:55 Active Vital Signs [RC] Q4H Care 05/24/19 20:25 Active Consult to Spiritual Care [CONS] Routine Cons 05/24/19 20:25 Active Consistent Carbohydrate Diet [DIET] Diet 05/24/19 Breakfast Active Chest 1V Frontal [CR] AM Exams 05/25/19 05:11 Ordered BASIC METABOLIC PANEL,BMP [CHEM] AM Lab 05/25/19 05:11 Ordered CBC WITH AUTO DIFF [HEME] AM Lab 05/25/19 05:11 Ordered CULTURE BLOOD [BC] Urgent Lab 05/24/19 20:35 Received CULTURE BLOOD [BC] Urgent Lab 05/24/19 20:41 Received LACTIC ACID [CHEM] Timed Lab 05/25/19 00:15 Ordered TROPONIN I [CHEM] Timed Lab 05/25/19 00:10 Ordered Albuterol [Proventil Neb Soln] Med 05/24/19 20:25 Active 2.5 mg NEB Q4H PRN Albuterol/Ipratropium [DuoNeb 3.0-0.5 MG/3 ML] Med 05/24/19 21:00 Active 3 ml NEB QIDRT Apixaban [Eliquis] Med 05/24/19 21:00 Active 5 mg PO BID DULoxetine [Cymbalta] Med 05/25/19 09:00 Active 60 mg PO DAILY Diltiazem [Cardizem CD] Med 05/25/19 09:00 Active 120 mg PO DAILY Diphth,Pertuss(Acell),Tet Vac [Adacel] Med 05/25/19 10:00 Once 0.5 ml IM .ONCE ONE Hypromellose [GenTeal Mild to Moderate Ophth Soln] Med 05/25/19 09:00 Active 0 ml EYEBOTH DAILY Insulin Glarg,Human.Rec.Analog [LantUS Solostar] Med 05/25/19 09:00 Active 15 units SUBCUT DAILY Ketotifen [Ketotifen 0.025% Ophth Soln] Med 05/24/19 21:00 Active 0 ml EYEBOTH BID Lactobacillus Rhamnosus GG [Culturelle] Med 05/24/19 21:00 Active 1 cap PO BID Levofloxacin/Dextrose 5%-Water [Levaquin in D5W 750 MG/ Med 05/24/19 21:00 Active 150 ML] 750 mg Premix Bag 1 bag IV Q48H Magnesium Oxide Med 05/25/19 09:00 Active 400 mg PO DAILY Meropenem [Merrem] 500 mg Med 05/24/19 22:00 Active Sodium Chloride 0.9% [Normal Saline] 50 ml IV Q8H Metoprolol Tartrate [Lopressor] Med 05/24/19 21:00 Active 50 mg PO Q12H Oseltamivir [Tamiflu] Med 05/24/19 21:00 Active 30 mg PO BID Pregabalin [Lyrica] Med 05/24/19 21:00 Active 50 mg PO BID Sodium Chloride 0.9% [Normal Saline] 1,000 ml Med 05/24/19 20:25 Active IV ASDIRECTED Sodium Chloride 0.9% [Saline Flush] Med 05/24/19 18:03 Active 10 ml FLUSH ASDIRECTED PRN Blood Culture x2 Reflex Set [OM.PC] Urgent Oth 05/24/19 20:25 Ordered Blood Culture x2 Reflex Set [OM.PC] Urgent Oth 05/24/19 20:25 Ordered Give supplemental Oxygen PRN [COMM] Routine Oth 05/24/19 20:25 Ordered Saline Lock Insert [OM.PC] Routine Oth 05/24/19 18:03 Ordered Resuscitation Status Routine Resus Stat 05/24/19 19:40 Ordered EKG 12 Lead [EK] Routine Ther 05/24/19 18:48 Ordered Medication Orders Albuterol (Proventil Neb Soln) 2.5 mg NEB Q4H PRN PRN Reason: Shortness Of Breath/wheezing Albuterol/Ipratropium (Duoneb 3.0-0.5 Mg/3 Ml) 3 ml NEB QIDRT [facility] Last Admin: 05/24/19 21:07 Dose: 3 ml Apixaban (Eliquis) 5 mg PO BID [facility] Last Admin: 05/24/19 21:18 Dose: 5 mg Artificial Tears (Genteal Mild To Moderate Ophth Soln) 0 ml EYEBOTH DAILY [facility] Diltiazem HCl (Cardizem Cd) 120 mg PO DAILY [facility] Diphtheria/Tetanus/Acell Pertussis (Adacel) 0.5 ml IM .ONCE ONE Stop: 05/25/19 10:01 Duloxetine HCl (Cymbalta) 60 mg PO DAILY [facility] Levofloxacin/Dextrose 750 mg/ (Premix) 150 mls @ 100 mls/hr IV Q48H [facility] Last Admin: 05/24/19 21:14 Dose: 100 mls/hr Sodium Chloride (Normal Saline) 1,000 mls @ 75 mls/hr IV ASDIRECTED [facility] Last Admin: 05/24/19 20:46 Dose: 75 mls/hr Meropenem 500 mg/ Sodium (Chloride) 50 mls @ 100 mls/hr IV Q8H [facility] Insulin Glargine (Lantus Solostar) 15 units SUBCUT DAILY [facility] Ketotifen Fumarate (Ketotifen 0.025% Ophth Soln) 0 ml EYEBOTH BID [facility] Lactobacillus Rhamnosus (Culturelle) 1 cap PO BID [facility] Last Admin: 05/24/19 21:27 Dose: Magnesium Oxide (Magnesium Oxide) 400 mg PO DAILY [facility] Metoprolol Tartrate (Lopressor) 50 mg PO Q12H [facility] Last Admin: 05/24/19 21:19 Dose: 50 mg Oseltamivir Phosphate (Tamiflu) 30 mg PO BID [facility] Stop: 05/29/19 09:01 Pregabalin (Lyrica) 50 mg PO BID [facility] Last Admin: 05/24/19 21:18 Dose: 50 mg Sodium Chloride (Saline Flush) 10 ml FLUSH ASDIRECTED PRN PRN Reason: Keep Vein Open Last Admin: 05/24/19 18:10 Dose: 10 ml Assessment/Plan Comment:: ASSESSMENT AND PLAN - Shortness of breath 84 yo female [facility] resident presents via EMS with SOB and a cough. No fever. Has a recent hx of aspiration pneumonia. Is weaker than normal. Is chronically incontinent of urine. Hypoxia -rule out pneumonia -IV Levaquin 750mg every 24 hours -IV Meropenem 1 gram every 8 hours -IV fluids 75ml/hr -Duo nebs 4 times a day scheduled -Albuterol nebs every 4 hours as needed for shortness of breath -supplemental oxygen to keeps oxygen saturation >95% -blood cultures x 2 pending -am labs CBC, BMP -repeat chest x-ray in am Dehydration -IV fluids Normal Saline 75ml/hr -am labs BMP Diabetes type 2 -Long acting insulin every am -blood glucose testing before meals and at bedtime Elevated Pro-bnp -monitor for fluid overload -repeat chest x-ray in am Afib-flutter -continue outpatient medications -residential monitor Maintenance issues - - DVT prophylaxis - continue Eliquis 5 mg po bid - GI prophylaxis -PPI - Nutrition -consistent carb diet - Garcia catheter -chronic incontinence CODE STATUS -DNR/DNI Admission justification -this patient will be admitted for inpatient services and is medically appropriate meeting medical necessity for inpatient admission as outlined in my documentation. I reasonably expect the patient will require inpatient services that span a period time over 2 midnights. I reasonably expect this patient to be discharged or transferred within 96 hours [facility]. Disposition -I would anticipate discharge to [facility]. Primary care physician - [facility] Stanlye Nobles M.D. - Mortality Measure Prognosis:: Good - Mortality Measure Prognosis:: Good
[2019-05-24] MEDS: Meropenem 500 MG in Sodium Chloride 0.9% 50 ML IV SCH (22:46)
[2019-05-24] MEDS: Oseltamivir 30 MG Cap PO SCH (23:12)
[2019-05-25] MEDS: Ketotifen 0.025% Ophth Soln 5 ML Bottle EYEBOTH SCH ×3 (02:17→20:21)
[2019-05-25] MEDS: Meropenem 500 MG in Sodium Chloride 0.9% 50 ML IV SCH (05:18)
[2019-05-25] MEDS: Albuterol/Ipratropium 3.0-0.5 MG/3 ML Neb Soln NEB SCH ×4 (06:58→20:53)
--- NOTE | 2019-05-25 08:55 | CR ---
CHEST: Portable 05/25/2019 at 04 34 CLINICAL HISTORY:Hypoxia COMPARISON:05/24/2019 FINDINGS: Diffuse bilateral pulmonary infiltrates and bilateral effusions persist. Vascularity appears cephalized. There is a curvilinear lucency under the right hemidiaphragm. This may represent some superimposition or some fluid in the fissure. Air under the right hemidiaphragm is not excluded.. Impression: Persistent diffuse bilateral pulmonary infiltrates similar to prior study considering technical differences Curvilinear lucency near the right hemidiaphragm may be some superimposition. Free air is not excluded and a lateral decubitus abdomen is recommended. The charge nurse was notified by telephone at the time of this dictation at 08 50 about the above recommendation.
[2019-05-25] MEDS: Lactobacillus Rhamnosus GG (Probiotic) Cap PO SCH ×2 (09:44→20:20)
[2019-05-25] MEDS: DULoxetine 30 MG Cap PO SCH (09:45)
[2019-05-25] MEDS: Apixaban 5 MG Tab PO SCH ×2 (09:45→20:21)
[2019-05-25] MEDS: Metoprolol Tartrate 50 MG Tab PO SCH ×2 (09:45→20:22)
[2019-05-25] MEDS: Magnesium Oxide 400 MG Tab PO SCH (09:45)
[2019-05-25] MEDS: Oseltamivir 30 MG Cap PO SCH (09:46)
[2019-05-25] MEDS: Diltiazem 120 MG Cap.CD PO SCH (09:46)
[2019-05-25] MEDS: Hypromellose 0.3% Ophth Soln 15 ML Bottle EYEBOTH SCH (09:47)
[2019-05-25] MEDS ORDERED: Diphtheria,Pertussis(Acell),Tetanus Vaccine 0.5 ML SDV IM ONE (10:00)
[2019-05-25] MEDS: Pregabalin 50 MG Cap PO SCH ×2 (10:24→20:26)
[2019-05-25] MEDS: Insulin Glargine,Human Rec. Analog 100 Units/ML 3 ML Pen SUBCUT SCH (10:26)
[2019-05-25] MEDS ORDERED: Sodium Chloride 0.9% 1,000 ML IV SCH (11:00)
--- NOTE | 2019-05-25 11:00 | PCM.PN ---
- General Info Date of Service: 05/25/19 Subjective Update: No acute events overnight. Patient reports she is feeling a little better today but still feels poorly. She is on 4 L of supplemental oxygen at this time. Cough is a little more productive. She feels very weak. She was somnolent most of the night but is more alert today. Chest x-ray this morning shows obvious right-sided pneumonia and probable left lower lung pneumonia as well. No fevers. White count remains normal. Functional Status: Reports: Pain Controlled - Review of Systems General: Reports: Weakness. Denies: Fever Pulmonary: Reports: Shortness of Breath, Cough - Patient Data Vitals - Most Recent: Last Vital Signs Temp 37.1 C 05/25/19 10:39 Pulse 114 H 05/25/19 10:39 Resp 18 05/25/19 10:39 BP 129/67 05/25/19 10:39 Pulse Ox 93 L 05/25/19 10:39 Weight - Most Recent: 94.801 kg I&O - Last 24 Hours: Intake & Output 05/24/19 05/25/19 05/25/19 22:59 06:59 14:59 Intake Total 230 547 360 Output Total 150 250 Balance 230 397 110 Lab Results Last 24 Hours: Laboratory Results - last 24 hr 05/24/19 05/24/19 05/24/19 Range/Units 18:10 18:10 18:10 WBC 9.1 (4.5-11.0) K/uL RBC 3.61 (3.30-5.50) M/uL Hgb 9.0 L (12.0-15.0) g/dL Hct 32.5 L (36.0-48.0) % MCV 90 (80-98) fL MCH 25 L (27-31) pg MCHC 28 L (32-36) % Plt Count 364 (150-400) K/uL Neut % (Auto) (36-66) % Lymph % (Auto) (24-44) % [place] % (Auto) (2-6) % Eos % (Auto) (2-4) % Baso % (Auto) (0-1) % Sodium 144 (140-148) mmol/L Potassium 4.4 (3.6-5.2) mmol/L Chloride 103 (100-108) mmol/L Carbon Dioxide 35 H (21-32) mmol/L Anion Gap 10.4 (5.0-14.0) mmol/L BUN 19 H D (7-18) mg/dL Creatinine 0.8 (0.6-1.0) mg/dL Est Cr Clr Drug Dosing 47.25 mL/min Estimated GFR (MDRD) > 60 (>60) Glucose 124 H (74-106) mg/dL Lactic Acid (0.4-2.0) mmol/L Calcium 8.8 (8.5-10.1) mg/dL Troponin I 0.033 (0.000-0.056) ng/mL C-Reactive Protein (0.0-0.3) mg/dL NT-Pro-B Natriuret Pep (5-450) pg/mL Urine Color (YELLOW) Urine Appearance (CLEAR) Urine pH (5.0-8.0) Ur Specific [place] (1.008-1.030) Urine Protein (NEGATIVE) mg/dL Urine Glucose (UA) (NEGATIVE) mg/dL Urine Ketones (NEGATIVE) mg/dL Urine Occult Blood (NEGATIVE) Urine Nitrite (NEGATIVE) Urine Bilirubin (NEGATIVE) Urine Urobilinogen (0.2-1.0) EU/dL Ur Leukocyte Esterase (NEGATIVE) Urine RBC (0-5) Urine WBC (0-5) Ur Epithelial Cells Amorphous Sediment Urine Bacteria Urine Mucus 05/24/19 05/24/19 05/24/19 Range/Units 18:10 19:00 19:18 WBC (4.5-11.0) K/uL RBC (3.30-5.50) M/uL Hgb (12.0-15.0) g/dL Hct (36.0-48.0) % MCV (80-98) fL MCH (27-31) pg MCHC (32-36) % Plt Count (150-400) K/uL Neut % (Auto) (36-66) % Lymph % (Auto) (24-44) % [place] % (Auto) (2-6) % Eos % (Auto) (2-4) % Baso % (Auto) (0-1) % Sodium (140-148) mmol/L Potassium (3.6-5.2) mmol/L Chloride (100-108) mmol/L Carbon Dioxide (21-32) mmol/L Anion Gap (5.0-14.0) mmol/L BUN (7-18) mg/dL Creatinine (0.6-1.0) mg/dL Est Cr Clr Drug Dosing mL/min Estimated GFR (MDRD) (>60) Glucose (74-106) mg/dL Lactic Acid 1.4 (0.4-2.0) mmol/L Calcium (8.5-10.1) mg/dL Troponin I (0.000-0.056) ng/mL C-Reactive Protein 1.78 H (0.0-0.3) mg/dL NT-Pro-B Natriuret Pep 6987 H (5-450) pg/mL Urine Color Yellow (YELLOW) Urine Appearance Clear (CLEAR) Urine pH 5.5 (5.0-8.0) Ur Specific [place] >= 1.030 (1.008-1.030) Urine Protein 30 H (NEGATIVE) mg/dL Urine Glucose (UA) Negative (NEGATIVE) mg/dL Urine Ketones Negative (NEGATIVE) mg/dL Urine Occult Blood Trace-intact H (NEGATIVE) Urine Nitrite Negative (NEGATIVE) Urine Bilirubin Negative (NEGATIVE) Urine Urobilinogen 0.2 (0.2-1.0) EU/dL Ur Leukocyte Esterase Negative (NEGATIVE) Urine RBC 5-10 H (0-5) Urine WBC 0-5 (0-5) Ur Epithelial Cells Few Amorphous Sediment Few Urine Bacteria Not seen Urine Mucus Rare 05/25/19 05/25/19 05/25/19 Range/Units 00:00 00:00 04:13 WBC 8.2 (4.5-11.0) K/uL RBC 3.20 L (3.30-5.50) M/uL Hgb 8.3 L (12.0-15.0) g/dL Hct 28.9 L (36.0-48.0) % MCV 90 (80-98) fL MCH 26 L (27-31) pg MCHC 29 L (32-36) % Plt Count 329 (150-400) K/uL Neut % (Auto) 60 (36-66) % Lymph % (Auto) 27 (24-44) % [place] % (Auto) 10 H (2-6) % Eos % (Auto) 2 (2-4) % Baso % (Auto) 1 (0-1) % Sodium (140-148) mmol/L Potassium (3.6-5.2) mmol/L Chloride (100-108) mmol/L Carbon Dioxide (21-32) mmol/L Anion Gap (5.0-14.0) mmol/L BUN (7-18) mg/dL Creatinine (0.6-1.0) mg/dL Est Cr Clr Drug Dosing mL/min Estimated GFR (MDRD) (>60) Glucose (74-106) mg/dL Lactic Acid 1.2 (0.4-2.0) mmol/L Calcium (8.5-10.1) mg/dL Troponin I 0.022 (0.000-0.056) ng/mL C-Reactive Protein (0.0-0.3) mg/dL NT-Pro-B Natriuret Pep (5-450) pg/mL Urine Color (YELLOW) Urine Appearance (CLEAR) Urine pH (5.0-8.0) Ur Specific [place] (1.008-1.030) Urine Protein (NEGATIVE) mg/dL Urine Glucose (UA) (NEGATIVE) mg/dL Urine Ketones (NEGATIVE) mg/dL Urine Occult Blood (NEGATIVE) Urine Nitrite (NEGATIVE) Urine Bilirubin (NEGATIVE) Urine Urobilinogen (0.2-1.0) EU/dL Ur Leukocyte Esterase (NEGATIVE) Urine RBC (0-5) Urine WBC (0-5) Ur Epithelial Cells Amorphous Sediment Urine Bacteria Urine Mucus 05/25/19 Range/Units 04:13 WBC (4.5-11.0) K/uL RBC (3.30-5.50) M/uL Hgb (12.0-15.0) g/dL Hct (36.0-48.0) % MCV (80-98) fL MCH (27-31) pg MCHC (32-36) % Plt Count (150-400) K/uL Neut % (Auto) (36-66) % Lymph % (Auto) (24-44) % [place] % (Auto) (2-6) % Eos % (Auto) (2-4) % Baso % (Auto) (0-1) % Sodium 143 (140-148) mmol/L Potassium 4.3 (3.6-5.2) mmol/L Chloride 103 (100-108) mmol/L Carbon Dioxide 32 (21-32) mmol/L Anion Gap 8.4 (5.0-14.0) mmol/L BUN 17 (7-18) mg/dL Creatinine 0.7 (0.6-1.0) mg/dL Est Cr Clr Drug Dosing 54.00 mL/min Estimated GFR (MDRD) > 60 (>60) Glucose 115 H (74-106) mg/dL Lactic Acid (0.4-2.0) mmol/L Calcium 8.7 (8.5-10.1) mg/dL Troponin I (0.000-0.056) ng/mL C-Reactive Protein (0.0-0.3) mg/dL NT-Pro-B Natriuret Pep (5-450) pg/mL Urine Color (YELLOW) Urine Appearance (CLEAR) Urine pH (5.0-8.0) Ur Specific [place] (1.008-1.030) Urine Protein (NEGATIVE) mg/dL Urine Glucose (UA) (NEGATIVE) mg/dL Urine Ketones (NEGATIVE) mg/dL Urine Occult Blood (NEGATIVE) Urine Nitrite (NEGATIVE) Urine Bilirubin (NEGATIVE) Urine Urobilinogen (0.2-1.0) EU/dL Ur Leukocyte Esterase (NEGATIVE) Urine RBC (0-5) Urine WBC (0-5) Ur Epithelial Cells Amorphous Sediment Urine Bacteria Urine Mucus Cornelio Results Last 24 Hours: Microbiology 05/24/19 20:43 Influenza Type A Antigen Screen - Final Nasal, Unspecified NEGATIVE INFLUENZA A VIRUS AG REFERENCE RANGE: NEGATIVE Influenza Type B Antigen Screen - Final NEGATIVE INFLUENZA B VIRUS AG REFERENCE RANGE: NEGATIVE Med Orders - Current: Current Medications Albuterol (Proventil Neb Soln) 2.5 mg NEB Q4H PRN PRN Reason: Shortness Of Breath/wheezing Albuterol/Ipratropium (Duoneb 3.0-0.5 Mg/3 Ml) 3 ml NEB QIDRT [facility] Last Admin: 05/25/19 06:58 Dose: 3 ml Apixaban (Eliquis) 5 mg PO BID [facility] Last Admin: 05/25/19 09:45 Dose: 5 mg Artificial Tears (Genteal Mild To Moderate Ophth Soln) 0 ml EYEBOTH DAILY [facility] Last Admin: 05/25/19 09:47 Dose: 1 drop Diltiazem HCl (Cardizem Cd) 120 mg PO DAILY [facility] Last Admin: 05/25/19 09:46 Dose: 120 mg Duloxetine HCl (Cymbalta) 60 mg PO DAILY [facility] Last Admin: 05/25/19 09:45 Dose: 60 mg Levofloxacin/Dextrose 750 mg/ (Premix) 150 mls @ 100 mls/hr IV Q24H [facility] Meropenem 1 gm/ Sodium (Chloride) 50 mls @ 100 mls/hr IV Q8H [facility] Insulin Glargine (Lantus Solostar) 15 units SUBCUT DAILY [facility] Last Admin: 05/25/19 10:26 Dose: 15 units Ketotifen Fumarate (Ketotifen 0.025% Ophth Soln) 0 ml EYEBOTH BID [facility] Last Admin: 05/25/19 09:47 Dose: 1 drop Lactobacillus Rhamnosus (Culturelle) 1 cap PO BID [facility] Last Admin: 05/25/19 09:44 Dose: 1 cap Magnesium Oxide (Magnesium Oxide) 400 mg PO DAILY [facility] Last Admin: 05/25/19 09:45 Dose: 400 mg Metoprolol Tartrate (Lopressor) 50 mg PO Q12H [facility] Last Admin: 05/25/19 09:45 Dose: 50 mg Pregabalin (Lyrica) 50 mg PO BID [facility] Last Admin: 05/25/19 10:24 Dose: 50 mg Discontinued Medications Diphtheria/Tetanus/Acell Pertussis (Adacel) 0.5 ml IM .ONCE ONE Stop: 05/25/19 10:01 Levofloxacin/Dextrose 750 mg/ (Premix) 150 mls @ 100 mls/hr IV Q48H [facility] Last Admin: 05/24/19 21:14 Dose: 100 mls/hr Meropenem 1 gm/ Sodium (Chloride) 50 mls @ 200 mls/hr IV Q8H [facility] Last Admin: 05/24/19 20:52 Dose: Not Given Sodium Chloride (Normal Saline) 1,000 mls @ 75 mls/hr IV ASDIRECTED [facility] Last Admin: 05/24/19 20:46 Dose: 75 mls/hr Meropenem 500 mg/ Sodium (Chloride) 50 mls @ 100 mls/hr IV Q8H [facility] Last Admin: 05/25/19 05:18 Dose: 100 mls/hr Oseltamivir Phosphate (Tamiflu) 75 mg PO BID [facility] Oseltamivir Phosphate (Tamiflu) 30 mg PO BID [facility] Stop: 05/29/19 09:01 Last Admin: 05/25/19 09:46 Dose: 30 mg Sodium Chloride (Saline Flush) 10 ml FLUSH ASDIRECTED PRN PRN Reason: Keep Vein Open Last Admin: 05/24/19 18:10 Dose: 10 ml - Exam Quality Assessment: Supplemental Oxygen General: Alert, Oriented, Cooperative, No Acute Distress Lungs: Normal Respiratory Effort, Crackles (both bases). No: Wheezing Cardiovascular: Irregular Rhythm, Tachycardia GI/Abdominal Exam: Soft, No Distention Extremities: No Pedal Edema. No: Increased Warmth Skin: Warm, Dry Psy/Mental Status: Alert, Normal Affect Sepsis Event Note - Evaluation Sepsis Screening Result: No Definite Risk - Focused Exam Vital Signs: Vital Signs Temp Pulse Pulse Resp BP BP Pulse Ox 05/25/19 10:39 37.1 C 114 H 18 129/67 93 L 05/25/19 09:46 107 H 146/59 H 05/25/19 09:45 107 H 146/59 H 05/25/19 07:00 35.9 C L 107 H 18 146/59 H 93 L 05/25/19 06:58 107 H 05/25/19 02:45 36.1 C 20 140/48 L 93 L 05/25/19 00:36 92 L Date Exam was Performed: 05/25/19 Time Exam was Performed: 12:57 - Problem List Review Problem List Initiated/Reviewed/Updated: Yes - My Orders Last 24 Hours: My Active Orders 05/24/19 20:55 Vaccines to be Administered [RC] PER UNIT ROUTINE 05/25/19 09:02 Abdomen 1V Upright [CR] Routine 05/25/19 11:00 Sodium Chloride 0.9% [Normal Saline] 1,000 ml IV ASDIRECTED 05/26/19 05:00 BASIC METABOLIC PANEL,BMP [CHEM] Timed CBC W/O DIFF,HEMOGRAM [HEME] Timed (1) 05/26/19 08:00 GLUCOSE POC LAB TO COLLECT [POC] BID - Plan Plan:: ASSESSMENT AND PLAN - Shortness of breath Bilateral pneumonia-complicated by acute respiratory failure with hypoxia. Recent episode of significant pneumonia secondary to aspiration. Patient reports no recent difficulties with aspiration. Supplemental oxygen is slightly less today than yesterday. Quite weak but otherwise her vital signs have been stable. Cultures pending. Influenza testing was negative. -Continue levofloxacin and meropenem -IV fluids at TKO -Duo nebs 4 times a day scheduled -Albuterol nebs every 4 hours as needed for shortness of breath -supplemental oxygen to keeps oxygen saturation >92% -Follow-up cultures -Discontinue oseltamivir Dehydration-resolved. Insulin-dependent diabetes type 2-controlled by history. -Long acting insulin every am -blood glucose testing before meals and at bedtime Chronic atrial fibrillation-borderline rate control at this time. -continue outpatient medications -cardiac monitoring Maintenance issues - - DVT prophylaxis - continue apixaban - GI prophylaxis -PPI - Nutrition -consistent carb diet - Garcia catheter -chronic incontinence Disposition -I would anticipate discharge back to the long-term after the hospital stay Stanley Nobles M.D.
--- NOTE | 2019-05-25 13:06 | CR ---
Abdomen 1V Upright CLINICAL HISTORY: Question of free air on chest x-ray FINDINGS: There are scattered air-filled loops of small bowel in a nonspecific pattern. No free air is identified along the right lateral abdomen. IMPRESSION: No free air seen on decubitus images of the abdomen
[2019-05-25] MEDS: LORazepam 2 MG/ML SDV IVPUSH PRN (14:27)
[2019-05-25] MEDS ORDERED: Levofloxacin/Dextrose 5%-Water 750 MG in Premix Bag 1 BAG IV SCH (21:00)
[2019-05-26] MEDS: LORazepam 2 MG/ML SDV IVPUSH PRN ×2 (03:04→06:23)
[2019-05-26] MEDS: Albuterol/Ipratropium 3.0-0.5 MG/3 ML Neb Soln NEB SCH ×4 (07:20→21:09)
[2019-05-26] MEDS: Magnesium Oxide 400 MG Tab PO SCH (09:08)
[2019-05-26] MEDS: Apixaban 5 MG Tab PO SCH ×2 (09:08→21:09)
[2019-05-26] MEDS: Diltiazem 120 MG Cap.CD PO SCH ×2 (09:09→09:26)
[2019-05-26] MEDS: DULoxetine 30 MG Cap PO SCH ×2 (09:09→09:26)
[2019-05-26] MEDS: Lactobacillus Rhamnosus GG (Probiotic) Cap PO SCH ×3 (09:09→21:09)
[2019-05-26] MEDS: Metoprolol Tartrate 50 MG Tab PO SCH ×2 (09:10→21:12)
[2019-05-26] MEDS: Hypromellose 0.3% Ophth Soln 15 ML Bottle EYEBOTH SCH (09:10)
[2019-05-26] MEDS: Ketotifen 0.025% Ophth Soln 5 ML Bottle EYEBOTH SCH ×2 (09:10→21:09)
[2019-05-26] MEDS: Pregabalin 50 MG Cap PO SCH ×2 (09:14→21:09)
[2019-05-26] MEDS: Insulin Glargine,Human Rec. Analog 100 Units/ML 3 ML Pen SUBCUT SCH (09:14)
[2019-05-26] MEDS ORDERED: LORazepam 2 MG/ML SDV IVPUSH PRN (09:56)
[2019-05-26] MEDS ORDERED: Morphine 10 MG/0.5 ML Oral Syringe PO PRN (10:13)
--- NOTE | 2019-05-26 10:43 | PCM.PN ---
- General Info Date of Service: 05/26/19 Subjective Update: There were no acute events overnight. The patient received 2 doses of lorazepam last night and is very somnolent this morning and has a great deal of difficulty waking up. Because she is so somnolent she is not able to give me any history this morning. White blood cell count is slightly higher today. She is on slightly more oxygen this morning but I am not quite sure if that is because things are getting worse or because of respiratory depression from the benzodiazepines. She did not have any fevers. Functional Status: Reports: Pain Controlled - Review of Systems General: Reports: Weakness, Other (lethargic ). Denies: Fever - Patient Data Vitals - Most Recent: Last Vital Signs Temp 37.2 C 05/26/19 07:35 Pulse 103 H 05/26/19 09:10 Resp 22 H 05/26/19 07:35 BP 142/75 H 05/26/19 09:10 Pulse Ox 92 L 05/26/19 07:35 Weight - Most Recent: 94.801 kg I&O - Last 24 Hours: Intake & Output 05/25/19 05/26/19 05/26/19 22:59 06:59 14:59 Intake Total 848 531 Balance 848 531 Lab Results Last 24 Hours: Laboratory Results - last 24 hr 05/26/19 05/26/19 Range/Units 07:13 07:13 WBC 13.1 H (4.5-11.0) K/uL RBC 3.72 (3.30-5.50) M/uL Hgb 9.3 L (12.0-15.0) g/dL Hct 33.7 L (36.0-48.0) % MCV 91 (80-98) fL MCH 25 L (27-31) pg MCHC 28 L (32-36) % Plt Count 405 H (150-400) K/uL Sodium 144 (140-148) mmol/L Potassium 4.4 (3.6-5.2) mmol/L Chloride 103 (100-108) mmol/L Carbon Dioxide 34 H (21-32) mmol/L Anion Gap 11.4 (5.0-14.0) mmol/L BUN 12 (7-18) mg/dL Creatinine 0.9 (0.6-1.0) mg/dL Est Cr Clr Drug Dosing 42.23 mL/min Estimated GFR (MDRD) 59 L (>60) Glucose 147 H (74-106) mg/dL Calcium 8.7 (8.5-10.1) mg/dL Cornelio Results Last 24 Hours: Microbiology 05/24/19 20:41 Aerobic Blood Culture - Preliminary Blood - Venous - Lab Draw NO GROWTH AFTER 1 DAY Anaerobic Blood Culture - Preliminary NO GROWTH AFTER 1 DAY 05/24/19 20:35 Aerobic Blood Culture - Preliminary Blood - Venous NO GROWTH AFTER 1 DAY Anaerobic Blood Culture - Preliminary NO GROWTH AFTER 1 DAY Med Orders - Current: Current Medications Albuterol (Proventil Neb Soln) 2.5 mg NEB Q4H PRN PRN Reason: Shortness Of Breath/wheezing Last Admin: 05/25/19 19:34 Dose: 2.5 mg Albuterol/Ipratropium (Duoneb 3.0-0.5 Mg/3 Ml) 3 ml NEB QIDRT [facility] Last Admin: 05/26/19 07:20 Dose: 3 ml Apixaban (Eliquis) 5 mg PO BID [facility] Last Admin: 05/26/19 09:08 Dose: 5 mg Artificial Tears (Genteal Mild To Moderate Ophth Soln) 0 ml EYEBOTH DAILY [facility] Last Admin: 05/26/19 09:10 Dose: 1 drop Diltiazem HCl (Cardizem Cd) 120 mg PO DAILY [facility] Last Admin: 05/26/19 09:26 Dose: Not Given Duloxetine HCl (Cymbalta) 60 mg PO DAILY [facility] Last Admin: 05/26/19 09:26 Dose: Not Given Meropenem 1 gm/ Sodium (Chloride) 50 mls @ 100 mls/hr IV Q8H [facility] Last Admin: 05/26/19 05:24 Dose: 100 mls/hr Sodium Chloride (Normal Saline) 1,000 mls @ 25 mls/hr IV ASDIRECTED [facility] Last Admin: 05/25/19 14:25 Dose: 25 mls/hr Doxycycline Hyclate 100 mg/ (Sodium Chloride) 100 mls @ 100 mls/hr IV Q12H [facility] Insulin Glargine (Lantus Solostar) 15 units SUBCUT DAILY [facility] Last Admin: 05/26/19 09:14 Dose: 15 units Ketotifen Fumarate (Ketotifen 0.025% Ophth Soln) 0 ml EYEBOTH BID [facility] Last Admin: 05/26/19 09:10 Dose: 1 drop Lactobacillus Rhamnosus (Culturelle) 1 cap PO BID [facility] Last Admin: 05/26/19 09:26 Dose: Not Given Lorazepam (Ativan) 0.25 mg IVPUSH Q8H PRN PRN Reason: Anxiety Magnesium Oxide (Magnesium Oxide) 400 mg PO DAILY [facility] Last Admin: 05/26/19 09:08 Dose: 400 mg Metoprolol Tartrate (Lopressor) 50 mg PO Q12H [facility] Last Admin: 05/26/19 09:10 Dose: 50 mg Morphine Sulfate (Morphine 10 Mg/0.5 Ml Oral Syringe) 2.5 mg PO Q4H PRN PRN Reason: air hunger Pregabalin (Lyrica) 50 mg PO BID [facility] Last Admin: 05/26/19 09:14 Dose: 50 mg Discontinued Medications Diphtheria/Tetanus/Acell Pertussis (Adacel) 0.5 ml IM .ONCE ONE Stop: 05/25/19 10:01 Last Admin: 05/25/19 14:37 Dose: Not Given Levofloxacin/Dextrose 750 mg/ (Premix) 150 mls @ 100 mls/hr IV Q48H [facility] Last Admin: 05/24/19 21:14 Dose: 100 mls/hr Meropenem 1 gm/ Sodium (Chloride) 50 mls @ 200 mls/hr IV Q8H [facility] Last Admin: 05/24/19 20:52 Dose: Not Given Sodium Chloride (Normal Saline) 1,000 mls @ 75 mls/hr IV ASDIRECTED [facility] Last Admin: 05/24/19 20:46 Dose: 75 mls/hr Meropenem 500 mg/ Sodium (Chloride) 50 mls @ 100 mls/hr IV Q8H [facility] Last Admin: 05/25/19 05:18 Dose: 100 mls/hr Levofloxacin/Dextrose 750 mg/ (Premix) 150 mls @ 100 mls/hr IV Q24H [facility] Last Admin: 05/25/19 20:22 Dose: 100 mls/hr Lorazepam (Ativan) 0.25 mg IVPUSH Q4H PRN PRN Reason: Anxiety Last Admin: 05/26/19 06:23 Dose: 0.25 mg Oseltamivir Phosphate (Tamiflu) 75 mg PO BID [facility] Oseltamivir Phosphate (Tamiflu) 30 mg PO BID [facility] Stop: 05/29/19 09:01 Last Admin: 05/25/19 09:46 Dose: 30 mg Sodium Chloride (Saline Flush) 10 ml FLUSH ASDIRECTED PRN PRN Reason: Keep Vein Open Last Admin: 05/24/19 18:10 Dose: 10 ml - Exam Quality Assessment: Supplemental Oxygen General: Alert, Cooperative, No Acute Distress, Lethargic Lungs: Decreased Breath Sounds (both bases), Crackles (both bases). No: Normal Respiratory Effort (increased work of breathing ) Cardiovascular: Irregular Rhythm, Tachycardia GI/Abdominal Exam: Soft, No Distention Extremities: No Pedal Edema. No: Increased Warmth Skin: Warm, Dry Psy/Mental Status: Alert. No: Agitated Sepsis Event Note - Evaluation Sepsis Screening Result: No Definite Risk - Focused Exam Vital Signs: Vital Signs Temp Pulse Pulse Pulse Resp BP BP 05/26/19 09:10 103 H 142/75 H 05/26/19 07:35 37.2 C 103 H 22 H 142/75 H 05/26/19 07:26 05/26/19 07:25 98 05/26/19 07:14 05/26/19 06:56 05/26/19 06:04 05/26/19 03:06 36.3 C 89 24 H 05/26/19 01:33 05/25/19 22:44 35.8 C L 97 16 BP Pulse Ox Pulse Ox 05/26/19 09:10 05/26/19 07:35 92 L 05/26/19 07:26 92 L 05/26/19 07:25 05/26/19 07:14 90 L 05/26/19 06:56 52 L 05/26/19 06:04 79 L 05/26/19 03:06 127/51 L 88 L 05/26/19 01:33 92 L 05/25/19 22:44 123/94 H 90 L Date Exam was Performed: 05/26/19 Time Exam was Performed: 16:51 - Problem List Review Problem List Initiated/Reviewed/Updated: Yes - My Orders Last 24 Hours: My Active Orders 05/25/19 11:00 Sodium Chloride 0.9% [Normal Saline] 1,000 ml IV ASDIRECTED 05/26/19 09:56 LORazepam [Ativan] 0.25 mg IVPUSH Q8H PRN 05/26/19 10:13 Morphine [Morphine 10 MG/0.5 ML Oral Syringe] 2.5 mg PO Q4H PRN 05/26/19 10:41 Furosemide [Lasix] 40 mg IVPUSH ONETIME ONE 05/26/19 11:00 Doxycycline [Vibramycin] 100 mg Sodium Chloride 0.9% [Normal Saline] 100 ml IV Q12H 05/26/19 11:30 GLUCOSE POC LAB TO COLLECT [POC] QIDACANDBED 05/26/19 16:30 GLUCOSE POC LAB TO COLLECT [POC] QIDACANDBED 05/26/19 21:00 GLUCOSE POC LAB TO COLLECT [POC] QIDACANDBED 05/27/19 05:00 BASIC METABOLIC PANEL,BMP [CHEM] Timed CBC W/O DIFF,HEMOGRAM [HEME] Timed (1) 05/27/19 07:30 GLUCOSE POC LAB TO COLLECT [POC] QIDACANDBED 05/27/19 11:30 GLUCOSE POC LAB TO COLLECT [POC] QIDACANDBED 05/27/19 16:30 GLUCOSE POC LAB TO COLLECT [POC] QIDACANDBED 05/27/19 21:00 GLUCOSE POC LAB TO COLLECT [POC] QIDACANDBED 05/28/19 07:30 GLUCOSE POC LAB TO COLLECT [POC] QIDACANDBED 05/28/19 11:30 GLUCOSE POC LAB TO COLLECT [POC] QIDACANDBED 05/28/19 16:30 GLUCOSE POC LAB TO COLLECT [POC] QIDACANDBED 05/28/19 21:00 GLUCOSE POC LAB TO COLLECT [POC] QIDACANDBED 05/29/19 07:30 GLUCOSE POC LAB TO COLLECT [POC] QIDACANDBED 05/29/19 11:30 GLUCOSE POC LAB TO COLLECT [POC] QIDACANDBED 05/29/19 16:30 GLUCOSE POC LAB TO COLLECT [POC] QIDACANDBED 05/29/19 21:00 GLUCOSE POC LAB TO COLLECT [POC] QIDACANDBED 05/30/19 07:30 GLUCOSE POC LAB TO COLLECT [POC] QIDACANDBED 05/30/19 11:30 GLUCOSE POC LAB TO COLLECT [POC] QIDACANDBED 05/30/19 16:30 GLUCOSE POC LAB TO COLLECT [POC] QIDACANDBED 05/30/19 21:00 GLUCOSE POC LAB TO COLLECT [POC] QIDACANDBED - Plan Plan:: ASSESSMENT AND PLAN - Shortness of breath Bilateral pneumonia-complicated by acute respiratory failure with hypoxia. Requiring slightly more supplemental oxygen this morning. Very lethargic but this is probably because of too many doses of lorazepam last night. Lungs do not sound too bad on examination. White blood cell count slightly higher. -Continue meropenem -Start doxycycline -Dose of furosemide -IV fluids at TKO -Duo nebs 4 times a day scheduled -Albuterol nebs every 4 hours as needed for shortness of breath -supplemental oxygen to keeps oxygen saturation >92% -Continue pulse oximetry -Follow-up cultures Dehydration-resolved. Insulin-dependent diabetes type 2-controlled. -Long acting insulin every am -blood glucose testing before meals and at bedtime Chronic atrial fibrillation-borderline rate control at this time. -continue outpatient medications if we are able to get her to wake up enough to take them -Continue cardiac monitoring Maintenance issues - - DVT prophylaxis - continue apixaban - GI prophylaxis -PPI - Nutrition -consistent carb diet - Garcia catheter -chronic incontinence Disposition -[facility] Stanley Nobles M.D.
[2019-05-26] MEDS ORDERED: Furosemide 40 MG/4 ML VIAL IVPUSH ONE (11:00)
[2019-05-26] MEDS: Doxycycline 100 MG in Sodium Chloride 0.9% 100 ML IV SCH ×2 (11:06→22:09)
[2019-05-27] MEDS: Albuterol/Ipratropium 3.0-0.5 MG/3 ML Neb Soln NEB SCH ×5 (07:16→20:12)
[2019-05-27] MEDS: Ketotifen 0.025% Ophth Soln 5 ML Bottle EYEBOTH SCH ×3 (09:32→20:12)
[2019-05-27] MEDS: DULoxetine 30 MG Cap PO SCH (09:32)
[2019-05-27] MEDS: Hypromellose 0.3% Ophth Soln 15 ML Bottle EYEBOTH SCH (09:32)
[2019-05-27] MEDS: Apixaban 5 MG Tab PO SCH ×3 (09:32→20:12)
[2019-05-27] MEDS: Diltiazem 120 MG Cap.CD PO SCH (09:33)
[2019-05-27] MEDS: Lactobacillus Rhamnosus GG (Probiotic) Cap PO SCH ×3 (09:35→20:12)
[2019-05-27] MEDS: Magnesium Oxide 400 MG Tab PO SCH (09:36)
[2019-05-27] MEDS: Pregabalin 50 MG Cap PO SCH ×3 (09:39→20:12)
[2019-05-27] MEDS: Metoprolol Tartrate 50 MG Tab PO SCH ×3 (09:39→20:12)
[2019-05-27] MEDS: Insulin Glargine,Human Rec. Analog 100 Units/ML 3 ML Pen SUBCUT SCH (09:42)
--- NOTE | 2019-05-27 10:21 | PCM.PN ---
- General Info Date of Service: 05/27/19 Subjective Update: There were no acute events overnight. Patient slept well. She feels less short of breath. Energy and appetite are better today. No somnolence this morning. No fevers. Supplemental oxygen is down to 4 L. No complaints of abdominal pain or nausea. No aspiration. Functional Status: Reports: Pain Controlled, Tolerating Diet - Review of Systems General: Denies: Fever Pulmonary: Reports: Shortness of Breath, Cough - Patient Data Vitals - Most Recent: Last Vital Signs Temp 36.4 C 05/27/19 08:00 Pulse 98 05/27/19 09:39 Resp 20 05/27/19 08:00 BP 120/74 05/27/19 09:39 Pulse Ox 95 05/27/19 08:00 Weight - Most Recent: 94.801 kg I&O - Last 24 Hours: Intake & Output 05/26/19 05/27/19 05/27/19 22:59 06:59 14:59 Intake Total 550 557 Balance 550 557 Lab Results Last 24 Hours: Laboratory Results - last 24 hr 05/27/19 05/27/19 Range/Units 04:15 04:15 WBC 9.3 (4.5-11.0) K/uL RBC 3.59 (3.30-5.50) M/uL Hgb 9.1 L (12.0-15.0) g/dL Hct 32.3 L (36.0-48.0) % MCV 90 (80-98) fL MCH 25 L (27-31) pg MCHC 28 L (32-36) % Plt Count 360 (150-400) K/uL Sodium 144 (140-148) mmol/L Potassium 3.8 (3.6-5.2) mmol/L Chloride 102 (100-108) mmol/L Carbon Dioxide 36 H (21-32) mmol/L Anion Gap 9.8 (5.0-14.0) mmol/L BUN 12 (7-18) mg/dL Creatinine 0.8 (0.6-1.0) mg/dL Est Cr Clr Drug Dosing 47.51 mL/min Estimated GFR (MDRD) > 60 (>60) Glucose 147 H (74-106) mg/dL Calcium 8.8 (8.5-10.1) mg/dL Cornelio Results Last 24 Hours: Microbiology 05/24/19 20:41 Aerobic Blood Culture - Preliminary Blood - Venous - Lab Draw NO GROWTH AFTER 2 DAYS Anaerobic Blood Culture - Preliminary NO GROWTH AFTER 2 DAYS 05/24/19 20:35 Aerobic Blood Culture - Preliminary Blood - Venous NO GROWTH AFTER 2 DAYS Anaerobic Blood Culture - Preliminary NO GROWTH AFTER 2 DAYS Med Orders - Current: Current Medications Albuterol (Proventil Neb Soln) 2.5 mg NEB Q4H PRN PRN Reason: Shortness Of Breath/wheezing Last Admin: 05/25/19 19:34 Dose: 2.5 mg Albuterol/Ipratropium (Duoneb 3.0-0.5 Mg/3 Ml) 3 ml NEB QIDRT [facility] Last Admin: 05/27/19 07:16 Dose: 3 ml Apixaban (Eliquis) 5 mg PO BID [facility] Last Admin: 05/27/19 09:32 Dose: 5 mg Artificial Tears (Genteal Mild To Moderate Ophth Soln) 0 ml EYEBOTH DAILY [facility] Last Admin: 05/27/19 09:32 Dose: 1 drop Diltiazem HCl (Cardizem Cd) 120 mg PO DAILY [facility] Last Admin: 05/27/19 09:33 Dose: 120 mg Doxycycline Hyclate (Vibramycin) 100 mg PO Q12H [facility] Duloxetine HCl (Cymbalta) 60 mg PO DAILY [facility] Last Admin: 05/27/19 09:32 Dose: 60 mg Meropenem 1 gm/ Sodium (Chloride) 50 mls @ 100 mls/hr IV Q8H [facility] Last Admin: 05/27/19 05:10 Dose: 100 mls/hr Doxycycline Hyclate 100 mg/ (Sodium Chloride) 100 mls @ 100 mls/hr IV Q12H [facility] Stop: 05/27/19 13:00 Last Admin: 05/26/19 22:09 Dose: 100 mls/hr Insulin Glargine (Lantus Solostar) 15 units SUBCUT DAILY [facility] Last Admin: 05/27/19 09:42 Dose: 15 units Ketotifen Fumarate (Ketotifen 0.025% Ophth Soln) 0 ml EYEBOTH BID [facility] Last Admin: 05/27/19 09:32 Dose: 1 drop Lactobacillus Rhamnosus (Culturelle) 1 cap PO BID [facility] Last Admin: 05/27/19 09:35 Dose: 1 cap Magnesium Oxide (Magnesium Oxide) 400 mg PO DAILY [facility] Last Admin: 05/27/19 09:36 Dose: 400 mg Metoprolol Tartrate (Lopressor) 50 mg PO Q12H [facility] Last Admin: 05/27/19 09:39 Dose: 50 mg Morphine Sulfate (Morphine 10 Mg/0.5 Ml Oral Syringe) 2.5 mg PO Q4H PRN PRN Reason: air hunger Pregabalin (Lyrica) 50 mg PO BID [facility] Last Admin: 05/27/19 09:39 Dose: 50 mg Discontinued Medications Diphtheria/Tetanus/Acell Pertussis (Adacel) 0.5 ml IM .ONCE ONE Stop: 05/25/19 10:01 Last Admin: 05/25/19 14:37 Dose: Not Given Furosemide (Lasix) 40 mg IVPUSH ONETIME ONE Stop: 05/26/19 11:01 Last Admin: 05/26/19 11:06 Dose: 40 mg Levofloxacin/Dextrose 750 mg/ (Premix) 150 mls @ 100 mls/hr IV Q48H [facility] Last Admin: 05/24/19 21:14 Dose: 100 mls/hr Meropenem 1 gm/ Sodium (Chloride) 50 mls @ 200 mls/hr IV Q8H [facility] Last Admin: 05/24/19 20:52 Dose: Not Given Sodium Chloride (Normal Saline) 1,000 mls @ 75 mls/hr IV ASDIRECTED [facility] Last Admin: 05/24/19 20:46 Dose: 75 mls/hr Meropenem 500 mg/ Sodium (Chloride) 50 mls @ 100 mls/hr IV Q8H [facility] Last Admin: 05/25/19 05:18 Dose: 100 mls/hr Levofloxacin/Dextrose 750 mg/ (Premix) 150 mls @ 100 mls/hr IV Q24H [facility] Last Admin: 05/25/19 20:22 Dose: 100 mls/hr Sodium Chloride (Normal Saline) 1,000 mls @ 25 mls/hr IV ASDIRECTED [facility] Last Admin: 05/25/19 14:25 Dose: 25 mls/hr Lorazepam (Ativan) 0.25 mg IVPUSH Q4H PRN PRN Reason: Anxiety Last Admin: 05/26/19 06:23 Dose: 0.25 mg Lorazepam (Ativan) 0.25 mg IVPUSH Q8H PRN PRN Reason: Anxiety Oseltamivir Phosphate (Tamiflu) 75 mg PO BID [facility] Oseltamivir Phosphate (Tamiflu) 30 mg PO BID [facility] Stop: 05/29/19 09:01 Last Admin: 05/25/19 09:46 Dose: 30 mg Sodium Chloride (Saline Flush) 10 ml FLUSH ASDIRECTED PRN PRN Reason: Keep Vein Open Last Admin: 05/24/19 18:10 Dose: 10 ml - Exam Quality Assessment: Supplemental Oxygen General: Alert, Oriented, Cooperative, No Acute Distress Lungs: Normal Respiratory Effort, Decreased Breath Sounds (right lung base ), Crackles (both bases R>L) Cardiovascular: Regular Rate, Irregular Rhythm GI/Abdominal Exam: Soft, No Distention Extremities: No Pedal Edema. No: Increased Warmth Skin: Warm, Dry Psy/Mental Status: Alert, Normal Affect Sepsis Event Note - Evaluation Sepsis Screening Result: No Definite Risk - Focused Exam Vital Signs: Vital Signs Temp Pulse Pulse Resp BP BP BP 05/27/19 09:39 98 120/74 05/27/19 09:33 98 120/74 05/27/19 08:00 36.4 C 98 20 120/74 05/27/19 07:16 98 05/27/19 03:00 36.4 C 106 H 16 111/50 L 05/27/19 02:16 05/26/19 22:38 35.9 C L 94 16 128/65 Pulse Ox Pulse Ox 05/27/19 09:39 05/27/19 09:33 05/27/19 08:00 95 05/27/19 07:16 92 L 05/27/19 03:00 88 L 05/27/19 02:16 93 L 05/26/19 22:38 89 L Date Exam was Performed: 05/27/19 Time Exam was Performed: 13:11 - Problem List Review Problem List Initiated/Reviewed/Updated: Yes - My Orders Last 24 Hours: My Active Orders 05/26/19 10:13 Morphine [Morphine 10 MG/0.5 ML Oral Syringe] 2.5 mg PO Q4H PRN 05/26/19 11:00 Doxycycline [Vibramycin] 100 mg Sodium Chloride 0.9% [Normal Saline] 100 ml IV Q12H 05/27/19 07:17 RT Incentive Spirometry [RC] Q1HWA 05/27/19 09:20 Discontinue Telemetry Monitoring [Cardiac Monitoring Discontinue] [RC] Click to Edit 05/27/19 10:19 Convert IV to Saline Lock [OM.PC] Routine RT Acapella [RESPCARE] Routine 05/27/19 11:30 GLUCOSE POC LAB TO COLLECT [POC] QIDACANDBED 05/27/19 16:30 GLUCOSE POC LAB TO COLLECT [POC] QIDACANDBED 05/27/19 21:00 GLUCOSE POC LAB TO COLLECT [POC] QIDACANDBED Doxycycline [Vibramycin] 100 mg PO Q12H 05/28/19 05:00 BASIC METABOLIC PANEL,BMP [CHEM] Timed CBC W/O DIFF,HEMOGRAM [HEME] Timed (1) 05/28/19 07:30 GLUCOSE POC LAB TO COLLECT [POC] QIDACANDBED 05/28/19 11:30 GLUCOSE POC LAB TO COLLECT [POC] QIDACANDBED 05/28/19 16:30 GLUCOSE POC LAB TO COLLECT [POC] QIDACANDBED 05/28/19 21:00 GLUCOSE POC LAB TO COLLECT [POC] QIDACANDBED 05/29/19 07:30 GLUCOSE POC LAB TO COLLECT [POC] QIDACANDBED 05/29/19 11:30 GLUCOSE POC LAB TO COLLECT [POC] QIDACANDBED 05/29/19 16:30 GLUCOSE POC LAB TO COLLECT [POC] QIDACANDBED 05/29/19 21:00 GLUCOSE POC LAB TO COLLECT [POC] QIDACANDBED 05/30/19 07:30 GLUCOSE POC LAB TO COLLECT [POC] QIDACANDBED 05/30/19 11:30 GLUCOSE POC LAB TO COLLECT [POC] QIDACANDBED 05/30/19 16:30 GLUCOSE POC LAB TO COLLECT [POC] QIDACANDBED 05/30/19 21:00 GLUCOSE POC LAB TO COLLECT [POC] QIDACANDBED - Plan Plan:: ASSESSMENT AND PLAN - Shortness of breath Bilateral pneumonia-complicated by acute respiratory failure with hypoxia. Requiring less supplemental oxygen today and starting to look better. Feels better as well. White blood cell count is normal. -Continue meropenem and doxycycline -Saline lock IV -Duo nebs 4 times a day scheduled -Albuterol nebs every 4 hours as needed for shortness of breath -supplemental oxygen to keeps oxygen saturation >92% -Acapella -Follow-up cultures Dehydration-resolved. Insulin-dependent diabetes type 2-controlled. -Long acting insulin every am -blood glucose testing before meals and at bedtime Chronic atrial fibrillation-borderline rate control at this time. -continue outpatient medications -Discontinue cardiac monitoring Maintenance issues - - DVT prophylaxis - continue apixaban - GI prophylaxis -PPI - Nutrition -consistent carb diet - Garcia catheter -chronic incontinence Disposition -I would anticipate discharge back to the group home after the hospital stay Stanley Nobles M.D.
[2019-05-27] MEDS: Doxycycline 100 MG in Sodium Chloride 0.9% 100 ML IV SCH (11:32)
[2019-05-27] MEDS: Colchicine 0.6 MG Tab PO SCH ×3 (12:30→20:12)
[2019-05-27] MEDS: Doxycycline 100 MG Cap PO SCH ×2 (19:19→20:12)
[2019-05-28] MEDS: Albuterol/Ipratropium 3.0-0.5 MG/3 ML Neb Soln NEB SCH ×5 (07:11→22:32)
[2019-05-28] MEDS: Magnesium Oxide 400 MG Tab PO SCH (08:14)
[2019-05-28] MEDS: Apixaban 5 MG Tab PO SCH ×3 (08:14→22:32)
[2019-05-28] MEDS: Colchicine 0.6 MG Tab PO SCH ×3 (08:14→22:32)
[2019-05-28] MEDS: Diltiazem 120 MG Cap.CD PO SCH (08:14)
[2019-05-28] MEDS: DULoxetine 30 MG Cap PO SCH (08:14)
[2019-05-28] MEDS: Lactobacillus Rhamnosus GG (Probiotic) Cap PO SCH ×3 (08:14→22:32)
[2019-05-28] MEDS: Ketotifen 0.025% Ophth Soln 5 ML Bottle EYEBOTH SCH ×3 (08:15→22:32)
[2019-05-28] MEDS: Doxycycline 100 MG Cap PO SCH ×3 (08:15→22:31)
[2019-05-28] MEDS: Hypromellose 0.3% Ophth Soln 15 ML Bottle EYEBOTH SCH (08:16)
[2019-05-28] MEDS: Metoprolol Tartrate 50 MG Tab PO SCH ×3 (08:23→22:32)
[2019-05-28] MEDS: Pregabalin 50 MG Cap PO SCH ×3 (08:24→22:31)
[2019-05-28] MEDS: Insulin Glargine,Human Rec. Analog 100 Units/ML 3 ML Pen SUBCUT SCH (08:24)
--- NOTE | 2019-05-28 10:41 | PCM.PN ---
- General Info Date of Service: 05/28/19 Subjective Update: There were no acute events overnight. No fevers. Supplemental oxygen is down to 3.5 L this morning. She feels a little sleepy and tired but otherwise feels okay. She had one coughing spell this morning but otherwise has not been coughing much. Shortness of breath is improving. No abdominal pain or nausea. Functional Status: Reports: Pain Controlled, Tolerating Diet - Patient Data Vitals - Most Recent: Last Vital Signs Temp 36.3 C 05/28/19 08:11 Pulse 100 05/28/19 08:23 Resp 18 05/28/19 08:11 BP 127/63 05/28/19 08:23 Pulse Ox 89 L 05/28/19 08:11 Weight - Most Recent: 94.801 kg I&O - Last 24 Hours: Intake & Output 05/27/19 05/28/19 05/28/19 22:59 06:59 14:59 Intake Total 50 350 Output Total 200 150 Balance -200 -100 350 Lab Results Last 24 Hours: Laboratory Results - last 24 hr 05/28/19 05/28/19 Range/Units 04:10 04:10 WBC 8.6 (4.5-11.0) K/uL RBC 3.43 (3.30-5.50) M/uL Hgb 8.7 L (12.0-15.0) g/dL Hct 30.8 L (36.0-48.0) % MCV 90 (80-98) fL MCH 25 L (27-31) pg MCHC 28 L (32-36) % Plt Count 372 (150-400) K/uL Sodium 144 (140-148) mmol/L Potassium 3.5 L (3.6-5.2) mmol/L Chloride 104 (100-108) mmol/L Carbon Dioxide 35 H (21-32) mmol/L Anion Gap 8.5 (5.0-14.0) mmol/L BUN 13 (7-18) mg/dL Creatinine 0.8 (0.6-1.0) mg/dL Est Cr Clr Drug Dosing 47.51 mL/min Estimated GFR (MDRD) > 60 (>60) Glucose 137 H (74-106) mg/dL Calcium 8.2 L (8.5-10.1) mg/dL Cornelio Results Last 24 Hours: Microbiology 02/27/20 20:35 Aerobic Blood Culture - Preliminary Blood - Venous NO GROWTH AFTER 3 DAYS Anaerobic Blood Culture - Preliminary NO GROWTH AFTER 3 DAYS 05/24/19 20:41 Aerobic Blood Culture - Preliminary Blood - Venous - Lab Draw NO GROWTH AFTER 3 DAYS Anaerobic Blood Culture - Preliminary NO GROWTH AFTER 3 DAYS Med Orders - Current: Current Medications Albuterol (Proventil Neb Soln) 2.5 mg NEB Q4H PRN PRN Reason: Shortness Of Breath/wheezing Last Admin: 05/25/19 19:34 Dose: 2.5 mg Albuterol/Ipratropium (Duoneb 3.0-0.5 Mg/3 Ml) 3 ml NEB QIDRT [facility] Last Admin: 05/28/19 10:34 Dose: 3 ml Apixaban (Eliquis) 5 mg PO BID [facility] Last Admin: 05/28/19 08:14 Dose: 5 mg Artificial Tears (Genteal Mild To Moderate Ophth Soln) 0 ml EYEBOTH DAILY [facility] Last Admin: 05/28/19 08:16 Dose: 1 drop Colchicine (Colcrys) 0.6 mg PO BID [facility] Stop: 05/29/19 21:01 Last Admin: 05/28/19 08:14 Dose: 0.6 mg Diltiazem HCl (Cardizem Cd) 120 mg PO DAILY [facility] Last Admin: 05/28/19 08:14 Dose: 120 mg Doxycycline Hyclate (Vibramycin) 100 mg PO Q12H [facility] Last Admin: 05/28/19 08:15 Dose: 100 mg Duloxetine HCl (Cymbalta) 60 mg PO DAILY [facility] Last Admin: 05/28/19 08:14 Dose: 60 mg Meropenem 1 gm/ Sodium (Chloride) 50 mls @ 100 mls/hr IV Q8H [facility] Last Admin: 05/28/19 07:00 Dose: 100 mls/hr Insulin Glargine (Lantus Solostar) 15 units SUBCUT DAILY [facility] Last Admin: 05/28/19 08:24 Dose: 15 units Ketotifen Fumarate (Ketotifen 0.025% Ophth Soln) 0 ml EYEBOTH BID [facility] Last Admin: 05/28/19 08:15 Dose: 1 drop Lactobacillus Rhamnosus (Culturelle) 1 cap PO BID [facility] Last Admin: 05/28/19 08:14 Dose: 1 cap Magnesium Oxide (Magnesium Oxide) 400 mg PO DAILY [facility] Last Admin: 05/28/19 08:14 Dose: 400 mg Metoprolol Tartrate (Lopressor) 50 mg PO Q12H [facility] Last Admin: 05/28/19 08:23 Dose: 50 mg Pregabalin (Lyrica) 50 mg PO BID [facility] Last Admin: 05/28/19 08:24 Dose: 50 mg Discontinued Medications Diphtheria/Tetanus/Acell Pertussis (Adacel) 0.5 ml IM .ONCE ONE Stop: 05/25/19 10:01 Last Admin: 05/25/19 14:37 Dose: Not Given Furosemide (Lasix) 40 mg IVPUSH ONETIME ONE Stop: 05/26/19 11:01 Last Admin: 05/26/19 11:06 Dose: 40 mg Levofloxacin/Dextrose 750 mg/ (Premix) 150 mls @ 100 mls/hr IV Q48H [facility] Last Admin: 05/24/19 21:14 Dose: 100 mls/hr Meropenem 1 gm/ Sodium (Chloride) 50 mls @ 200 mls/hr IV Q8H [facility] Last Admin: 05/24/19 20:52 Dose: Not Given Sodium Chloride (Normal Saline) 1,000 mls @ 75 mls/hr IV ASDIRECTED [facility] Last Admin: 05/24/19 20:46 Dose: 75 mls/hr Meropenem 500 mg/ Sodium (Chloride) 50 mls @ 100 mls/hr IV Q8H [facility] Last Admin: 05/25/19 05:18 Dose: 100 mls/hr Levofloxacin/Dextrose 750 mg/ (Premix) 150 mls @ 100 mls/hr IV Q24H [facility] Last Admin: 05/25/19 20:22 Dose: 100 mls/hr Sodium Chloride (Normal Saline) 1,000 mls @ 25 mls/hr IV ASDIRECTED [facility] Last Admin: 05/25/19 14:25 Dose: 25 mls/hr Doxycycline Hyclate 100 mg/ (Sodium Chloride) 100 mls @ 100 mls/hr IV Q12H [facility] Stop: 05/27/19 13:00 Last Admin: 05/27/19 11:32 Dose: 100 mls/hr Lorazepam (Ativan) 0.25 mg IVPUSH Q4H PRN PRN Reason: Anxiety Last Admin: 05/26/19 06:23 Dose: 0.25 mg Lorazepam (Ativan) 0.25 mg IVPUSH Q8H PRN PRN Reason: Anxiety Morphine Sulfate (Morphine 10 Mg/0.5 Ml Oral Syringe) 2.5 mg PO Q4H PRN PRN Reason: air hunger Oseltamivir Phosphate (Tamiflu) 75 mg PO BID [facility] Oseltamivir Phosphate (Tamiflu) 30 mg PO BID [facility] Stop: 05/29/19 09:01 Last Admin: 05/25/19 09:46 Dose: 30 mg Sodium Chloride (Saline Flush) 10 ml FLUSH ASDIRECTED PRN PRN Reason: Keep Vein Open Last Admin: 05/24/19 18:10 Dose: 10 ml - Exam Quality Assessment: Supplemental Oxygen General: Alert, Oriented, Cooperative, No Acute Distress Lungs: Normal Respiratory Effort, Decreased Breath Sounds (Both bases), Crackles (Both bases) Cardiovascular: Regular Rate, Irregular Rhythm GI/Abdominal Exam: Soft, No Distention Extremities: No Pedal Edema Psy/Mental Status: Alert, Normal Affect Sepsis Event Note - Evaluation Sepsis Screening Result: No Definite Risk - Focused Exam Vital Signs: Vital Signs Temp Pulse Pulse Resp BP BP Pulse Ox 05/28/19 08:23 100 127/63 05/28/19 08:14 100 127/63 05/28/19 08:11 36.3 C 100 18 127/63 89 L 05/28/19 07:12 93 05/28/19 03:00 36.2 C 92 17 131/62 92 L Pulse Ox 05/28/19 08:23 05/28/19 08:14 05/28/19 08:11 05/28/19 07:12 93 L 05/28/19 03:00 Date Exam was Performed: 05/28/19 Time Exam was Performed: 10:40 - Problem List Review Problem List Initiated/Reviewed/Updated: Yes - My Orders Last 24 Hours: My Active Orders 05/27/19 10:19 Convert IV to Saline Lock [OM.PC] Routine RT Acapella [RESPCARE] Routine 05/27/19 10:26 PT Evaluation and Treatment [CONS] Routine 05/27/19 10:27 Up With Assistance [RC] ASDIRECTED 05/27/19 11:00 Colchicine [Colcrys] 0.6 mg PO BID 05/27/19 21:00 Doxycycline [Vibramycin] 100 mg PO Q12H 05/28/19 11:30 GLUCOSE POC LAB TO COLLECT [POC] QIDACANDBED 05/28/19 16:30 GLUCOSE POC LAB TO COLLECT [POC] QIDACANDBED 05/28/19 21:00 GLUCOSE POC LAB TO COLLECT [POC] QIDACANDBED 05/29/19 05:00 BASIC METABOLIC PANEL,BMP [CHEM] Timed CBC W/O DIFF,HEMOGRAM [HEME] Timed (1) 05/29/19 07:30 GLUCOSE POC LAB TO COLLECT [POC] QIDACANDBED 05/29/19 11:30 GLUCOSE POC LAB TO COLLECT [POC] QIDACANDBED 05/29/19 16:30 GLUCOSE POC LAB TO COLLECT [POC] QIDACANDBED 05/29/19 21:00 GLUCOSE POC LAB TO COLLECT [POC] QIDACANDBED 05/30/19 07:30 GLUCOSE POC LAB TO COLLECT [POC] QIDACANDBED 05/30/19 11:30 GLUCOSE POC LAB TO COLLECT [POC] QIDACANDBED 05/30/19 16:30 GLUCOSE POC LAB TO COLLECT [POC] QIDACANDBED 05/30/19 21:00 GLUCOSE POC LAB TO COLLECT [POC] QIDACANDBED - Plan Plan:: ASSESSMENT AND PLAN - Shortness of breath Bilateral pneumonia-complicated by acute respiratory failure with hypoxia. Slowly improving and now down to 3.5 L of supplemental oxygen. Weak and fatigued but otherwise doing fairly well. Symptoms are fairly minimal at this point. -Continue meropenem and doxycycline -Saline lock IV -Duo nebs 4 times a day scheduled -Albuterol nebs every 4 hours as needed for shortness of breath -supplemental oxygen to keeps oxygen saturation >92% -Acapella -Follow-up cultures -Physical therapy Dehydration-resolved. Insulin-dependent diabetes type 2-controlled. -Long acting insulin every am -blood glucose testing before meals and at bedtime Chronic atrial fibrillation-rate control acceptable. -continue outpatient medications Maintenance issues - - DVT prophylaxis - continue apixaban - GI prophylaxis -PPI - Nutrition -consistent carb diet - Garcia catheter -chronic incontinence Disposition -I would anticipate discharge back to the correction after the hospital stay Stanley Nobles M.D.
[2019-05-28] MEDS ORDERED: Furosemide 40 MG/4 ML VIAL IVPUSH ONE (11:00)
[2019-05-29] MEDS: Albuterol/Ipratropium 3.0-0.5 MG/3 ML Neb Soln NEB SCH ×3 (07:19→14:25)
[2019-05-29] MEDS: Diltiazem 120 MG Cap.CD PO SCH (08:44)
[2019-05-29] MEDS: Colchicine 0.6 MG Tab PO SCH (08:44)
[2019-05-29] MEDS: Hypromellose 0.3% Ophth Soln 15 ML Bottle EYEBOTH SCH (08:45)
[2019-05-29] MEDS: Metoprolol Tartrate 50 MG Tab PO SCH (08:45)
[2019-05-29] MEDS: Doxycycline 100 MG Cap PO SCH (08:45)
[2019-05-29] MEDS: Magnesium Oxide 400 MG Tab PO SCH ×2 (08:45→08:49)
[2019-05-29] MEDS: Pregabalin 50 MG Cap PO SCH (08:45)
[2019-05-29] MEDS: Apixaban 5 MG Tab PO SCH (08:45)
[2019-05-29] MEDS: DULoxetine 30 MG Cap PO SCH (08:45)
[2019-05-29] MEDS: Lactobacillus Rhamnosus GG (Probiotic) Cap PO SCH (08:45)
[2019-05-29] MEDS: Ketotifen 0.025% Ophth Soln 5 ML Bottle EYEBOTH SCH (08:45)
[2019-05-29] MEDS: Insulin Glargine,Human Rec. Analog 100 Units/ML 3 ML Pen SUBCUT SCH (08:46)
--- NOTE | 2019-05-29 14:00 | PCM.DCSUM1 ---
Discharge Summary - Hospital Course Brief History: Ms. Flores is an 84-year-old woman who was admitted through the emergency department with weakness cough and shortness of breath secondary to bilateral pneumonia. - Discharge Data Discharge Date: 05/29/19 Discharge Disposition: Home, Self-Care 01 Condition: Fair - Referral to Home Health Primary Care Physician: PCP None - Discharge Diagnosis/Problem(s) (1) Pneumonia SNOMED Code(s): 130234996 ICD Code: J18.9 - PNEUMONIA, UNSPECIFIED ORGANISM Status: Acute Current Visit: Yes (2) Hypoxemia SNOMED Code(s): 745217043 ICD Code: R09.02 - HYPOXEMIA Status: Acute Priority: High Current Visit : Yes (3) Mild dehydration SNOMED Code(s): 8109153750193 ICD Code: E86.0 - DEHYDRATION Status: Acute Priority: High Current Visit: Yes (4) Diabetes mellitus SNOMED Code(s): 60197503 ICD Code: E11.9 - TYPE 2 DIABETES MELLITUS WITHOUT COMPLICATIONS Status: Chronic Priority: Low Current Visit: Yes Qualifiers: Diabetes mellitus type: type 2 Diabetes mellitus penitentiary insulin use: with penitentiary use Diabetes mellitus complication status: with neurologic complications Diabetes mellitus complication detail: with unspecified neuropathy Qualified Code(s): E11.40 - Type 2 diabetes mellitus with diabetic neuropathy, unspecified; Z79.4 - longterm (current) use of insulin - Patient Summary/Data Consults: Consultations 05/24/19 20:25 Consult to Spiritual Care [CONS] Routine 05/27/19 10:26 PT Evaluation and Treatment [CONS] Routine Please Evaluate and Treat. PT Reason for Consult: Strengthening This query below is only for informational purposes and is not editable. Admission Diagnosis/Problem: Hypoxia Hospital Course: Ms. Flores is an 84-year-old woman who was admitted through the emergency department with symptoms of weakness, cough, and shortness of breath secondary to bilateral pneumonia. She was hospitalized at this facility approximately 6 weeks ago with aspiration pneumonia. She was discharged back to the [facility]f on supplemental oxygen. Because of recent hospitalization she was started on broad-spectrum IV antibiotic therapy with doxycycline and meropenem. She was felt to be mildly dehydrated and did receive IV fluids during the initial portion of her hospitalization. Blood cultures were obtained which remain negative throughout the hospital stay. Influenza a and B antigens were obtained in the emergency department and were found to be negative. She was treated with nebulizer therapy as needed and supplemental oxygen for her hypoxia. She slowly improved over the next several days of hospitalization and remained afebrile throughout that period of time. At the time of discharge she will be converted to oral antibiotic therapy with doxycycline and Omnicef for an additional 3 days of antibiotic therapy for management of her pneumonia. Tamiflu was listed as a medication on her med list and this will be discontinued as it is not indicated at this time. She had no evidence of significant aspiration noted during hospital stay and did have speech therapy evaluation during her previous hospitalization. Activity will be as tolerated and she will resume her usual diet. Follow-up with primary care provider will be at the alf as needed. She discharged to the [facility]f on supplemental oxygen 3-1/2 L/min via nasal cannula. - Patient Instructions Diet: Usual Diet as Tolerated Activity: As Tolerated - Discharge Plan *PRESCRIPTION DRUG MONITORING PROGRAM REVIEWED*: Not Applicable *COPY OF PRESCRIPTION DRUG MONITORING REPORT IN PATIENT SANTOS: Not Applicable Prescriptions/Med Rec: Cefdinir [Omnicef] 300 mg PO Q12H #6 cap Doxycycline [Vibramycin] 100 mg PO Q12H #6 cap Home Medications: Home Meds Aspirin 325 mg PO DAILY 01/01/13 [History] Cholecalciferol (Vitamin D3) [Vitamin D3] 400 units PO DAILY 01/01/13 [History] DULoxetine HCl [Cymbalta] 60 mg PO DAILY 01/01/13 [History] metFORMIN [Glucophage] 1,000 mg PO BID 07/12/14 [History] Pregabalin [Lyrica] 50 mg PO BID 04/09/19 [History] Oxybutynin [Oxybutynin ER] 5 mg PO DAILY 04/10/19 [History] Apixaban [Eliquis] 5 mg PO BID #60 tablet 04/22/19 [Rx] Diltiazem [Cardizem CD] 120 mg PO DAILY #30 cap.cd 04/22/19 [Rx] Lactobacillus Rhamnosus GG [Culturelle] 1 cap PO BID #60 cap 04/22/19 [Rx] Metoprolol Tartrate [Lopressor] 50 mg PO Q12H #60 tablet 04/22/19 [Rx] Albuterol Sulfate 1 dose INH Q4H PRN 05/04/19 [History] Azelastine HCl [Azelastine] 1 drop EYEBOTH BID 05/04/19 [History] Carboxymethylcellulose Sodium [Refresh Tears] 1 drop EYEBOTH DAILY 05/04/19 [ History] Diclofenac Sodium [Voltaren 1% Gel] 2 gram TOP BID 05/04/19 [History] Ferrous Sulfate 1 tab PO BID 05/04/19 [History] Insulin Glargine,Hum.Rec.Anlog [Lantus Solostar] 15 units SQ DAILY 05/04/19 [ History] Ipratropium/Albuterol Sulfate [Iprat-Albut 0.5-3(2.5) mg/3 ml] 1 dose INH QID [History] Magnesium 400 mg PO DAILY 05/04/19 [History] Triamcinolone Acetonide [Triamcinolone Acetonide 0.1% Crm] 1 dose TOP BID [History] Meclizine [Antivert] 25 mg PO Q8H PRN 05/24/19 [History] Cefdinir [Omnicef] 300 mg PO Q12H #6 cap 05/29/19 [Rx] Doxycycline [Vibramycin] 100 mg PO Q12H #6 cap 05/29/19 [Rx] Oxygen Therapy Mode: Nasal Cannula Oxygen Flow Rate (L/min): 3.5 Maintain SpO2% greater than: 90 Referrals: Parviz Bautista MD [Physician] - - Discharge Summary/Plan Comment DC Time >30 min.: No - Patient Data Vitals - Most Recent: Last Vital Signs Temp 98.4 F 05/29/19 10:57 Pulse 98 05/29/19 10:57 Resp 18 05/29/19 10:57 BP 115/45 L 05/29/19 10:57 Pulse Ox 94 L 05/29/19 10:57 Weight - Most Recent: 209 lb 0.007 oz I&O - Last 24 hours: Intake & Output 05/28/19 05/29/19 05/29/19 22:59 06:59 14:59 Intake Total 110 50 480 Output Total 700 150 Balance -590 -100 480 Lab Results - Last 24 hrs: Laboratory Results - last 24 hr 05/29/19 05/29/19 Range/Units 05:00 05:00 WBC 8.3 (4.5-11.0) K/uL RBC 3.63 (3.30-5.50) M/uL Hgb 8.9 L (12.0-15.0) g/dL Hct 32.4 L (36.0-48.0) % MCV 89 (80-98) fL MCH 25 L (27-31) pg MCHC 28 L (32-36) % Plt Count 374 (150-400) K/uL Sodium 147 (140-148) mmol/L Potassium 3.2 L (3.6-5.2) mmol/L Chloride 103 (100-108) mmol/L Carbon Dioxide 38 H (21-32) mmol/L Anion Gap 9.2 (5.0-14.0) mmol/L BUN 11 (7-18) mg/dL Creatinine 0.7 (0.6-1.0) mg/dL Est Cr Clr Drug Dosing 54.30 mL/min Estimated GFR (MDRD) > 60 (>60) Glucose 139 H (74-106) mg/dL Calcium 8.4 L (8.5-10.1) mg/dL MARIAMA Results - Last 24 hrs: Microbiology 05/24/19 20:35 Aerobic Blood Culture - Preliminary Blood - Venous NO GROWTH AFTER 4 DAYS Anaerobic Blood Culture - Preliminary NO GROWTH AFTER 4 DAYS 05/24/19 20:41 Aerobic Blood Culture - Preliminary Blood - Venous - Lab Draw NO GROWTH AFTER 4 DAYS Anaerobic Blood Culture - Preliminary NO GROWTH AFTER 4 DAYS Med Orders - Current: Current Medications Albuterol (Proventil Neb Soln) 2.5 mg NEB Q4H PRN PRN Reason: Shortness Of Breath/wheezing Last Admin: 05/25/19 19:34 Dose: 2.5 mg Albuterol/Ipratropium (Duoneb 3.0-0.5 Mg/3 Ml) 3 ml NEB QIDRT [facility] Last Admin: 05/29/19 10:48 Dose: 3 ml Apixaban (Eliquis) 5 mg PO BID [facility] Last Admin: 05/29/19 08:45 Dose: 5 mg Artificial Tears (Genteal Mild To Moderate Ophth Soln) 0 ml EYEBOTH DAILY [facility] Last Admin: 05/29/19 08:45 Dose: 1 drop Colchicine (Colcrys) 0.6 mg PO BID [facility] Stop: 05/29/19 21:01 Last Admin: 05/29/19 08:44 Dose: 0.6 mg Diltiazem HCl (Cardizem Cd) 120 mg PO DAILY [facility] Last Admin: 05/29/19 08:44 Dose: 120 mg Doxycycline Hyclate (Vibramycin) 100 mg PO Q12H [facility] Last Admin: 05/29/19 08:45 Dose: 100 mg Duloxetine HCl (Cymbalta) 60 mg PO DAILY [facility] Last Admin: 05/29/19 08:45 Dose: 60 mg Meropenem 1 gm/ Sodium (Chloride) 50 mls @ 100 mls/hr IV Q8H [facility] Last Admin: 05/29/19 05:41 Dose: 100 mls/hr Insulin Glargine (Lantus Solostar) 15 units SUBCUT DAILY [facility] Last Admin: 05/29/19 08:46 Dose: 15 units Ketotifen Fumarate (Ketotifen 0.025% Ophth Soln) 0 ml EYEBOTH BID [facility] Last Admin: 05/29/19 08:45 Dose: 1 drop Lactobacillus Rhamnosus (Culturelle) 1 cap PO BID [facility] Last Admin: 05/29/19 08:45 Dose: 1 cap Magnesium Oxide (Magnesium Oxide) 400 mg PO DAILY [facility] Last Admin: 05/29/19 08:49 Dose: Not Given Metoprolol Tartrate (Lopressor) 50 mg PO Q12H [facility] Last Admin: 05/29/19 08:45 Dose: 50 mg Pregabalin (Lyrica) 50 mg PO BID [facility] Last Admin: 05/29/19 08:45 Dose: 50 mg Discontinued Medications Diphtheria/Tetanus/Acell Pertussis (Adacel) 0.5 ml IM .ONCE ONE Stop: 05/25/19 10:01 Last Admin: 05/25/19 14:37 Dose: Not Given Furosemide (Lasix) 40 mg IVPUSH ONETIME ONE Stop: 05/26/19 11:01 Last Admin: 05/26/19 11:06 Dose: 40 mg Furosemide (Lasix) 40 mg IVPUSH ONETIME ONE Stop: 05/28/19 11:01 Last Admin: 05/28/19 11:18 Dose: 40 mg Levofloxacin/Dextrose 750 mg/ (Premix) 150 mls @ 100 mls/hr IV Q48H [facility] Last Admin: 05/24/19 21:14 Dose: 100 mls/hr Meropenem 1 gm/ Sodium (Chloride) 50 mls @ 200 mls/hr IV Q8H [facility] Last Admin: 05/24/19 20:52 Dose: Not Given Sodium Chloride (Normal Saline) 1,000 mls @ 75 mls/hr IV ASDIRECTED [facility] Last Admin: 05/24/19 20:46 Dose: 75 mls/hr Meropenem 500 mg/ Sodium (Chloride) 50 mls @ 100 mls/hr IV Q8H [facility] Last Admin: 05/25/19 05:18 Dose: 100 mls/hr Levofloxacin/Dextrose 750 mg/ (Premix) 150 mls @ 100 mls/hr IV Q24H [facility] Last Admin: 05/25/19 20:22 Dose: 100 mls/hr Sodium Chloride (Normal Saline) 1,000 mls @ 25 mls/hr IV ASDIRECTED [facility] Last Admin: 05/25/19 14:25 Dose: 25 mls/hr Doxycycline Hyclate 100 mg/ (Sodium Chloride) 100 mls @ 100 mls/hr IV Q12H [facility] Stop: 05/27/19 13:00 Last Admin: 05/27/19 11:32 Dose: 100 mls/hr Lorazepam (Ativan) 0.25 mg IVPUSH Q4H PRN PRN Reason: Anxiety Last Admin: 05/26/19 06:23 Dose: 0.25 mg Lorazepam (Ativan) 0.25 mg IVPUSH Q8H PRN PRN Reason: Anxiety Morphine Sulfate (Morphine 10 Mg/0.5 Ml Oral Syringe) 2.5 mg PO Q4H PRN PRN Reason: air hunger Oseltamivir Phosphate (Tamiflu) 75 mg PO BID [facility] Oseltamivir Phosphate (Tamiflu) 30 mg PO BID [facility] Stop: 05/29/19 09:01 Last Admin: 05/25/19 09:46 Dose: 30 mg Sodium Chloride (Saline Flush) 10 ml FLUSH ASDIRECTED PRN PRN Reason: Keep Vein Open Last Admin: 05/24/19 18:10 Dose: 10 ml - Exam General: Reports: Alert, Oriented, Cooperative, No Acute Distress Lungs: Reports: Clear to Auscultation, Normal Respiratory Effort Cardiovascular: Reports: Regular Rate, Regular Rhythm, No Murmurs GI/Abdominal Exam: Soft, Non-Tender, No Organomegaly, No Distention Extremities: Non-Tender, No Pedal Edema
[2019-05-29 14:40] VITALS: BP 130/46; PULSE 88
== END 2019-05-29 16:00 | disposition home or self-care (01) | DRG 193 ==
LOC: JP.ED 17:44 → JP.MS 19:37
PROVIDERS: ADMIT Internal Medicine; ATTEND Internal Medicine
DX: R09.02 Hypoxemia (principal); J18.9 Pneumonia, unspecified organism; R53.1 Weakness; R79.89 Other specified abnormal findings of blood chemistry; J96.01 Acute respiratory failure with hypoxia; I48.91 Unspecified atrial fibrillation; I48.92 Unspecified atrial flutter; I48.20 Chronic atrial fibrillation, unspecified; Z66 Do not resuscitate; Z86.010 Personal history of colon polyps; R32 Unspecified urinary incontinence; E86.0 Dehydration; H54.7 Unspecified visual loss; E78.00 Pure hypercholesterolemia, unspecified; E11.40 Type 2 diabetes mellitus with diabetic neuropathy, unspecified; I10 Essential (primary) hypertension; E11.9 Type 2 diabetes mellitus without complications; K21.9 Gastro-esophageal reflux disease without esophagitis; M54.9 Dorsalgia, unspecified; G89.29 Other chronic pain; M19.90 Unspecified osteoarthritis, unspecified site; F32.9 Major depressive disorder, single episode, unspecified; E66.9 Obesity, unspecified; Z96.649 Presence of unspecified artificial hip joint; Z98.49 Cataract extraction status, unspecified eye; Z99.81 Dependence on supplemental oxygen; Z91.011 Allergy to milk products; Z79.82 Long term (current) use of aspirin; Z79.01 Long term (current) use of anticoagulants; Z79.51 Long term (current) use of inhaled steroids; Z79.4 Long term (current) use of insulin; Z79.899 Other long term (current) drug therapy; Z88.0 Allergy status to penicillin; Z86.73 Personal history of transient ischemic attack (TIA), and cerebral infarction without residual deficits
CPT/HCPCS: 36415; 71045; 71045-26; 74018; 74018-26; 80048; 81001; 82962; 83605; 83880; 84484; 85025; 85027; 86140; 87040; 87804; 87804-59; 93005; 93010; 94640; 94667; 94668; 94762; 97161-GP; 99284; 99285-25; A9270-GY; J1815-GY; J1940; J1956; J2060; J2185; J3490; J7030; J7050; J7620-GY

== ENCOUNTER 2019-11-26 11:07 | Emergency (ER) | payer MEDICARE, MEDICAID ==
--- NOTE | 2019-11-26 12:32 | EDM.PDOC ---
ED HPI GENERAL MEDICAL PROBLEM - General Chief Complaint: Abdominal Pain Time Seen by Provider: 11/26/19 11:08 Source of Information: Reports: Family, Assisted Records, Old Records History Limitations: Reports: Altered Mental Status - History of Present Illness INITIAL COMMENTS - FREE TEXT/NARRATIVE: 84-year-old female with history of respiratory failure, hospitalization for pneumonia and dehydration to [facility] with nominal distention and diarrhea. The symptoms started within the past 24 hours. The [facility] became alarmed and sent her to us for further evaluation. Patient is not able to provide any history. She has not had a fever. She has had no complaints. I discussed her case with her daughter Iliana Carlin who is her power of family law attorney the patient is DNR/DNI. They would like her evaluated and then be contacted regarding admission versus not admission and further treatment. Abdomen Pain Score (Numeric/FACES): 5 - Related Data Allergies Allergy/AdvReac Type Severity Reaction Status Date / Time milk Allergy Cannot Verified 05/24/19 17:58 Remember Penicillins Allergy Hives Verified 05/24/19 17:58 Home Meds: Home Meds Aspirin 325 mg PO DAILY 01/01/13 [History] Cholecalciferol (Vitamin D3) [Vitamin D3] 400 units PO DAILY 01/01/13 [History] DULoxetine HCl [Cymbalta] 60 mg PO DAILY 01/01/13 [History] metFORMIN [Glucophage] 1,000 mg PO BID 07/12/14 [History] Pregabalin [Lyrica] 50 mg PO BID 04/09/19 [History] Oxybutynin [Oxybutynin ER] 5 mg PO DAILY 04/10/19 [History] Apixaban [Eliquis] 5 mg PO BID #60 tablet 04/22/19 [Rx] Diltiazem [Cardizem CD] 120 mg PO DAILY #30 cap.cd 04/22/19 [Rx] Lactobacillus Rhamnosus GG [Culturelle] 1 cap PO BID #60 cap 04/22/19 [Rx] Metoprolol Tartrate [Lopressor] 50 mg PO Q12H #60 tablet 04/22/19 [Rx] Albuterol Sulfate 1 dose INH Q4H PRN 05/04/19 [History] Azelastine HCl [Azelastine] 1 drop EYEBOTH BID 05/04/19 [History] Carboxymethylcellulose Sodium [Refresh Tears] 1 drop EYEBOTH DAILY 05/04/19 [History] Diclofenac Sodium [Voltaren 1% Gel] 2 gram TOP BID 05/04/19 [History] Ferrous Sulfate 1 tab PO BID 05/04/19 [History] Insulin Glargine,Hum.Rec.Anlog [Lantus Solostar] 15 units SQ DAILY 05/04/19 [History] Ipratropium/Albuterol Sulfate [Iprat-Albut 0.5-3(2.5) mg/3 ml] 1 dose INH QID 05/04/19 [History] Magnesium 400 mg PO DAILY 05/04/19 [History] Triamcinolone Acetonide [Triamcinolone Acetonide 0.1% Crm] 1 dose TOP BID 05/04/19 [History] Meclizine [Antivert] 25 mg PO Q8H PRN 05/24/19 [History] Past Medical History HEENT History: Reports: Allergic Rhinitis, Cataract, Impaired Vision Other HEENT History: wears glasses Cardiovascular History: Reports: Afib, High Cholesterol, Hypertension Gastrointestinal History: Reports: Colon Polyp, GERD Genitourinary History: Reports: Urinary Incontinence 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: Endometriosis, Musculoskeletal History: Reports: Back Pain, Chronic, Fracture, Osteoarthritis Neurological History: Reports: CVA, Seizure Psychiatric History: Reports: Depression Endocrine/Metabolic History: Reports: Diabetes, Type II, Obesity/BMI 30+ Hematologic History: Reports: Blood Transfusion(s) - Infectious Disease History Infectious Disease History: Reports: Chicken Pox, Measles, Mumps - Past Surgical History HEENT Surgical History: Reports: Cataract Surgery Cardiovascular Surgical History: Reports: None GI Surgical History: Reports: Colonoscopy Female Surgical History: Reports: None Endocrine Surgical History: Reports: None Neurological Surgical History: Reports: None Musculoskeletal Surgical History: Reports: Hip Replacement Dermatological Surgical History: Reports: None Social & Family History - Family History Family Medical History: Noncontributory - Tobacco Use Smoking Status *Q: Never Smoker - Caffeine Use Caffeine Use: Reports: Coffee - Recreational Drug Use Recreational Drug Use: No - Living Situation & Occupation Living situation: Reports: Extended Care Facility (Assisted resident.) ED ROS GENERAL - Review of Systems Review Of Systems: Unable To Obtain Reason Not Obtained: altered mental status Constitutional: Denies: Fever, Chills ED EXAM, GI/ABD - Physical Exam Exam: See Below Exam Limited By: Altered Mental Status General Appearance: Moderate Distress Ears: Normal External Exam Nose: Normal Inspection Throat/Mouth: Normal Inspection Respiratory/Chest: Respiratory Distress, Crackles, Rales Cardiovascular: No: Systolic Murmur, Gallop/S3, Gallop/S4 GI/Abdominal Exam: Distended, Guarding Extremities: Pedal Edema Neurological: Confused, Slow to Respond Skin Exam: Warm Course - Vital Signs Text/Narrative:: This patient presents to the emergency department for evaluation of abdominal pain. Vital signs show that she was hypoxic with an O2 level at 88 to 90% pulse oximeter. Her heart rate and blood pressure were normal. Her exam showed evidence of congestive heart failure with by lateral rales and peripheral edema. Her abdomen was distended but nontender. Chest x-ray shows pleural effusion and cephalization indicating pulmonary congestion. Her abdominal CT scan without contrast showed ascites and signs of cirrhosis. Her BNP was elevated to 10,283. Lactic acid was 1.6. Her basic metabolic profile showed a borderline low potassium of 3.2. Her creatinine is 0.9 and BUN is 18. Her sodium and chloride were normal. CBC showed anemia with a hemoglobin 8.9. Her white blood count was 11,500 and platelets were normal. EKG showed no acute changes. She was treated with Lasix 40 mg IV. I discussed her care with her daughter sided treat this with diuretics to hospitalize her. Intake Lasix 40 mg daily p.o. with supplemental potassium 20 milliequivalents daily. Patient's CODE STATUS is DNR/DNI. [facility] Last Recorded V/S: Last Vital Signs Temp 36.4 C 11/26/19 11:40 Pulse 84 11/26/19 14:46 Resp 20 11/26/19 11:40 BP 141/57 H 11/26/19 14:46 Pulse Ox 92 L 11/26/19 11:40 - Orders/Labs/Meds Orders: Active Orders 24 hr Category Date Time Status CULTURE BLOOD [BC] Stat Lab 11/26/19 14:56 Received CULTURE URINE [RM] Stat Lab 11/26/19 13:32 Ordered MICROSCOPIC ADD TO UA [URIN] Stat Lab 11/26/19 13:27 Ordered UA W/MICROSCOPIC [URIN] Stat Lab 11/26/19 13:27 Ordered Furosemide [Lasix] Med 11/26/19 16:07 Once 40 mg IVPUSH ONETIME ONE Medication Orders Furosemide (Lasix) 40 mg IVPUSH ONETIME ONE Stop: 11/26/19 16:08 Labs: Laboratory Tests 11/26/19 11/26/19 11/26/19 Range/Units 14:56 14:56 14:56 WBC 11.5 H (4.5-11.0) K/uL RBC 4.34 (3.30-5.50) M/uL Hgb 8.9 L (12.0-15.0) g/dL Hct 33.1 L (36.0-48.0) % MCV 76 L (80-98) fL MCH 21 L (27-31) pg MCHC 27 L (32-36) % Plt Count 432 H (150-400) K/uL Neut % (Auto) 69 H (36-66) % Lymph % (Auto) 18 L (24-44) % [place] % (Auto) 11 H (2-6) % Eos % (Auto) 1 L (2-4) % Baso % (Auto) 0 (0-1) % Sodium 144 (140-148) mmol/L Potassium 5.2 (3.6-5.2) mmol/L Chloride 104 (100-108) mmol/L Carbon Dioxide 34 H (21-32) mmol/L Anion Gap 11.2 (5.0-14.0) mmol/L BUN 18 D (7-18) mg/dL Creatinine 0.9 (0.6-1.0) mg/dL Est Cr Clr Drug Dosing 32.23 mL/min Estimated GFR (MDRD) 59 L (>60) Glucose 145 H (74-106) mg/dL Lactic Acid 1.6 (0.4-2.0) mmol/L Calcium 9.0 (8.5-10.1) mg/dL Total Bilirubin 0.3 (0.2-1.0) mg/dL AST 17 (15-37) U/L ALT 15 (12-78) U/L Alkaline Phosphatase 74 (46-116) U/L NT-Pro-B Natriuret Pep 97899 H (5-450) pg/mL Total Protein 8.2 (6.4-8.2) g/dL Albumin 2.9 L (3.4-5.0) g/dL Globulin 5.3 H (2.3-3.5) g/dL Albumin/Globulin Ratio 0.6 L (1.2-2.2) Lipase 93 (73-393) U/L Meds: Medications Generic Name Dose Route Start Last Admin Trade Name Pepe PRN Reason Stop Dose Admin Furosemide 40 mg 11/26/19 16:07 Lasix IVPUSH 11/26/19 16:08 ONETIME ONE Departure - Departure Time of Disposition: 16:10 Disposition: DC/Tfer to [facility] Condition: Fair, Poor Clinical Impression: Congestive heart failure, Anemia - Discharge Information *PRESCRIPTION DRUG MONITORING PROGRAM REVIEWED*: No *COPY OF PRESCRIPTION DRUG MONITORING REPORT IN PATIENT SANTOS: No Instructions: Heart Failure, Self Care, [id number] Referrals: Parviz Bautista MD [Primary Care Provider] - Forms: ED Department Discharge Additional Instructions: Take Lasix once a day beginning tomorrow. Follow-up with your primary care provider in the clinic in 1 week. Return here as needed. Take potassium once a day. Sepsis Event Note (ED) - Evaluation Sepsis Screening Result: No Definite Risk - Focused Exam Vital Signs: Vital Signs Temp Pulse Resp BP Pulse Ox 11/26/19 14:46 84 141/57 H 11/26/19 11:40 36.4 C 83 20 133/59 L 92 L 11/26/19 11:11 36.4 C 83 20 133/59 L 92 L - My Orders Last 24 Hours: My Active Orders 11/26/19 13:27 MICROSCOPIC ADD TO UA [URIN] Stat UA W/MICROSCOPIC [URIN] Stat 11/26/19 13:32 CULTURE URINE [RM] Stat 11/26/19 14:56 CULTURE BLOOD [BC] Stat 11/26/19 16:07 Furosemide [Lasix] 40 mg IVPUSH ONETIME ONE - Assessment/Plan Last 24 Hours: My Active Orders 11/26/19 13:27 MICROSCOPIC ADD TO UA [URIN] Stat UA W/MICROSCOPIC [URIN] Stat 11/26/19 13:32 CULTURE URINE [RM] Stat 11/26/19 14:56 CULTURE BLOOD [BC] Stat 11/26/19 16:07 Furosemide [Lasix] 40 mg IVPUSH ONETIME ONE
--- NOTE | 2019-11-26 14:57 | CR ---
CHEST: Portable 11/26/2019 at 2:49 PM CLINICAL HISTORY:Dyspnea COMPARISON:05/25/2019 FINDINGS: Heart is enlarged. Pulmonary vascularity is cephalized. This is exaggerated by 4.3 level. There is some platelike atelectasis in the right lower lobe similar to prior study. There appears to a moderate-sized left effusion. There are atherosclerotic changes in the aorta. Impression: Cardiomegaly with vascular cephalization suggests some element of CHF. The this is exaggerated by portable trilevel Moderate left effusion. Left lower lobe airspace disease is difficult to exclude Platelike atelectasis right lung base
--- NOTE | 2019-11-26 15:05 | CT ---
Abdomen Pelvis wo Cont CLINICAL HISTORY: Pain COMPARISON: None. TECHNIQUE: Axial tomographic images are obtained from the dome of the diaphragm to the pubic symphysis without IV contrast enhancement. No oral contrast was used. Auto dosage reduction and iterative reconstruction techniques employed. FINDINGS: The lung bases patient has a moderate bilateral pleural effusions. There is some mild compressive atelectasis in the right lung base. There is moderate airspace disease and some consolidation left lower lobe. This may all be compressive atelectasis. Patient has moderate abdominal ascites.. . The liver is small and slightly irregular. Density is heterogeneous. This may represent changes of cirrhosis. Spleen has a normal size and shape. The gallbladder is been removed. The pancreas is somewhat ill-defined near the pancreatic tail. This may be due to ascitic fluid in the mesentery. No mass is identified.. The adrenal glands appear normal bilaterally. The kidneys show no stones or hydronephrosis. There is a prominent extrarenal pelvis on the right. The aorta shows atheromatous plaque without aneurysm. There is no suspicious retroperitoneal adenopathy. There is a low-attenuation ovoid focus in the right inguinal region likely within the inguinal canal. Measures 3.4 x 4.3 cm. This may represent a femoral hernia containing ascitic fluid. The small intestinal configuration is nonacute. There is diffuse colonic diverticulosis without definite evidence of diverticulitis. There is moderate streak artifact in the pelvis from hip prosthesis on the left. There is diffuse subcutaneous edema. IMPRESSION: Changes in the liver suggest cirrhosis Moderate bilateral pleural effusions with bibasal airspace disease most of which is likely atelectasis Moderate abdominal pelvic ascites. When combined with diffuse edema anasarca is a consideration Ovoid fluid collection in the right inguinal region may represent a femoral or inguinal hernia with ascitic fluid
[2019-11-26 15:19] VITALS: BP 141/57; PULSE 84
[2019-11-26] MEDS ORDERED: Furosemide 40 MG/4 ML VIAL IVPUSH ONE (16:07)
== END 2019-11-26 16:49 ==
LOC: JP.ED 11:07
DX: I11.0 Hypertensive heart disease with heart failure (principal); I50.9 Heart failure, unspecified; D64.9 Anemia, unspecified; I48.91 Unspecified atrial fibrillation; E78.00 Pure hypercholesterolemia, unspecified; K21.9 Gastro-esophageal reflux disease without esophagitis; M19.90 Unspecified osteoarthritis, unspecified site; F32.9 Major depressive disorder, single episode, unspecified; E11.9 Type 2 diabetes mellitus without complications; E66.9 Obesity, unspecified; Z88.0 Allergy status to penicillin; Z91.011 Allergy to milk products; Z79.4 Long term (current) use of insulin; Z86.73 Personal history of transient ischemic attack (TIA), and cerebral infarction without residual deficits; Z79.899 Other long term (current) drug therapy; Z68.42 Body mass index [BMI] 45.0-49.9, adult; Z79.01 Long term (current) use of anticoagulants
CPT/HCPCS: 36415; 71045; 74176; 80053; 83605; 83690; 83880; 85025; 87040; 96374; 99284; J1940